=== PATIENT | male | born 1990 | race Caucasian/White ===

== ENCOUNTER 2017-03-15 21:48 | Emergency (ER) | payer MEDICAID ==
--- NOTE | 2017-03-15 22:24 | EDM.PDOC ---
ED HPI GENERAL MEDICAL PROBLEM - General Chief Complaint: Upper Extremity Injury/Pain Stated Complaint: injury to arm post seizure Time Seen by Provider: 03/15/17 21:50 Source of Information: Reports: Patient History Limitations: Reports: No Limitations - History of Present Illness INITIAL COMMENTS - FREE TEXT/NARRATIVE: According to patient he was wrestling in the ditch with his friend. He hurt his right wrist and then claims he had seizure, there was no witnessed seizure.. ambulance was called, when ambulance crew arrived , he was alert and had swelling over the right wrist. The wrist was splinted and pt was brought into the emergency room. Pt is alert, he dose recognizes me and his parents in the room, but keep saying he is just confused , but answers question appropriately. C/o pain in his wrist. No other injuries. No incontinence of stool or urine. No tongue biting . No nausea or vomiting. Pt has had chronic seizures and he is on lamictal and keppra for his seizure. Onset: Today Onset Date: 03/15/17 Onset Time: 21:00 Location: Reports: Other (right ) Severity: Moderate Improves with: Reports: Immobilization, Rest Worsens with: Reports: Movement Associated Symptoms: Reports: Confusion (pt keep ssaying he is confused, and is alert and oriented to time place and person), Seizure (per patient). Denies: Chest Pain, Cough, Diaphoresis, Fever/Chills, Headaches, Nausea/Vomiting, Shortness of Breath, Syncope, Weakness Right Lower Arm Pain Score (Numeric/FACES): 8 - Related Data Allergies Allergy/AdvReac Type Severity Reaction Status Date / Time azithromycin Allergy Hives Verified 03/15/17 22:18 Home Meds: Home Meds Calcium Citrate/Vitamin D3 [Calcium Citrate + D] 1 each PO BID 12/10/13 [History ] Cholecalciferol (Vitamin D3) [D3-2000] 2,000 unit PO DAILY 12/10/13 [History] Cyanocobalamin (Vitamin B-12) [B-12] 500 mcg PO DAILY 12/10/13 [History] Ferrous Sulfate 324 mg PO DAILY 12/10/13 [History] Magnesium Oxide [Magnesium] 400 mg PO DAILY 12/10/13 [History] Multivitamin [Multi-Vitamin Daily] 1 each PO DAILY 12/10/13 [History] Gabapentin [Neurontin] 400 mg PO QID 01/10/15 [History] traZODone 200 mg PO BEDTIME 01/10/15 [History] OLANZapine [Zyprexa] 5 mg PO DAILY 06/11/15 [History] ClonazePAM [KlonoPIN] 0.5 mg PO BID PRN 07/15/15 [History] lamoTRIgine [Lamictal] 50 mg PO DAILY 07/15/15 [History] Past Medical History Other Endocrine/Metabolic History: Hx of diabetes Social & Family History - Tobacco Use Smoking Status *Q: Never Smoker Years of Tobacco use: 4 Used Tobacco, but Quit: No Second Hand Smoke Exposure: Yes - Alcohol Use Days Per Week of Alcohol Use: 0 - Recreational Drug Use Recreational Drug Use: No Recreational Drug Type: Reports: Other (see below) Review of Systems - Review of Systems Review Of Systems: See Below Constitutional: Denies: Diaphoresis, Fever Eyes: Denies: Blurred Vision, Photophobia, Tunnel Vision Ears: Denies: Dizziness, Pain, Tinnitus Nose: Denies: Congestion, Clear Discharge Mouth/Throat: Denies: Bleeding, Pain, Throat Swelling, Hoarse Voice, Painful Swallowing Respiratory: Denies: Cough, Sputum Cardiovascular: Denies: Chest Pain, Syncope GI/Abdominal: Denies: Abdominal Pain, Nausea, Vomiting Genitourinary: Denies: Dysuria, Hematuria Musculoskeletal: Reports: Hand Pain. Denies: Neck Pain, Shoulder Pain, Muscle Stiffness Skin: Denies: Bruising, Pruritis, Rash Neurological: Reports: Confusion, Seizure. Denies: Dizziness, Headache, Numbness, Syncope, Tingling, Tremors, Difficulty Walking, Weakness ED EXAM, GENERAL - Physical Exam Exam: See Below Exam Limited By: No Limitations General Appearance: Alert, WD/WN, No Apparent Distress, Other (Pt is alert, orient to time ,palce and person, but keep trying to convince everyone that he is confused) Eye Exam: Bilateral Eye: EOMI, PERRL Ears: Normal External Exam, Normal Canal, Hearing Grossly Normal, Normal TMs Ear Exam: Bilateral Ear: Auricle Normal, Canal Normal, TM normal Nose: Normal Inspection, Normal Mucosa, No Blood Throat/Mouth: Normal Inspection, Normal Lips, Normal Teeth, Normal Gums, Normal Oropharynx, Normal Voice, No Airway Compromise Head: Atraumatic, Normocephalic Neck: Normal Inspection, Supple, Non-Tender, Full Range of Motion Respiratory/Chest: No Respiratory Distress, Lungs Clear, Normal Breath Sounds, No Accessory Muscle Use, Chest Non-Tender Cardiovascular: Normal Peripheral Pulses, Regular Rate, Rhythm, No Edema, No Gallop, No JVD, No Murmur, No Rub Peripheral Pulses: 2+: Radial (L), Radial (R) GI/Abdominal: Normal Bowel Sounds, Soft, Non-Tender, No Organomegaly, No Distention, No Abnormal Bruit, No Mass Extremities: Pedal Edema, Other (right wrist: there is swelling over the dorsum of the wrist. Tender over the wrist to aplaption. tendr over distal radius and ulna to palaption. Right wrist and forearm is in splint.) Neurological: Alert, Oriented, CN II-XII Intact, Normal Cognition, Normal Gait, Normal Reflexes, No Motor/Sensory Deficits. No: Disoriented, Slow to Respond, Abnormal Gait, Abnormal Reflexes Course - Vital Signs Text/Narrative:: Pt has been alert and oriented times 3 all through the emergency room visit. His CT head is negative for any acute injuries. He does have seizure history , but does not appear like he had one. I have advised patient to followup with his neurologist Apparently patient was wrestling with his friends in a ditch and hurt his right wrist and sustained comminuted distal radial fracture with intra-articular extension of the fracture. I have applied wrist splint. Advised elevation. Arm placed in arm sling. Motrin 800mg 3 times daily as needed. I have talked to Dr. Gusman, orthopaedist personal banking officer at [facility]. She prefer to have patient seen at [facility] clinic in the morning. Pt has been given the clinic phone number and advised to call tomorrow morning and have appointment set up. - Orders/Labs/Meds Orders: Active Orders 24 hr Category Date Time Status Head wo Cont [CT] Stat Exams 03/15/17 22:15 Ordered Wrist Comp Min 3V Rt [CR] Stat Exams 03/15/17 22:13 Ordered DRUG SCREEN, URINE [URCHEM] Stat Lab 03/15/17 22:30 Uncollected Labs: Laboratory Tests 03/15/17 03/15/17 Range/Units 22:23 22:23 WBC 7.7 (4.0-11.0) K/uL RBC 4.27 L (4.50-6.50) M/uL Hgb 13.7 (13.0-18.0) g/dL Hct 39.9 L (40.0-54.0) % MCV 93 (76-96) fL MCH 32.1 H (27.0-32.0) pg MCHC 34.3 (31.0-35.0) g/dL RDW 12.3 (11.0-16.0) % Plt Count 220 D (150-400) K/uL MPV 10.5 H (6.0-10.0) fL Neut % (Auto) 54.1 (45.0-70.0) % Lymph % (Auto) 34.3 (20.0-40.0) % [place] % (Auto) 9.6 (3.0-10.0) % Eos % (Auto) 1.6 (1.0-5.0) % Baso % (Auto) 0.4 (0.0-0.5) % Neut # (Auto) 4.16 (2.00-7.50) K/uL Lymph # (Auto) 2.64 (1.50-4.00) K/uL [place] # (Auto) 0.74 (0.20-0.80) K/uL Eos # (Auto) 0.12 (0.04-0.40) K/uL Baso # (Auto) 0.03 (0.02-0.10) K/uL Sodium 136 (136-145) mmol/L Potassium 3.5 (3.5-5.1) mmol/L Chloride 100 (98-107) mmol/L Carbon Dioxide 26.3 (21.0-32.0) mmol/L Anion Gap 13.2 (5.0-15.0) mmol/L BUN 11 D (8-26) mg/dL Creatinine 1.06 (0.70-1.30) mg/dL Est Cr Clr Drug Dosing TNP Estimated GFR (MDRD) > 60 (>60) MLS/MIN BUN/Creatinine Ratio 10.4 (6-25) Glucose 102 H (74-100) mg/dL Calcium 8.9 (8.5-10.1) mg/dL Phosphorus 3.1 (2.5-4.9) mg/dL Magnesium 2.0 (1.8-2.4) mg/dL Total Bilirubin 0.4 D (0.0-1.0) mg/dL AST 20 (15-37) U/L ALT 28 (12-78) U/L Alkaline Phosphatase 119 H (46-116) U/L Total Protein 7.5 (6.4-8.2) g/dL Albumin 4.1 (3.4-5.0) g/dL Globulin 3.4 (2.2-4.2) g/dL Albumin/Globulin Ratio 1.2 (0.8-2.0) Departure - Departure Time of Disposition: 23:30 Disposition: Home, Self-Care 01 Condition: Good Clinical Impression: Distal radius fracture, right, Seizure disorder - Discharge Information Forms: ED Department Discharge - Problem List & Annotations (1) Distal radius fracture, right SNOMED Code(s): 557632375 Code(s): S52.501A - UNSP FRACTURE OF THE LOWER END OF RIGHT RADIUS, INIT Status: Acute Current Visit: Yes (2) Seizure disorder SNOMED Code(s): 126208615 Code(s): G40.909 - EPILEPSY, UNSP, NOT INTRACTABLE, WITHOUT STATUS EPILEPTICUS Status: Acute Current Visit: Yes - Problem List Review Problem List Initiated/Reviewed/Updated: Yes - My Orders Last 24 Hours: My Active Orders 03/15/17 22:13 Wrist Comp Min 3V Rt [CR] Stat 03/15/17 22:15 Head wo Cont [CT] Stat 03/15/17 22:30 DRUG SCREEN, URINE [URCHEM] Stat - Assessment/Plan Last 24 Hours: My Active Orders 03/15/17 22:13 Wrist Comp Min 3V Rt [CR] Stat 03/15/17 22:15 Head wo Cont [CT] Stat 03/15/17 22:30 DRUG SCREEN, URINE [URCHEM] Stat Assessment:: Right distal radius intraarticular fracture Seizure disorder Plan: Pt has been alert and oriented times 3 all through the emergency room visit. His CT head is negative for any acute injuries. He does have seizure history , but does not appear like he had one. I have advised patient to followup with his neurologist Apparently patient was wrestling with his friends in a ditch and hurt his right wrist and sustained comminuted distal radial fracture with intra-articular extension of the fracture. I have applied wrist splint. Advised elevation. Arm placed in arm sling. Motrin 800mg 3 times daily as needed. I have talked to Dr. Gusman, orthopaedist personal banking officer at [facility]. She prefer to have patient seen at [facility] in the morning. Pt has been given the clinic phone number and advised to call tomorrow morning and have appointment set up.
[2017-03-16 00:43] VITALS: BP 150/99
--- NOTE | 2017-03-16 09:29 | CT ---
DATE OF SERVICE: 03/15/17 CLINICAL DATA: possible seizures UNENHANCED BRAIN CT: Multislice acquisition through the brain without IV contrast was performed. Comparison is made to a prior exam dated 09/10/15. No changes. No acute intracranial abnormalities. [id number] [facility], [place]
--- NOTE | 2017-03-16 09:33 | CR ---
DATE OF SERVICE: 03/15/17 CLINICAL DATA: Right wrist injury RIGHT WRIST: There is an impacted comminuted intra-articular fracture through the distal radius with ventral displacement of the distal fragments with respect to the proximal. There is also a minimally displaced oblique fracture through the base of the ulnar styloid. No other acute abnormalities. [id number] [facility]
== END 2017-03-15 23:55 | disposition home or self-care (01) ==
LOC: LB.ED 21:48
DX: S52.501A Unspecified fracture of the lower end of right radius, initial encounter for closed fracture (principal); G40.909 Epilepsy, unspecified, not intractable, without status epilepticus; E11.9 Type 2 diabetes mellitus without complications; Z88.8 Allergy status to other drugs, medicaments and biological substances; Z79.899 Other long term (current) drug therapy; Y04.8XXA Assault by other bodily force, initial encounter; Y93.72 Activity, wrestling
CPT/HCPCS: 29125; 36415; 70450; 73110; 80053; 80307; 83735; 84100; 85025; 99283; A0425; A0429

== ENCOUNTER 2017-03-17 20:10 | Emergency (ER) | payer MEDICAID ==
[2017-03-17] MEDS ORDERED: Ibuprofen 800 MG Tab ONE (20:15)
[2017-03-17] MEDS ORDERED: Acetaminophen/Codeine 300-30 MG Tab ONE (20:20)
--- NOTE | 2017-03-17 20:28 | EDM.PDOC ---
ED HPI GENERAL MEDICAL PROBLEM - General Chief Complaint: General Stated Complaint: arm pain Time Seen by Provider: 03/17/17 20:23 Source of Information: Reports: Patient History Limitations: Reports: No Limitations - History of Present Illness INITIAL COMMENTS - FREE TEXT/NARRATIVE: Patient has a fractured right forearm in 2 places that occurred as a result of a seizure. He has a splint on and has ran out of Tylenol #3 and would like some more until being seen for surgical repair on Monday March 20, 2017. Onset Date: 03/13/17 Duration: Day(s): Location: Reports: Upper Extremity, Right Quality: Reports: Ache, Throbbing Improves with: Reports: Medication Worsens with: Reports: Movement Context: Reports: Activity, Trauma Treatments SHEAR SETTER: Reports: Other Medication(s) - Related Data Allergies Allergy/AdvReac Type Severity Reaction Status Date / Time azithromycin Allergy Hives Verified 03/15/17 22:18 Home Meds: Home Meds Calcium Citrate/Vitamin D3 [Calcium Citrate + D] 1 each PO BID 12/10/13 [History ] Cholecalciferol (Vitamin D3) [D3-2000] 2,000 unit PO DAILY 12/10/13 [History] Cyanocobalamin (Vitamin B-12) [B-12] 500 mcg PO DAILY 12/10/13 [History] Ferrous Sulfate 324 mg PO DAILY 12/10/13 [History] Magnesium Oxide [Magnesium] 400 mg PO DAILY 12/10/13 [History] Multivitamin [Multi-Vitamin Daily] 1 each PO DAILY 12/10/13 [History] Gabapentin [Neurontin] 400 mg PO QID 01/10/15 [History] traZODone 200 mg PO BEDTIME 01/10/15 [History] OLANZapine [Zyprexa] 5 mg PO DAILY 06/11/15 [History] ClonazePAM [KlonoPIN] 0.5 mg PO BID PRN 07/15/15 [History] lamoTRIgine [Lamictal] 50 mg PO DAILY 07/15/15 [History] Past Medical History Genitourinary History: Reports: Renal Calculus Neurological History: Reports: Seizure Psychiatric History: Reports: ADHD, Anxiety, Panic Attack, Suicide Attempt Other Endocrine/Metabolic History: Hx of diabetes - Infectious Disease History Infectious Disease History: Reports: Chicken Pox - Past Surgical History HEENT Surgical History: Reports: Adenoidectomy, Oral Surgery, Tonsillectomy GI Surgical History: Reports: Appendectomy, Bariatric Procedure, Cholecystectomy , Hernia, Abdominal Social & Family History - Tobacco Use Smoking Status *Q: Never Smoker Years of Tobacco use: 4 Packs/Tins Daily: 1 Used Tobacco, but Quit: No Second Hand Smoke Exposure: Yes - Caffeine Use Caffeine Use: Reports: Coffee, Energy Drinks, Soda - Alcohol Use Days Per Week of Alcohol Use: 0 - Recreational Drug Use Recreational Drug Use: No Recreational Drug Type: Reports: Other (see below) ED ROS GENERAL - Review of Systems Review Of Systems: See Below Constitutional: Reports: No Symptoms HEENT: Reports: No Symptoms Respiratory: Reports: No Symptoms Cardiovascular: Reports: No Symptoms Endocrine: Reports: No Symptoms GI/Abdominal: Reports: No Symptoms : Reports: No Symptoms Musculoskeletal: Reports: Arm Pain Skin: Reports: No Symptoms Neurological: Reports: No Symptoms Psychiatric: Reports: No Symptoms Hematologic/Lymphatic: Reports: No Symptoms Immunologic: Reports: No Symptoms ED EXAM, GENERAL - Physical Exam Exam: See Below Exam Limited By: No Limitations General Appearance: Alert, WD/WN, No Apparent Distress Eye Exam: Bilateral Eye: Normal Fundi, Normal Inspection, PERRL Ears: Normal External Exam, Normal Canal, Hearing Grossly Normal, Normal TMs Ear Exam: Bilateral Ear: Auricle Normal, Canal Normal, TM normal Nose: Normal Inspection Throat/Mouth: Normal Inspection, Normal Lips, Normal Teeth, Normal Gums, Normal Oropharynx, Normal Voice, No Airway Compromise Head: Atraumatic, Normocephalic Neck: Carotid Bruit Respiratory/Chest: No Respiratory Distress, Lungs Clear, Normal Breath Sounds, No Accessory Muscle Use, Chest Non-Tender Cardiovascular: Normal Peripheral Pulses, Regular Rate, Rhythm, No Edema, No Gallop, No JVD, No Murmur, No Rub Extremities: Arm Pain, Other Neurological: Alert, Oriented, CN II-XII Intact, Normal Cognition, Normal Gait, Normal Reflexes, No Motor/Sensory Deficits Psychiatric: Normal Affect, Normal Mood Skin Exam: Warm, Dry, Intact, Normal Color, No Rash Lymphatic: No Adenopathy Course - Vital Signs Text/Narrative:: Unremarkable ED course. Departure - Departure Time of Disposition: 20:36 Disposition: Home, Self-Care 01 Clinical Impression: Closed right forearm fracture - Discharge Information Forms: ED Department Discharge
[2017-03-17 20:52] VITALS: BP 114/88
== END 2017-03-17 20:40 | disposition home or self-care (01) ==
LOC: LB.ED 20:10
DX: S52.91XA Unspecified fracture of right forearm, initial encounter for closed fracture (principal); F90.9 Attention-deficit hyperactivity disorder, unspecified type; F41.9 Anxiety disorder, unspecified; Z90.49 Acquired absence of other specified parts of digestive tract; Z98.890 Other specified postprocedural states; Z98.84 Bariatric surgery status; Z79.899 Other long term (current) drug therapy; Z88.1 Allergy status to other antibiotic agents; X58.XXXA Exposure to other specified factors, initial encounter
CPT/HCPCS: 99283; A9270; 99282

== ENCOUNTER 2017-03-24 03:11 | Emergency (ER) | payer MEDICAID ==
[2017-03-24 03:40] VITALS: BP 148/98
[2017-03-24] MEDS ORDERED: Ketorolac 60 MG/2 ML SDV IM ONE (03:47)
--- NOTE | 2017-03-24 10:54 | ER ---
HPI: A 27-year-old male here for a postop condition. The patient fell while having a seizure he tells me. He fractured his right distal forearm. The patient had surgery in [place] 2 days ago where hardware was placed. The patient is here tonight because of pain management issues. He has been taking hydrocodone 5/325 two tablets every 4-6 hours as directed. He has also been taking ibuprofen 800 mg t.i.d., the last dose was last evening about 7 hours ago. The patient tells me he cannot sleep because of the pain and feels he needs something more. The patient has not been running a fever and does not feel sick other than he is concerned about some bruising in the elbow area. OBJECTIVE: GENERAL APPEARANCE: The patient is awake and alert, in no obvious respiratory distress. VITAL SIGNS: Reviewed. He is afebrile, pulse is 71, blood pressure 148/92. Examining the patient's right arm reveals a short arm cast is in place. The fingers have good color and are warm to touch. Capillary refills good involving the finger tips. The patient does have some bruising involving the elbow area just proximal to the cast. The patient can flex and extend the elbow in a slightly guarded fashion without any difficulty. The cast is in place and dry. DIAGNOSIS: Postop pain. TREATMENT PLAN: Toradol 60 mg will be given IM. The patient is to hold his morning dose of ibuprofen. He is to continue with his [place] as he has been taking them, and I want the patient to call the surgeon's office in the morning anytime after 8 o'clock to discuss pain control further. The patient agrees with the treatment plan and has no further questions. CRS/MODL /[id number]
== END 2017-03-24 03:55 | disposition home or self-care (01) ==
LOC: LB.ED 03:11
DX: G89.18 Other acute postprocedural pain (principal)
CPT/HCPCS: 96372; 99283; J1885; 99281

== ENCOUNTER 2017-03-25 18:21 | Emergency (ER) | payer MEDICAID ==
[~2017-03-25 18:21] MED LIST: Acetaminophen/HYDROcodone 325-5 MG Tab ONE
[2017-03-25 18:28] VITALS: BP 130/84
[2017-03-25] MEDS ORDERED: Ketorolac 60 MG/2 ML SDV IM ONE (19:07)
[2017-03-25] MEDS ORDERED: Ketorolac 60 MG/2 ML SDV ONE (19:08)
--- NOTE | 2017-03-26 16:16 | EDM.PDOC ---
ED HPI GENERAL MEDICAL PROBLEM - General Chief Complaint: Upper Extremity Injury/Pain Stated Complaint: arm pain Time Seen by Provider: 03/25/17 19:00 Source of Information: Reports: Patient History Limitations: Reports: No Limitations - History of Present Illness INITIAL COMMENTS - FREE TEXT/NARRATIVE: This is a 27yo M with recent ORIF for his right forearm fracture. Patient states he was given 20 hydrocodone to take 2 tabs every 4-6 hours and he has been taking them every 4 hours and has taken them all. He states he is in a lot of pain and didn't know what to do. He couldn't call his Surgeon as his surgeon is not available and he is restricted to this ER. Duration: Day(s): Location: Reports: Upper Extremity, Right Quality: Reports: Same as Previous Episode Improves with: Reports: None Worsens with: Reports: None Treatments BUCKET TURNER: Reports: Other (see below) Other Treatments BUCKET TURNER: Motrin and ice, elevated RUE Right Wrist Pain Score (Numeric/FACES): 7 - Related Data Allergies Allergy/AdvReac Type Severity Reaction Status Date / Time azithromycin Allergy Hives Verified 03/24/17 03:38 Home Meds: Home Meds Calcium Citrate/Vitamin D3 [Calcium Citrate + D] 1 each PO BID 12/10/13 [History ] Cholecalciferol (Vitamin D3) [D3-2000] 2,000 unit PO DAILY 12/10/13 [History] Cyanocobalamin (Vitamin B-12) [B-12] 500 mcg PO DAILY 12/10/13 [History] Ferrous Sulfate 324 mg PO DAILY 12/10/13 [History] Magnesium Oxide [Magnesium] 400 mg PO DAILY 12/10/13 [History] Multivitamin [Multi-Vitamin Daily] 1 each PO DAILY 12/10/13 [History] Gabapentin [Neurontin] 400 mg PO QID 01/10/15 [History] traZODone 200 mg PO BEDTIME 01/10/15 [History] OLANZapine [Zyprexa] 5 mg PO DAILY 06/11/15 [History] ClonazePAM [KlonoPIN] 0.5 mg PO BID PRN 07/15/15 [History] lamoTRIgine [Lamictal] 50 mg PO DAILY 07/15/15 [History] Past Medical History Genitourinary History: Reports: Renal Calculus Musculoskeletal History: Reports: Fracture Other Musculoskeletal History: R wrist Fx 03/15/2017 Neurological History: Reports: Seizure Psychiatric History: Reports: ADHD, Anxiety, Bipolar, Panic Attack, Suicide Attempt Other Endocrine/Metabolic History: Hx of diabetes - Infectious Disease History Infectious Disease History: Reports: Chicken Pox - Past Surgical History HEENT Surgical History: Reports: Adenoidectomy, Oral Surgery, Tonsillectomy GI Surgical History: Reports: Appendectomy, Bariatric Procedure, Cholecystectomy , Hernia, Abdominal Musculoskeletal Surgical History: Reports: Other (See Below) Other Musculoskeletal Surgeries/Procedures:: Surgical fixation of R wrist Fx on 03/20/2017 Social & Family History - Family History Family Medical History: Noncontributory - Tobacco Use Smoking Status *Q: Never Smoker Years of Tobacco use: 2 Packs/Tins Daily: 0.5 Used Tobacco, but Quit: No Second Hand Smoke Exposure: No - Caffeine Use Caffeine Use: Reports: Soda - Alcohol Use Days Per Week of Alcohol Use: 0 - Recreational Drug Use Recreational Drug Use: No Drug Use in Last 12 Months: No Recreational Drug Type: Reports: Other (see below) Review of Systems - Review of Systems Review Of Systems: ROS reveals no pertinent complaints other than HPI. ED EXAM, GENERAL - Physical Exam Exam: See Below Exam Limited By: No Limitations General Appearance: Alert, WD/WN, No Apparent Distress Eye Exam: Bilateral Eye: EOMI Respiratory/Chest: No Respiratory Distress, Lungs Clear, Normal Breath Sounds Cardiovascular: Normal Peripheral Pulses, Regular Rate, Rhythm Peripheral Pulses: 2+: Radial (L), Radial (R) Extremities: Other (right forearm splint) Neurological: Alert, Oriented, CN II-XII Intact Course - Vital Signs Last Recorded V/S: Last Vital Signs Temp 36.3 C 03/25/17 18:27 Pulse 109 H 03/25/17 18:27 Resp 20 03/25/17 18:27 BP 130/84 03/25/17 18:27 Pulse Ox 98 03/25/17 18:27 - Orders/Labs/Meds Meds: Medications Discontinued Medications Generic Name Dose Route Start Last Admin Trade Name Freq PRN Reason Stop Dose Admin Hydrocodone Bitart/Acetaminophen 10 tab 03/25/17 18:20 [place] 325-5 Mg .ROUTE 03/25/17 18:21 .STK-MED ONE Ketorolac Tromethamine 60 mg 03/25/17 19:07 03/25/17 19:08 Toradol IM 03/25/17 19:08 60 mg ONETIME ONE Administration Ketorolac Tromethamine Confirm 03/25/17 19:08 Toradol Administered 03/25/17 19:09 Dose 60 mg .ROUTE .STK-MED ONE Departure - Departure Time of Disposition: 19:00 Disposition: Home, Self-Care 01 Condition: Good Clinical Impression: Fracture of radius and ulna Qualifiers: Encounter type: sequela Laterality: right Qualified Code(s): S52.501S - Unspecified fracture of the lower end of right radius, sequela; S52.201S - Unspecified fracture of shaft of right ulna, sequela; S52.601S - Unspecified fracture of lower end of right ulna, sequela - Discharge Information Instructions: Acetaminophen; Hydrocodone tablets or capsules, Ketorolac injection Referrals: PCP,None [Primary Care Provider] - Forms: ED Department Discharge Care Plan Goals: TAKE HYDROCODONE ONE TABLET EVERY 6 HOURS. CONTINUE TO USE IBUPROFEN YOU HAVE AND ELEVATE AND ALSO USE ICE TOLERATED 20 MINUTES OF EVERY HOUR NEEDED. - Problem List Review Problem List Initiated/Reviewed/Updated: Yes - Assessment/Plan Plan: Counseled on sparing use of hydrocodone. Patient counseled on taking the hydrocone and not to over use and follow up with surgeon for further refills and that he will not obtain any further refills for this injury unless the surgeon prescribes more. Discussed close monitoring and f/u in clinic rather than ER. Patient agrees with plan of care and f/u.
== END 2017-03-25 19:15 | disposition home or self-care (01) ==
LOC: LB.ED 18:21
DX: S52.601S Unspecified fracture of lower end of right ulna, sequela (principal); S52.501S Unspecified fracture of the lower end of right radius, sequela; S52.201S Unspecified fracture of shaft of right ulna, sequela; F41.0 Panic disorder [episodic paroxysmal anxiety]; F31.9 Bipolar disorder, unspecified; E11.9 Type 2 diabetes mellitus without complications; Z90.49 Acquired absence of other specified parts of digestive tract; Z98.890 Other specified postprocedural states; Z98.84 Bariatric surgery status; Z79.899 Other long term (current) drug therapy; Z88.1 Allergy status to other antibiotic agents; X58.XXXS Exposure to other specified factors, sequela
CPT/HCPCS: 96372; 99283; A9270; J1885; 99282

== ENCOUNTER 2017-04-11 21:11 | Emergency (ER) | payer MEDICAID ==
--- NOTE | 2017-04-11 21:29 | EDM.PDOC ---
ED HPI GENERAL MEDICAL PROBLEM - General Chief Complaint: Neuro Symptoms/Deficits Stated Complaint: SEIZURES Time Seen by Provider: 04/11/17 21:15 Source of Information: Reports: Patient History Limitations: Reports: No Limitations - History of Present Illness INITIAL COMMENTS - FREE TEXT/NARRATIVE: Pt is giving the history, apparently he was at his AA meeting today, when he started to have seizure. he claims that he started to shake all over his body and the shaking cleared off and he was confused. He has no froathing or tongue biting. No incontinence of stool or urine. Also he is alert. he answer questions appropriately. No nausea or vomiting. Pt had 2 similar episodes during his stay in the emergency , he starts to hold his arms against his chest and starts to hold it tight and starts to shake his lower extremities. The shaking episodes last for about 1 minutes and then he stops shaking his body and he is awake. he starts to answer the questions appropriately and keeps asking if we have witnessed the seizure he just had. He has one more episode few minutes later. Both episodes mimic each other and last for less than 1 minute. He claims he is confused, he recognizes everyone around him and is alert and oriented. No fever or chills.Claims he has been to Neurologist in [facility] in the past and presently trying to see a Neurologist at [facility]. Onset: Today Duration: Intermittent Improves with: Reports: None Worsens with: Reports: None Associated Symptoms: Denies: Confusion, Chest Pain, Cough, Diaphoresis, Fever/ Chills, Nausea/Vomiting, Rash, Seizure, Shortness of Breath, Syncope, Weakness - Related Data Allergies Allergy/AdvReac Type Severity Reaction Status Date / Time azithromycin Allergy Hives Verified 03/24/17 03:38 Home Meds: Home Meds Calcium Citrate/Vitamin D3 [Calcium Citrate + D] 1 each PO BID 12/10/13 [History ] Cholecalciferol (Vitamin D3) [D3-2000] 2,000 unit PO DAILY 12/10/13 [History] Cyanocobalamin (Vitamin B-12) [B-12] 500 mcg PO DAILY 12/10/13 [History] Ferrous Sulfate 324 mg PO DAILY 12/10/13 [History] Magnesium Oxide [Magnesium] 400 mg PO DAILY 12/10/13 [History] Multivitamin [Multi-Vitamin Daily] 1 each PO DAILY 12/10/13 [History] Gabapentin [Neurontin] 400 mg PO QID 01/10/15 [History] OLANZapine [Zyprexa] 5 mg PO DAILY 06/11/15 [History] ClonazePAM [KlonoPIN] 0.5 mg PO BID PRN 07/15/15 [History] lamoTRIgine [Lamictal] 50 mg PO DAILY 07/15/15 [History] Lurasidone [Latuda] 100 mg DAILY 04/11/17 [History] Past Medical History Genitourinary History: Reports: Renal Calculus Musculoskeletal History: Reports: Fracture Other Musculoskeletal History: R wrist Fx 03/15/2017 Neurological History: Reports: Seizure Psychiatric History: Reports: ADHD, Anxiety, Bipolar, Panic Attack, Suicide Attempt Other Endocrine/Metabolic History: Hx of diabetes - Infectious Disease History Infectious Disease History: Reports: Chicken Pox - Past Surgical History HEENT Surgical History: Reports: Adenoidectomy, Oral Surgery, Tonsillectomy GI Surgical History: Reports: Appendectomy, Bariatric Procedure, Cholecystectomy , Hernia, Abdominal Musculoskeletal Surgical History: Reports: Other (See Below) Other Musculoskeletal Surgeries/Procedures:: Surgical fixation of R wrist Fx on 03/20/2017 Social & Family History - Family History Family Medical History: Noncontributory - Tobacco Use Smoking Status *Q: Never Smoker Years of Tobacco use: 2 Packs/Tins Daily: 0.5 Used Tobacco, but Quit: No Second Hand Smoke Exposure: No - Caffeine Use Caffeine Use: Reports: Soda - Alcohol Use Days Per Week of Alcohol Use: 0 - Recreational Drug Use Recreational Drug Use: No Drug Use in Last 12 Months: No Recreational Drug Type: Reports: Other (see below) ED ROS GENERAL - Review of Systems Review Of Systems: See Below Constitutional: Denies: Fever, Chills HEENT: Denies: Sinus Problem, Throat Pain, Throat Swelling Respiratory: Denies: Shortness of Breath, Wheezing, Cough, Sputum Cardiovascular: Denies: Chest Pain, Edema GI/Abdominal: Denies: Abdominal Pain, Nausea, Vomiting Musculoskeletal: Reports: Other (Right forearm in short arm cast.). Denies: Joint Pain, Joint Swelling Neurological: Denies: Confusion, Dizziness, Headache, Numbness, Paresthesia, Tingling, Tremors, Gait Disturbance ED EXAM, GENERAL - Physical Exam Exam: See Below Exam Limited By: No Limitations General Appearance: Alert, WD/WN, No Apparent Distress Eye Exam: Bilateral Eye: EOMI, PERRL Ears: Normal External Exam, Normal Canal, Hearing Grossly Normal, Normal TMs Ear Exam: Bilateral Ear: Auricle Normal, Canal Normal, TM normal Nose: Normal Inspection, Normal Mucosa, No Blood Throat/Mouth: Normal Inspection, Normal Lips, Normal Teeth, Normal Gums, Normal Oropharynx, Normal Voice, No Airway Compromise Head: Atraumatic, Normocephalic Neck: Normal Inspection, Supple, Non-Tender, Full Range of Motion Respiratory/Chest: No Respiratory Distress, Lungs Clear, Normal Breath Sounds, No Accessory Muscle Use, Chest Non-Tender Cardiovascular: Normal Peripheral Pulses, Regular Rate, Rhythm, No Edema, No Gallop, No JVD, No Murmur, No Rub Peripheral Pulses: 2+: Radial (L), Radial (R) GI/Abdominal: Normal Bowel Sounds, Soft, Non-Tender, No Organomegaly, No Distention, No Abnormal Bruit, No Mass Extremities: Normal Inspection, Normal Range of Motion, Non-Tender, Normal Capillary Refill, No Pedal Edema Neurological: Alert, Oriented, CN II-XII Intact, Normal Cognition, Normal Gait, Normal Reflexes, No Motor/Sensory Deficits Skin Exam: Warm, Intact Course - Vital Signs Text/Narrative:: Pt has had 3 episodes of tremors in the emergency room and he is immediately alert and oriented. he keeps asking if we have witnessed his seizures. and there is no incontinence of urine or stool. There is no typical tonic clonic pattern either. Pt does not appear confused presently. I have done his CBC,CMP , Magnesium and Phosphorus, which are normal. It does appear like Pseudo- seizures from presentation. I ask patient to give urine sample for drug screen, gets upset. Claims he cannot walk. He is stable enough, I did advise him to try going to toilet, if he cannot will try giving him urinal. He did walk into the toilet and give sample himself. His CBC is normal. His CMP is normal. His Phosphorus is at lower end of normal. His urine drug screen shows opiates and tricyclics,and opt takes it.. Pt is c/o pain in his thigh from seizures. He is able to walk. He did receive toradol 60mg IM. Last Recorded V/S: Last Vital Signs Temp 100.8 F H 04/11/17 21:16 Pulse 135 H 04/11/17 21:16 Resp 20 04/11/17 21:16 BP 144/93 H 04/11/17 21:16 Pulse Ox 97 04/11/17 21:16 - Orders/Labs/Meds Orders: Active Orders 24 hr Category Date Time Status DRUG SCREEN, URINE [URCHEM] Stat Lab 04/11/17 21:52 Uncollected Labs: Laboratory Tests 04/11/17 04/11/17 04/11/17 Range/Units 21:30 21:30 21:30 WBC 7.3 (4.0-11.0) K/uL RBC 4.34 L (4.50-6.50) M/uL Hgb 13.7 (13.0-18.0) g/dL Hct 39.7 L (40.0-54.0) % MCV 92 (76-96) fL MCH 31.6 (27.0-32.0) pg MCHC 34.5 (31.0-35.0) g/dL RDW 11.8 (11.0-16.0) % Plt Count 238 (150-400) K/uL MPV 9.8 (6.0-10.0) fL Neut % (Auto) 46.6 (45.0-70.0) % Lymph % (Auto) 40.1 H (20.0-40.0) % [place] % (Auto) 9.9 (3.0-10.0) % Eos % (Auto) 2.9 (1.0-5.0) % Baso % (Auto) 0.5 (0.0-0.5) % Neut # (Auto) 3.39 (2.00-7.50) K/uL Lymph # (Auto) 2.92 (1.50-4.00) K/uL [place] # (Auto) 0.72 (0.20-0.80) K/uL Eos # (Auto) 0.21 (0.04-0.40) K/uL Baso # (Auto) 0.04 (0.02-0.10) K/uL Sodium 141 (136-145) mmol/L Potassium 4.3 D (3.5-5.1) mmol/L Chloride 104 (98-107) mmol/L Carbon Dioxide 24.2 (21.0-32.0) mmol/L Anion Gap 17.1 H (5.0-15.0) mmol/L BUN 11 (8-26) mg/dL Creatinine 1.04 (0.70-1.30) mg/dL Est Cr Clr Drug Dosing 109.19 mL/min Estimated GFR (MDRD) > 60 (>60) MLS/MIN BUN/Creatinine Ratio 10.6 (6-25) Glucose 94 (74-100) mg/dL Calcium 9.1 (8.5-10.1) mg/dL Phosphorus (2.5-4.9) mg/dL Magnesium 2.3 (1.8-2.4) mg/dL Total Bilirubin 0.1 D (0.0-1.0) mg/dL AST 16 (15-37) U/L ALT 29 (12-78) U/L Alkaline Phosphatase 138 H (46-116) U/L Total Protein 7.2 (6.4-8.2) g/dL Albumin 3.8 (3.4-5.0) g/dL Globulin 3.4 (2.2-4.2) g/dL Albumin/Globulin Ratio 1.1 (0.8-2.0) Ur Oxycodone Screen (NEGATIVE) 04/11/17 04/11/17 Range/Units 21:30 21:52 WBC (4.0-11.0) K/uL RBC (4.50-6.50) M/uL Hgb (13.0-18.0) g/dL Hct (40.0-54.0) % MCV (76-96) fL MCH (27.0-32.0) pg MCHC (31.0-35.0) g/dL RDW (11.0-16.0) % Plt Count (150-400) K/uL MPV (6.0-10.0) fL Neut % (Auto) (45.0-70.0) % Lymph % (Auto) (20.0-40.0) % [place] % (Auto) (3.0-10.0) % Eos % (Auto) (1.0-5.0) % Baso % (Auto) (0.0-0.5) % Neut # (Auto) (2.00-7.50) K/uL Lymph # (Auto) (1.50-4.00) K/uL [place] # (Auto) (0.20-0.80) K/uL Eos # (Auto) (0.04-0.40) K/uL Baso # (Auto) (0.02-0.10) K/uL Sodium (136-145) mmol/L Potassium (3.5-5.1) mmol/L Chloride (98-107) mmol/L Carbon Dioxide (21.0-32.0) mmol/L Anion Gap (5.0-15.0) mmol/L BUN (8-26) mg/dL Creatinine (0.70-1.30) mg/dL Est Cr Clr Drug Dosing mL/min Estimated GFR (MDRD) (>60) MLS/MIN BUN/Creatinine Ratio (6-25) Glucose (74-100) mg/dL Calcium (8.5-10.1) mg/dL Phosphorus 2.3 L (2.5-4.9) mg/dL Magnesium (1.8-2.4) mg/dL Total Bilirubin (0.0-1.0) mg/dL AST (15-37) U/L ALT (12-78) U/L Alkaline Phosphatase (46-116) U/L Total Protein (6.4-8.2) g/dL Albumin (3.4-5.0) g/dL Globulin (2.2-4.2) g/dL Albumin/Globulin Ratio (0.8-2.0) Ur Oxycodone Screen Negative (NEGATIVE) Meds: Medications Discontinued Medications Generic Name Dose Route Start Last Admin Trade Name Rubi PRN Reason Stop Dose Admin Ketorolac Tromethamine 60 mg 04/11/17 22:07 04/11/17 22:10 Toradol IM 04/11/17 22:08 60 mg ONETIME ONE Administration Ketorolac Tromethamine Confirm 04/11/17 22:10 04/11/17 22:13 Toradol Administered 04/11/17 22:11 Not Given Dose 60 mg .ROUTE .STK-MED ONE Departure - Departure Time of Disposition: 22:30 Disposition: Home, Self-Care 01 Condition: Fair Clinical Impression: Pseudoseizures - Discharge Information Forms: ED Department Discharge Additional Instructions: His CBC is normal. His CMP is normal. His Phosphorus and Magnesium levels are normal. His urine drug screen is positive for opiate and tricyclic,and patient is taking these meds presently. Pt is c/o pain in his thigh from seizures. He is able to walk. He did receive toradol 60mg IM. Continue home medications Pt advised to followup with his Primary car provider in Clinic. Also advised to keep his neurologist appointment at [facility]. - Problem List & Annotations (1) Pseudoseizures SNOMED Code(s): 377172136 Code(s): F44.5 - CONVERSION DISORDER WITH SEIZURES OR CONVULSIONS Status: Acute Current Visit: Yes - Problem List Review Problem List Initiated/Reviewed/Updated: Yes - My Orders Last 24 Hours: My Active Orders 04/11/17 21:52 DRUG SCREEN, URINE [URCHEM] Stat - Assessment/Plan Last 24 Hours: My Active Orders 04/11/17 21:52 DRUG SCREEN, URINE [URCHEM] Stat Assessment:: Pseudoseizures Plan: Pt has had 3 episodes of tremors in the emergency room and he is immediately alert and oriented. he keeps asking if we have witnessed his seizures. and there is no incontinence of urine or stool. There is no typical tonic clonic pattern either. Pt does not appear confused presently. I have done his CBC,CMP , Magnesium and Phosphorus, which are normal. It does appear like Pseudo- seizures from presentation. I ask patient to give urine sample for drug screen, gets upset. Claims he cannot walk. He is stable enough, I did advise him to try going to toilet, if he cannot will try giving him urinal. He did walk into the toilet and give sample himself. His CBC is normal. His CMP is normal. His Phosphorus and Magnesium levels are normal. His urine drug screen is positive for opiate and tricyclic,and patient is taking these meds presently.. Pt is c/o pain in his thigh from seizures. He is able to walk. He did receive toradol 60mg IM. Continue home medications Pt advised to followup with his Primary car provider in Clinic. Also advised to keep his neurologist appointment at [facility].
[2017-04-11] MEDS ORDERED: Ketorolac 60 MG/2 ML SDV IM ONE (22:07)
[2017-04-11] MEDS ORDERED: Ketorolac 60 MG/2 ML SDV ONE (22:10)
[2017-04-11 22:18] VITALS: BP 153/97
== END 2017-04-11 22:32 | disposition home or self-care (01) ==
LOC: LB.ED 21:11
DX: R56.9 Unspecified convulsions (principal); F31.9 Bipolar disorder, unspecified; F41.0 Panic disorder [episodic paroxysmal anxiety]; Z87.442 Personal history of urinary calculi; Z98.84 Bariatric surgery status; Z90.49 Acquired absence of other specified parts of digestive tract; Z98.890 Other specified postprocedural states; Z79.899 Other long term (current) drug therapy; Z88.1 Allergy status to other antibiotic agents
CPT/HCPCS: 36415; 80053; 80307; 83735; 84100; 85025; 96372; 99284; A0425; A0429; J1885; 99283

== ENCOUNTER 2017-07-21 14:06 | Emergency (ER) | payer MEDICAID ==
[~2017-07-21 14:06] MED LIST changes: -Acetaminophen/HYDROcodone 325-5 MG Tab ONE; +Ondansetron 4 MG Tab.DIS ONE
[2017-07-21 14:16] VITALS: BP 149/106
[2017-07-21] MEDS ORDERED: Ketorolac 60 MG/2 ML SDV IM ONE (14:43)
[2017-07-21] MEDS ORDERED: Ketorolac 60 MG/2 ML SDV ONE (14:48)
--- NOTE | 2017-07-21 16:04 | ER ---
HPI: A 27-year-old male here who comes in by ambulance. The patient had a seizure, he fell. He is complaining of some neck pain on the left side and a laceration below his chin. When the ambulance crew arrived, the patient was awake. He was not complaining of any pain at that time, other than some pain at the laceration site. At this point, he is complaining that his head hurts a little bit and some neck pain on the left side. The patient denies any other injuries. He does have history of seizures. He tells me he is on Lamictal and Keppra. He does see a neurologist in [place] and had his last seizure about 1 month ago. OBJECTIVE: GENERAL APPEARANCE: The patient is awake and alert. He is answering questions appropriately. VITAL SIGNS: Reviewed. Blood pressure 149/106, pulse 122. He is afebrile. Examining the patient's chin reveals a transverse laceration below the chin that is 4.5 cm in length. It is through the epidermis and slightly into the subcu tissue. It does gap with mild pressure applied. There is no active bleeding at this time. Examining the patient's head and neck reveals pain on the left side of his neck. I cannot reproduce any pain with palpation of the patient's skull or of the back of his head. There is no active bleeding. The skin is intact. LAB AND X-RAY: A CT of the head and neck were obtained, which were negative. DIAGNOSIS: 1. Laceration to chin. 2. Seizure with history of seizures. TREATMENT PLAN: The wound was cleansed briefly by nursing staff. I then injected 1% lidocaine with epinephrine locally for anesthesia, after which we irrigated the wound some more and then we established a sterile field and the laceration was repaired with sutures. It required 7 sutures of 4-0 Ethilon. The patient tolerated the procedure well. POST CARE INSTRUCTION: Toradol 60 mg was given in the emergency room. The patient will be started on Toradol 10 mg tablets 1 tablet t.i.d. taking his first tablet this evening at bedtime. I advised patient to use ice packs frequently to his neck pain area, and I want the patient to follow up with his primary care provider next week for a recheck. The sutures should be in for at least 10 days. He is to follow up sooner if he has any sign of infection developing. The patient's tetanus status is current. CRS/MODL /[id number]
[2017-07-21] MEDS ORDERED: Lidocaine 1% with EPINEPHrine 1:100,000 50 ML MDV ONE (16:30)
--- NOTE | 2017-07-21 18:34 | CT ---
DATE OF SERVICE: 07/21/17 CLINICAL DATA: fall - seizure UNENHANCED BRAIN CT: Multislice acquisition through the brain without IV contrast was performed. Comparison is made to a prior exam dated 03/15/17. No intracranial abnormalities. There is mucosal thickening in the ethmoid, left maxillary, and sphenoid sinuses consistent with chronic sinusitis. IMPRESSION: No acute intracranial abnormalities. [id number] [facility]
--- NOTE | 2017-07-21 18:38 | CT ---
DATE OF SERVICE: 07/21/17 CLINICAL DATA: fall - seizure CERVICAL SPINE CT: Multislice axial acquisition from the base of the skull to T2 was performed. Axial images and sagittal and coronary reformations are reviewed. There is slight reversal of the normal cervical lordosis on the sagittal reformations. This is most likely positional or due to muscle spasm. The vertebral bodies are of average height and in good alignment. No acute fracture or dislocation. No lytic or blastic bone lesions. The soft tissues are unremarkable. IMPRESSION: No acute fracture or dislocation. [id number] [facility]
== END 2017-07-21 15:15 | disposition home or self-care (01) ==
LOC: LB.ED 14:06
DX: S01.81XA Laceration without foreign body of other part of head, initial encounter (principal); R56.9 Unspecified convulsions; W19.XXXA Unspecified fall, initial encounter
CPT/HCPCS: 12013; 70450; 72125; 96372; 99284; J1885; 99283; A0425; A0429; A9270-GY

== ENCOUNTER 2017-07-21 17:07 | Emergency (ER) | payer MEDICAID ==
--- NOTE | 2017-07-27 08:43 | PCM.SN ---
- Free Text/Narrative Note: 07/21/17 Around 5 PM: Apparently I was called to evaluate Mr. Diaz. He was seen in the emergency room earlier on the day of his visit for seizures and had completely work up including Ct head which was normal.2 hrs later pt was back to emergency room to belt picker his toradol pills. He walked with his 4 year old niece and while he was talking to the nurse at the nursing station, had seizure activity. When I came with in 3-5 minutes of paging me. Pt was on the ground. I did ask him 2 question, what was his name and where he was and he answer both questions appropriately. he was alert and oriented to time place and person.He was not post-ictal. This patient has pseudoseizures and has had several visits for this to emergency room. I did reassure the nurses, as they were not aware of his situation and advised him to belt picker his meds and go home. He did walk to the waiting room and was trying to console the 4 year old niece he was okay. There was no work up necessary as he just had workup done 2 hrs ago. Also he has been evaluated by neurologist for his seizures in the past and has had normal EEG.
== END 2017-07-21 17:40 | disposition home or self-care (01) ==
LOC: LB.ED 17:07
DX: Z13.9 Encounter for screening, unspecified (principal)
CPT/HCPCS: A9270-GY

== ENCOUNTER 2017-08-26 16:41 | Emergency (ER) | payer MEDICAID ==
[2017-08-26] MEDS ORDERED: HYDROmorphone 2 MG/ML Syringe SUBCUT ONE (17:42)
[2017-08-26] MEDS ORDERED: HYDROmorphone 2 MG/ML Syringe ONE (17:46)
[2017-08-26 18:10] VITALS: BP 143/91
--- NOTE | 2017-08-27 10:20 | ER ---
HISTORY OF PRESENT ILLNESS: A 27-year-old male here with complaints of abdominal pain and nausea, that has been ongoing for about 4 days. He states the abdominal pain is getting to be sharp at times. Other times, he feels better, but it is there all the time. The patient has not been vomiting. He rates his pain currently at 7/10. He has been taking Tylenol and he took a Toradol tablets as well. He also has Zofran at home that he can use as needed. The patient denies running a fever. He denies any recent falls or injuries. OBJECTIVE: GENERAL APPEARANCE: The patient is awake and alert. He is moving around the exam table without any guarding. VITAL SIGNS: Reviewed. He is afebrile. Blood pressure 143/91. LUNGS: Clear. There is no CVA tenderness with percussion. ABDOMEN: Soft. There is tenderness without guarding involving the epigastric area. Bowel sounds are present. SKIN: Warm and dry. LAB AND X-RAY: CBC is unremarkable. CMP is also basically unremarkable. Alkaline phosphatase is 168. Abdominal CT shows a lot of bowel gas in the epigastric area and some stool retention in the descending colon as well as ascending colon. No sign of bowel obstruction. At this time, the radiologist report is still pending. DIAGNOSIS: Abdominal pain with constipation. TREATMENT PLAN: Magnesium citrate, he is to take 1 pint now and take a second pint tomorrow. He is to increase his liquid intake by 2 or 3 large glasses a day. If his symptoms are not resolved within a couple of days, he is to call his regular doctor for further evaluation and advice. CRS/MODL /[id number]
--- NOTE | 2017-08-27 12:29 | CT ---
DATE OF SERVICE: 08/26/17 CLINICAL DATA: Abd pain UNENHANCED ABDOMEN AND PELVIS CT Multislice acquisition through the abdomen and pelvis without IV or oral contrast was performed. Comparison is made to a prior exam dated 12/17/14. The lung bases are clear. There are surgical changes involving the stomach and small bowel. I do not see any definite evidence for obstruction or ileus. No dilated loops of bowel. No free air. The unenhanced liver appears normal. The patient is status post cholecystectomy. The spleen appears normal. The pancreas appears normal. The right and left adrenals appear normal. The right and left kidneys appear normal. No hydronephrosis or hydroureter. The bladder is partially fluid filled. It appears normal. No evidence of appendicitis. No adenopathy. No aortic aneurysm. IMPRESSION: No acute abnormalities. Other findings as discussed above. [id number] [facility]
== END 2017-08-26 19:10 | disposition home or self-care (01) ==
LOC: LB.ED 16:41
DX: K59.00 Constipation, unspecified (principal)
CPT/HCPCS: 36415; 74176; 80053; 82150; 83690; 85025; 96372; 99284; J1170; 99283

== ENCOUNTER 2017-10-06 12:00 | Day surgery (SDC) | payer MEDICAID ==
[~2017-10-06 12:00] MED LIST changes: +Metoclopramide 10 MG/2 ML SDV IV PRN; -Ondansetron 4 MG Tab.DIS ONE; +Sodium Chloride 0.9% 1,000 ML IV SCH; +Sodium Chloride 0.9% 10 ML Syringe FLUSH PRN
[2017-10-06] MEDS ORDERED: Propofol 200 MG/20 ML SDV ONE (13:30)
[2017-10-06 14:41] VITALS: BP 138/77
--- NOTE | 2017-10-06 17:24 | OR ---
DATE OF OPERATION: 10/06/2017 PREOPERATIVE DIAGNOSIS: Right upper quadrant abdominal pain. POSTOPERATIVE DIAGNOSIS: Normal colonoscopy. OPERATION: Colonoscopy. COMPLICATIONS: None. DRAINS: None. SPECIMENS: None. ESTIMATED BLOOD LOSS: Zero. ANESTHESIA: General propofol anesthesia. INDICATION: Mr. Diaz is a 27-year-old gentleman, who has had a previous history of gastric bypass as well as cholecystectomy and has been complaining of persistent right upper quadrant pain. He does suffer from constipation as well. The above-mentioned procedure was explained. The risks, benefits, and complications were explained. The patient understood and agreed, and he was brought to the operating room. DESCRIPTION OF PROCEDURE: The patient was brought to the operating room, placed in the left lateral decubitus position on the operating room table. Satisfactory general propofol anesthesia was administered. We began by performing a rectal examination, which was within normal limits. I then placed the endoscope by finger introduction into the rectum and subsequently advanced to the level of the cecum. The cecum was identified by the appendiceal orifice, ileocecal valve, and the cecal strap. The prep was fair and this lavage views were good. It is of note that small subtle lesions could be missed due to a fair prep involving most of the colon. Next, we carefully examined the mucosa. On withdrawal, there were no telangiectasias, no polyps, no neoplastic growths, or diverticula identified. The colon was normal. Next, retroflexion was performed in the rectum and this was within normal limits as well. The colon was decompressed and the endoscope was withdrawn. The patient tolerated the procedure well. There were no complications. Instrument count was correct. The patient was awoken in the OR and taken to the PACU for recovery. CHRIS/PALAK /[id number]
== END 2017-10-06 14:20 | disposition home or self-care (01) ==
LOC: LB.SDS 12:00
PROVIDERS: ATTEND Surgery
DX: R10.11 Right upper quadrant pain (principal); Z98.84 Bariatric surgery status; Z90.49 Acquired absence of other specified parts of digestive tract; Z88.1 Allergy status to other antibiotic agents
CPT/HCPCS: J2704; J7040

== ENCOUNTER 2017-11-01 15:08 | Emergency (ER) | payer MEDICAID ==
[2017-11-01] MEDS ORDERED: LORazepam 2 MG/ML MDV IM ONE (15:36)
[2017-11-01] MEDS ORDERED: Ondansetron 4 MG/2 ML SDV IVPUSH ONE (16:15)
--- NOTE | 2017-11-01 16:30 | EDM.PDOC ---
ED HPI GENERAL MEDICAL PROBLEM - General Chief Complaint: Neurological Problem Stated Complaint: SEIZURE Time Seen by Provider: 11/01/17 15:30 Source of Information: Reports: Patient, RN History Limitations: Reports: Other (occassional seizure like actvity) - History of Present Illness INITIAL COMMENTS - FREE TEXT/NARRATIVE: 27 yr male presents with headache and states seizure when walking to friends house. States he thinks he fell with this seizure and is brought to ER via ambulance. Pt is alert and talking when the provider entered. He was given Ativan 1.0mg IM for his seizure activity. States he takes Keppra 2x/day and did take other medications as ordered this am. States he has clonazapam at home too, but hasn't taken any. Pt lying on stretcher with cool wash cloth to forehead and talkative and reminiscing about his past health and visits to providers. Right Wrist Pain Score (Numeric/FACES): 8 - Related Data Allergies Allergy/AdvReac Type Severity Reaction Status Date / Time azithromycin Allergy Hives Verified 11/01/17 15:24 Home Meds: Home Meds Calcium Citrate/Vitamin D3 [Calcium Citrate + D] 1 each PO BID 12/10/13 [History ] Cholecalciferol (Vitamin D3) [D3-2000] 2,000 unit PO DAILY 12/10/13 [History] Cyanocobalamin (Vitamin B-12) [B-12] 500 mcg PO DAILY 12/10/13 [History] Ferrous Sulfate 324 mg PO DAILY 12/10/13 [History] Magnesium Oxide [Magnesium] 400 mg PO DAILY 12/10/13 [History] Multivitamin [Multi-Vitamin Daily] 1 each PO DAILY 12/10/13 [History] Gabapentin [Neurontin] 800 mg PO BID 01/10/15 [History] OLANZapine [Zyprexa] 20 mg PO DAILY 06/11/15 [History] lamoTRIgine [Lamictal] 200 mg PO BID 07/15/15 [History] Escitalopram Oxalate [Escitalopram Oxalate] 20 mg PO DAILY 08/26/17 [History] LORazepam [Ativan] 2 mg PO DAILY PRN 08/26/17 [History] Omeprazole [Omeprazole] 20 mg PO DAILY 08/26/17 [History] QUEtiapine [SEROquel] 400 mg DAILY 08/26/17 [History] levETIRAcetam [Levetiracetam] 1,000 mg PO DAILY 08/26/17 [History] Past Medical History Genitourinary History: Reports: Renal Calculus Musculoskeletal History: Reports: Fracture Other Musculoskeletal History: R wrist Fx 03/15/2017 Neurological History: Reports: Seizure Psychiatric History: Reports: ADHD, Anxiety, Bipolar, Panic Attack, Suicide Attempt Other Endocrine/Metabolic History: Hx of diabetes - Infectious Disease History Infectious Disease History: Reports: Chicken Pox - Past Surgical History HEENT Surgical History: Reports: Adenoidectomy, Oral Surgery, Tonsillectomy GI Surgical History: Reports: Appendectomy, Bariatric Procedure, Cholecystectomy , Hernia, Abdominal Musculoskeletal Surgical History: Reports: Other (See Below) Other Musculoskeletal Surgeries/Procedures:: Surgical fixation of R wrist Fx on 03/20/2017 Social & Family History - Family History Family Medical History: Noncontributory - Tobacco Use Smoking Status *Q: Never Smoker Years of Tobacco use: 2 Packs/Tins Daily: 0.5 Used Tobacco, but Quit: No Second Hand Smoke Exposure: No - Caffeine Use Caffeine Use: Reports: Soda Caffeine Use Comment: diet soda - Alcohol Use Days Per Week of Alcohol Use: 0 - Recreational Drug Use Recreational Drug Use: No Drug Use in Last 12 Months: No Recreational Drug Type: Reports: Other (see below) ED ROS GENERAL - Review of Systems Review Of Systems: See Below Constitutional: Reports: Weakness HEENT: Reports: No Symptoms Respiratory: Reports: No Symptoms Cardiovascular: Reports: No Symptoms GI/Abdominal: Reports: No Symptoms : Reports: No Symptoms Musculoskeletal: Reports: Other (right wrist pain) Skin: Reports: No Symptoms Neurological: Reports: Seizure Psychiatric: Reports: No Symptoms Hematologic/Lymphatic: Reports: No Symptoms - Physical Exam Exam: See Below Exam Limited By: Other (occasional seizure like activity.) General Appearance: Alert, Mild Distress Ears: Hearing Grossly Normal Nose: Normal Inspection Throat/Mouth: No Airway Compromise Head Exam: Atraumatic Neck: Normal Inspection, Supple, Non-Tender Respiratory/Chest: No Respiratory Distress, Lungs Clear, Normal Breath Sounds Cardiovascular: Normal Peripheral Pulses, Regular Rate, Rhythm, No Edema GI/Abdominal: Normal Bowel Sounds, Soft, Non-Tender Neuro Exam (Abbreviated): Alert, Oriented, Normal Cognition Back Exam: Normal Inspection, Full Range of Motion Extremities: Normal Inspection, Normal Range of Motion Psychiatric: Normal Affect, Normal Mood Skin Exam: Warm, Dry, Normal Color Course - Vital Signs Last Recorded V/S: Last Vital Signs Temp 98.9 F 11/01/17 17:10 Pulse 68 11/01/17 17:10 Resp 20 11/01/17 17:10 BP 112/68 11/01/17 17:10 Pulse Ox 97 11/01/17 17:10 - Orders/Labs/Meds Orders: Active Orders 24 hr Category Date Time Status KEPPRA [REF] Stat Lab 11/01/17 16:30 Received PROLACTIN [REF] Stat Lab 11/01/17 16:30 Received Sodium Chloride 0.9% [Saline Flush] Med 11/01/17 17:05 Active 10 ml FLUSH ASDIRECTED PRN Peripheral IV Insertion Adult [OM.PC] Routine Oth 11/01/17 17:05 Ordered Medication Orders Sodium Chloride (Saline Flush) 10 ml FLUSH ASDIRECTED PRN PRN Reason: Keep Vein Open Labs: Laboratory Tests 11/01/17 11/01/17 Range/Units 16:20 16:20 WBC 7.4 (4.0-11.0) K/uL RBC 4.42 L (4.50-6.50) M/uL Hgb 13.3 (13.0-18.0) g/dL Hct 39.3 L (40.0-54.0) % MCV 89 (76-96) fL MCH 30.1 (27.0-32.0) pg MCHC 33.8 (31.0-35.0) g/dL RDW 11.9 (11.0-16.0) % Plt Count 239 (150-400) K/uL MPV 10.3 H (6.0-10.0) fL Neut % (Auto) 67.6 (45.0-70.0) % Lymph % (Auto) 20.5 (20.0-40.0) % [place] % (Auto) 10.1 H (3.0-10.0) % Eos % (Auto) 1.5 (1.0-5.0) % Baso % (Auto) 0.3 (0.0-0.5) % Neut # (Auto) 5.01 (2.00-7.50) K/uL Lymph # (Auto) 1.52 (1.50-4.00) K/uL [place] # (Auto) 0.75 (0.20-0.80) K/uL Eos # (Auto) 0.11 (0.04-0.40) K/uL Baso # (Auto) 0.02 (0.02-0.10) K/uL Sodium 139 (136-145) mmol/L Potassium 5.0 D (3.5-5.1) mmol/L Chloride 105 (98-107) mmol/L Carbon Dioxide 20.1 L D (21.0-32.0) mmol/L Anion Gap 18.9 H (5.0-15.0) mmol/L BUN 19 D (8-26) mg/dL Creatinine 1.28 (0.70-1.30) mg/dL Est Cr Clr Drug Dosing TNP Estimated GFR (MDRD) > 60 (>60) MLS/MIN BUN/Creatinine Ratio 14.8 (6-25) Glucose 103 H (74-100) mg/dL Calcium 8.9 (8.5-10.1) mg/dL Total Bilirubin 0.2 D (0.0-1.0) mg/dL AST 17 (15-37) U/L ALT 21 (12-78) U/L Alkaline Phosphatase 95 (46-116) U/L Total Protein 6.8 (6.4-8.2) g/dL Albumin 3.8 (3.4-5.0) g/dL Globulin 3.0 (2.2-4.2) g/dL Albumin/Globulin Ratio 1.3 (0.8-2.0) Meds: Medications Generic Name Dose Route Start Last Admin Trade Name Freq PRN Reason Stop Dose Admin Sodium Chloride 10 ml 11/01/17 17:05 Saline Flush FLUSH ASDIRECTED PRN Keep Vein Open Discontinued Medications Generic Name Dose Route Start Last Admin Trade Name Freq PRN Reason Stop Dose Admin Lorazepam 1 mg 11/01/17 15:36 11/01/17 16:23 Ativan IM 11/01/17 15:37 1 mg ONETIME ONE Administration Ondansetron HCl 4 mg 11/01/17 16:15 11/01/17 16:15 Zofran IVPUSH 11/01/17 16:16 4 mg ONETIME ONE Administration - Re-Assessments/Exams Free Text/Narrative Re-Assessment/Exam: 11/01/17 18:49 LE pt improved after ativan. He stated some nausea and Zofran 4 mg IV given with good response. States headache persists, but wants to go home and take Tylenol for this, now that his nausea is better. Pt did ambulate to bathroom and states BM during visit. Pt was monitored and IV started and improved with Ativan and Zofran. Seizure activity stopped and pt lying on stretcher and talking with his mother. She presented to ER after his seizures ceased. States wrist pain and old injury to this wrist. Good ROM to this wrist. Wrap with obdulio wrap during ER visit. Monitor for increase in pain or swelling. RTC is pain persists to wrist. Recommend pt to contact neurologist and notify of seizure activity today and recommend close follow-up. Reviewed lab results and Keppra level and Prolactin level drawn and pending. Will notify pt of results when these are completed, unable to perform locally and will be sent out tomorrow. Pt states comfortable now with some headache. Discharge to care of family. RTC or ER if seizure activity returns. Take medication at home as prescribed. Recommend to rest and hydration at home with use of Tylenol for headache. Continue with obdulio wrap for right wrist pain and if pain continues follow-up with PCP. Departure - Departure Time of Disposition: 17:50 Disposition: Home, Self-Care 01 Condition: Good Clinical Impression: Seizure-like activity - Discharge Information Instructions: Elastic Bandage and RICE, Seizure, Adult, [id number] Referrals: Ronnie Hernandez MD [Primary Care Provider] - Forms: ED Department Discharge Additional Instructions: Follow up with your neurologist as soon as you can. Continue taking all of your regular home meds. The Keppra and Prolactin level will not be back until Monday the earliest. Drink plenty of fluids. Follow up at the clinic in a couple days in your wrist isn't better. Ice and elevate wrist. - My Orders Last 24 Hours: My Active Orders 11/01/17 16:30 KEPPRA [REF] Stat PROLACTIN [REF] Stat 11/01/17 17:05 Sodium Chloride 0.9% [Saline Flush] 10 ml FLUSH ASDIRECTED PRN Peripheral IV Insertion Adult [OM.PC] Routine - Assessment/Plan Last 24 Hours: My Active Orders 11/01/17 16:30 KEPPRA [REF] Stat PROLACTIN [REF] Stat 11/01/17 17:05 Sodium Chloride 0.9% [Saline Flush] 10 ml FLUSH ASDIRECTED PRN Peripheral IV Insertion Adult [OM.PC] Routine
[2017-11-01] MEDS ORDERED: Sodium Chloride 0.9% 10 ML Syringe FLUSH PRN (17:05)
[2017-11-01 17:11] VITALS: BP 112/68
== END 2017-11-01 18:10 | disposition home or self-care (01) ==
LOC: LB.ED 15:08
DX: R56.9 Unspecified convulsions (principal); M25.531 Pain in right wrist; R51 Headache; E11.9 Type 2 diabetes mellitus without complications; F31.9 Bipolar disorder, unspecified; Z88.1 Allergy status to other antibiotic agents; Z79.899 Other long term (current) drug therapy; Z72.0 Tobacco use
CPT/HCPCS: 36415; 80053; 80177; 84146; 85025; 96372; 96374; 99284; 99285; A0425; A0429; J2060; J2405

== ENCOUNTER 2017-12-03 15:30 | Emergency (ER) | payer MEDICAID ==
[2017-12-03 15:51] VITALS: BP 156/95
--- NOTE | 2017-12-03 18:45 | CR ---
DATE OF SERVICE: 12/03/2017 CLINICAL DATA: Injury - fell. RIGHT HAND: Comparison is made to a prior exam dated 03/15/2017. There is a healed fracture through the distal radius with internal fixation. I see no acute fracture of dislocation. No focal lytic or blastic bone lesions. [id number] [facility]
--- NOTE | 2017-12-03 23:40 | ER ---
HISTORY OF PRESENT ILLNESS: A 27-year-old male here with complaints of injuring his right wrist when he fell yesterday on the ice. He is concerned because he had a surgery on the wrist due to a fracture about a year ago, and he is hoping that nothing broke apart. The patient denies any other injuries. He states his hand feels kind of tight from swelling. There was no bleeding. OBJECTIVE: GENERAL APPEARANCE: The patient is awake and alert. No obvious distress. Examining the right hand and wrist reveals mild swelling over the dorsal aspect of the hand radiating back to the wrist. He does have a well-healed scar on the palmar side of the distal forearm from the previous surgery. The patient has about 50% flexion and extension capability of the wrist at this time. Capillary refill is good involving the fingers on the injured hand. LABORATORY AND X-RAY DATA: X-ray of the hand and wrist was obtained. I do not see any fracture or acute bony abnormality. DIAGNOSIS: Contusion injury to right wrist. TREATMENT PLAN: A wrist brace will be given to the patient. He is to wear this for a few days, longer if needed. [id number] medications as needed. He is to use ice fairly frequently for a day or two and followup should be in a week or so if his symptoms are not resolving. DEMETRIO/PALAK /[id number]
== END 2017-12-03 16:40 | disposition home or self-care (01) ==
LOC: LB.ED 15:30
DX: S60.211A Contusion of right wrist, initial encounter (principal); W19.XXXA Unspecified fall, initial encounter
CPT/HCPCS: 73130-RT; 99283

== ENCOUNTER 2017-12-13 18:46 | Emergency (ER) | payer MEDICAID ==
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
[2017-12-13 19:51] VITALS: BP 147/95
--- NOTE | 2017-12-14 03:58 | CT ---
UNENHANCED BRAIN CT,12/13/17 Multislice acquisition through the brain without IV contrast was performed. No priors No masses or mass effect. No intracranial hemorrhage. No evidence of acute or subacute infarct. No fractures. IMPRESSION: No acute intracranial abnormalities. [id number] [facility]
--- NOTE | 2017-12-14 04:03 | CT ---
CERVICAL SPINE CT, 12/13/17 Multislice axial acquisition was performed. The vertebral bodies are of average height and in good alignment. No acute fracture or dislocation. No lytic or blastic lesions. The soft tissues are unremarkable. The lung apices are clear. IMPRESSION: No acute abnormalities. [id number] [facility]
== END 2017-12-13 19:58 | disposition home or self-care (01) ==
LOC: LB.ED 18:46
DX: S09.90XA Unspecified injury of head, initial encounter (principal); Z88.1 Allergy status to other antibiotic agents; Z79.899 Other long term (current) drug therapy; W18.00XA Striking against unspecified object with subsequent fall, initial encounter; Y92.000 Kitchen of unspecified non-institutional (private) residence as the place of occurrence of the external cause
CPT/HCPCS: 36415; 70450; 72125; 80053; 80307; 85025; 99285-25; A0425; A0429

== ENCOUNTER 2017-12-29 17:27 | Emergency (ER) | payer MEDICAID ==
[2017-12-29] MEDS: LORazepam 2 MG/ML SDV IM ONE (18:01)
[2017-12-29 18:18] VITALS: BP 134/74
[2017-12-29] MEDS ORDERED: LORazepam 0.5 MG Tab ONE ×2 (18:30→18:44)
[2017-12-29] MEDS ORDERED: Triamcinolone Acetonide 40 MG/ML 1 ML MDV ONE ×2 (18:37→18:40)
[2017-12-29] MEDS ORDERED: Lidocaine 1% PF 2 ML SDV ONE (18:40)
[2017-12-29] MEDS ORDERED: LORazepam 2 MG/ML SDV ONE (18:40)
== END 2017-12-29 19:15 | disposition home or self-care (01) ==
LOC: LB.ED 17:27
DX: M70.62 Trochanteric bursitis, left hip (principal); R56.9 Unspecified convulsions; Z88.1 Allergy status to other antibiotic agents; Z79.899 Other long term (current) drug therapy
CPT/HCPCS: 20610; 36415; 80053; 81001; 85025; 99284; A0425; A0429; A9270; J2060; J3301

== ENCOUNTER 2018-02-02 11:00 | Emergency (ER) | payer MEDICAID ==
[2018-02-02] MEDS ORDERED: Fosphenytoin 1,500 MG.PE in Sodium Chloride 0.9% 50 ML IV ONE (11:01)
[2018-02-02] MEDS ORDERED: LORazepam 2 MG/ML SDV IVPUSH ONE (11:26)
[2018-02-02] MEDS ORDERED: Ondansetron 4 MG/2 ML SDV IVPUSH ONE (11:40)
[2018-02-02] MEDS: Sodium Chloride 0.9% 1,000 ML IV ONE ×2 (11:42→12:52)
[2018-02-02] MEDS: Fosphenytoin 1,500 MG.PE in Sodium Chloride 0.9% 50 ML IV ONE ×2 (11:47→12:20)
[2018-02-02] MEDS ORDERED: FOSPHENYTOIN IV ONE ×2 (12:15→12:20)
[2018-02-02] MEDS ORDERED: SODIUM CHLORIDE IV ONE ×2 (12:15→12:20)
[2018-02-02] MEDS ORDERED: [UNRECOGNIZED DRUG - OTHER] IV ONE ×2 (12:15→12:20)
--- NOTE | 2018-02-02 20:39 | ER ---
DATE OF SERVICE: 02/02/2018 HPI: A 28-year-old male who was brought in by ambulance because of the seizure. He tells me he was at work. He works at a [employer] and that is where he had the seizure today. He tells me that the reason he is having a seizure is because he has been out of his medications for four days. He takes Lamictal and gabapentin and he has ran out four days ago. He has been trying to get it, but the pharmacy has not had it available. He tells me he just purchased the gabapentin yesterday. The patient has longstanding history of seizures. He tells me that he feels nauseated today and lightheaded. He is unsure how long this initial seizure lasted and ambulance crew states he has not been seizing sent in or out. The patient states that he fell against some equipment with his left shoulder. It hurts a little bit, but nothing significant. He denies any other areas of pain. OBJECTIVE: GENERAL APPEARANCE: The patient is awake, he is talkative. He appears slightly tense. VITAL SIGNS: Reviewed as listed. They are normal. LUNGS: Clear. CARDIAC: Heart sounds distinct without murmurs. There is no obvious head or neck injury. INTIAL TREATMENT PLAN: Ativan 2 mg was given IV. Upon 5 minutes later, the patient went into a seizure that lasted for about one minute after which he regained consciousness. He was given Valium 5 mg IV at this point; 10 minutes later, we gave him another 5 mg; and 15 minutes later, we gave him 10 mg. At that point, he went into a smaller seizure that only lasted for about 10 seconds. The patient was also given Zofran 4 mg IV which did stop his nauseated feelings. DIAGNOSIS: Acute Seizure with history of the same. TREATMENT PLAN: The next step, fosphenytoin was given in bolus form followed by a maintenance dose. Just after the bolus of fosphenytoin, the patient obviously relaxed. He had no more tremors or seizure activity and he went to sleep quietly. He slept for about an hour after which he woke up and states that he feels much better. The patient feels just slightly tired, but he states he feels much better than he did before. At this point, he was assisted to a sitting position than standing. He took a few steps at the bedside and did this well without any increase of lightheadedness or dizziness. TREATMENT PLAN: The patient will be discharged at this point to home with a transporter driver. He was given one dose of Lamictal 200 mg here in the ER and a script has been filled for him today that he can take at home, so he can stay on it. He is also to take his gabapentin as directed. The patient is to rest the remaining part of the day with someone else available to monitor him and follow up should be as needed over the next day or two if he has any further seizure activity. An if he does well, which I think he will. A recheck should be with his primary care provider early next week. DEMETRIO/PALAK /[id number] MTDJulian
== END 2018-02-02 14:10 | disposition home or self-care (01) ==
LOC: LB.ED 11:00
DX: G40.909 Epilepsy, unspecified, not intractable, without status epilepticus (principal); Z79.899 Other long term (current) drug therapy; Y99.0 Civilian activity done for income or pay
CPT/HCPCS: 96374; 96375; 99284-25; A0425; A0429; A9270-GY; J2060; J2405; J3360; J7040; J7050; Q2009

== ENCOUNTER 2018-02-24 18:14 | Emergency (ER) | payer MEDICAID ==
[2018-02-24] MEDS: LORazepam 0.5 MG Tab PO ONE (19:05)
[2018-02-24] MEDS: Sodium Chloride 0.9% 10 ML Syringe FLUSH PRN (21:00)
[2018-02-24] MEDS: Sodium Chloride 0.9% 1,000 ML IV ONE (21:05)
[2018-02-24 21:14] VITALS: BP 129/88
--- NOTE | 2018-02-27 10:23 | ER ---
The patient is a 28-year-old male, who presents to the emergency room with a chief complaint of suicidal thoughts. The patient notes he feels like he is going to commit suicide. He does not have a specific plan, but did note that he would probably step out in front of an oncoming car. The patient notes he has been getting worse over the last 3 or 4 days. He tried calling his psychiatrist's office, Dr. Nix, but did not end up talking to a nurse. He notes this just been escalating over the last several days. He has been getting more anxious. He has lost recent employment due to his history of seizures. 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 The patient is currently on as noted multiple medications. ALLERGIES: HE IS ALLERGIC TO AZITHROMYCIN. MEDICATIONS: He is on are Keppra 1000 mg p.o. b.i.d., Lamictal 300 mg p.o. b.i.d., Wellbutrin 100 mg p.o. b.i.d., Seroquel 400 mg at bedtime, omeprazole 20 mg p.o. daily, multivitamin, magnesium oxide 400 mg p.o. daily, Neurontin 800 mg p.o. b.i.d., ferrous sulfate 324 p.o. daily, vitamin B12 at 500 mcg daily, vitamin D3 at 2000 units daily, and calcium citrate with vitamin D3. PAST MEDICAL HISTORY: Significant for distal radius fracture, seizure activity, or pseudoseizures. He has had problems with abdominal pain and constipation and has had a trochanteric bursitis. PHYSICAL EXAMINATION: GENERAL: He is alert, tearful, agitated, and extremely upset. Otherwise physical exam is pretty much unremarkable. HEENT: TMs are normal. Nares are clear. Throat is normal. NECK: Supple. No nodes. No bruits. LUNGS: Clear. HEART: Regular sinus rhythm without murmur. The patient's pulse rate was initially listed at 200, however, when I checked it, it was 100. That initial measurement came off the pulse oximeter and so is likely inaccurate. EXTREMITIES: No clubbing, cyanosis, or edema. NEUROLOGIC: Nonfocal. LABS: We have a TSH, CBC, basic metabolic panel, UA, and urine drug screen pending. ASSESSMENT: Suicidal ideation. PLAN: The patient feels he needs help. He is willing to go for an inpatient admission voluntarily because he feels he is going to injure himself if he does not get help. He has had a suicidal attempt in the past. He has a history of depression. I think the patient needs an inpatient admission. I had contacted [facility] and they do have a bed, but we are waiting on the labs and for them to review this note. DENITA/PALAK /[id number]
== END 2018-02-24 23:10 ==
LOC: EEVIPCON 18:14 → LB.ED 18:14
DX: R45.851 Suicidal ideations (principal)
CPT/HCPCS: 36415; 80048; 80307; 81001; 84443; 85025; 96360; 99285-25; A0425; A0429; A9270-GY; G0480; J7030; J7050

== ENCOUNTER 2018-11-09 22:29 | Emergency (ER) | payer MEDICAID ==
--- NOTE | 2018-11-09 22:44 | EDM.PDOC ---
ED HPI GENERAL MEDICAL PROBLEM - General Chief Complaint: General Stated Complaint: overdose Time Seen by Provider: 11/09/18 22:30 Source of Information: Reports: Patient History Limitations: Reports: No Limitations - History of Present Illness INITIAL COMMENTS - FREE TEXT/NARRATIVE: EMS was called by patient's step dad as patient was not responding. He was brought in to emergency room . Pt is arousable, but goes back to sleep. His vitals have been stable. Apparently patient was discharged from [facility] on 11/06/18. Not sure why he was admitted. Apparently he has all his medication bottle, but his Ativan bottle is empty he just had it refilled today , and the prescriber was Dr.Timothy Hedrick. Pt just open his eyes to verbal command and does answer questions only when he wants too. - Related Data Allergies Allergy/AdvReac Type Severity Reaction Status Date / Time azithromycin Allergy Hives Verified 02/24/18 19:35 Home Meds: Home Meds Calcium Citrate/Vitamin D3 [Calcium Citrate + D] 1 each PO BID 12/10/13 [History ] Cholecalciferol (Vitamin D3) [D3-2000] 2,000 unit PO DAILY 12/10/13 [History] Cyanocobalamin (Vitamin B-12) [B-12] 500 mcg PO DAILY 12/10/13 [History] Ferrous Sulfate 324 mg PO DAILY 12/10/13 [History] Magnesium Oxide [Magnesium] 400 mg PO DAILY 12/10/13 [History] Multivitamin [Multi-Vitamin Daily] 1 each PO DAILY 12/10/13 [History] Gabapentin [Neurontin] 800 mg PO BID 01/10/15 [History] lamoTRIgine [Lamictal] 300 mg PO BID 07/15/15 [History] Omeprazole 20 mg PO DAILY 08/26/17 [History] QUEtiapine [SEROquel] 400 mg PO BEDTIME 08/26/17 [History] levETIRAcetam [Levetiracetam] 1,000 mg PO BID 08/26/17 [History] buPROPion [Wellbutrin SR] 100 mg PO BID 12/29/17 [History] Amitriptyline [Elavil] 20 mg PO BEDTIME 02/24/18 [History] Amphetamine/Dextroamphetamine [Adderall XR] 40 mg PO DAILY 02/24/18 [History] Escitalopram Oxalate 20 mg PO DAILY 02/24/18 [History] clonazePAM [Clonazepam] 1 mg PO BID PRN 02/24/18 [History] Past Medical History Genitourinary History: Reports: Renal Calculus Musculoskeletal History: Reports: Fracture Other Musculoskeletal History: R wrist Fx 03/15/2017 Neurological History: Reports: Concussion, Head Trauma, Seizure Psychiatric History: Reports: ADHD, Anxiety, Bipolar, Depression, Panic Attack, Suicide Attempt Endocrine/Metabolic History: Reports: Diabetes, Type II Other Endocrine/Metabolic History: Hx of diabetes, glucose good now that has lost 190#. - Infectious Disease History Infectious Disease History: Reports: Chicken Pox - Past Surgical History HEENT Surgical History: Reports: Adenoidectomy, Oral Surgery, Tonsillectomy GI Surgical History: Reports: Appendectomy, Bariatric Procedure, Cholecystectomy , Hernia, Abdominal Musculoskeletal Surgical History: Reports: Other (See Below) Other Musculoskeletal Surgeries/Procedures:: Surgical fixation of R wrist Fx on 03/20/2017 Social & Family History - Family History Family Medical History: Noncontributory - Caffeine Use Caffeine Use: Reports: None Caffeine Use Comment: diet soda ED ROS GENERAL - Review of Systems Review Of Systems: Unable To Obtain (Due to patient condition, he is arousable to verbal command and pain but does not answer questions appropriately.) ED EXAM, GENERAL - Physical Exam Exam: See Below Exam Limited By: Other (sleeping) General Appearance: Alert, WD/WN, No Apparent Distress Eye Exam: Bilateral Eye: EOMI, PERRL Ears: Normal External Exam, Normal Canal, Hearing Grossly Normal, Normal TMs Ear Exam: Bilateral Ear: Auricle Normal, Canal Normal, TM normal Nose: Normal Inspection, Normal Mucosa, No Blood Throat/Mouth: Normal Inspection, Normal Lips, Normal Teeth, Normal Gums, Normal Oropharynx, Normal Voice, No Airway Compromise Head: Atraumatic, Normocephalic Neck: Normal Inspection, Supple, Non-Tender, Full Range of Motion Respiratory/Chest: No Respiratory Distress, Lungs Clear, Normal Breath Sounds, No Accessory Muscle Use, Chest Non-Tender Cardiovascular: Normal Peripheral Pulses, Regular Rate, Rhythm, No Edema, No Gallop, No JVD, No Murmur, No Rub Extremities: Normal Inspection, Normal Range of Motion, Non-Tender, Normal Capillary Refill, No Pedal Edema Neurological: Alert, CN II-XII Intact, Normal Gait, Normal Reflexes, No Motor/ Sensory Deficits, Other (arousable but sleepy) EKG INTERPRETATION EKG Date: 11/09/18 Rhythm: NSR Rate (Beats/Min): 107 [place]: Normal P-Wave: Present QRS: Normal ST-T: Normal QT: Normal Course - Vital Signs Text/Narrative:: Apparently pt is arousable but sleeping. He does take zyprexa, seroquel., lamictal and hydroxyzine, gabapentin and now has been on ativan , all of them have additive sedative effect. His vitals are stable. He did receive 0.5mg of flumezinil in the emergency room and he has been sleeping comfortably he has not woke up as expected with benzo over dose. It does not appear like he has overdosed on benzo. His urine drug screen dose show benzo as he might have taken it to night routinely. There is concern about the history given by his step father to the EMS that his ativan bottle is empty, as his step father dose have history of drug abuse. His vitals are stable.CBC and CMP are normal. EKG is in sinus tachycardia rate of 107. Pt probably is sleeping with all the night medications.Plan is to admit patient to hospital and monitor him over night and reevaluate patient in the morning. - Orders/Labs/Meds Orders: Active Orders 24 hr Category Date Time Status EKG Documentation Completion [RC] ASDIRECTED Care 11/09/18 22:35 Ordered CBC WITH AUTO DIFF [HEME] Stat Lab 11/09/18 22:33 Ordered COMPREHENSIVE METABOLIC PN,CMP [CHEM] Stat Lab 11/09/18 22:33 Ordered DRUG SCREEN, URINE [URCHEM] Stat Lab 11/09/18 22:37 Ordered EKG 12 Lead [EK] Routine Ther 11/09/18 22:34 Ordered Departure - Departure Time of Disposition: 23:15 Disposition: Refer to Observation Condition: Good Clinical Impression: Drug overdose - Discharge Information *PRESCRIPTION DRUG MONITORING PROGRAM REVIEWED*: Not Applicable *COPY OF PRESCRIPTION DRUG MONITORING REPORT IN PATIENT HEMAL: Not Applicable - Problem List & Annotations (1) Drug overdose SNOMED Code(s): 14858283 Code(s): T50.901A - POISONING BY UNSP DRUG/MEDS/BIOL SUBST, ACCIDENTAL, INIT Status: Acute Current Visit: Yes - Problem List Review Problem List Initiated/Reviewed/Updated: Yes - My Orders Last 24 Hours: My Active Orders 11/09/18 22:33 CBC WITH AUTO DIFF [HEME] Stat COMPREHENSIVE METABOLIC PN,CMP [CHEM] Stat 11/09/18 22:34 EKG 12 Lead [EK] Routine 11/09/18 22:35 EKG Documentation Completion [RC] ASDIRECTED 11/09/18 22:37 DRUG SCREEN, URINE [URCHEM] Stat - Assessment/Plan Last 24 Hours: My Active Orders 11/09/18 22:33 CBC WITH AUTO DIFF [HEME] Stat COMPREHENSIVE METABOLIC PN,CMP [CHEM] Stat 11/09/18 22:34 EKG 12 Lead [EK] Routine 11/09/18 22:35 EKG Documentation Completion [RC] ASDIRECTED 11/09/18 22:37 DRUG SCREEN, URINE [URCHEM] Stat Assessment:: Possible drug overdose Plan: Apparently pt is arousable but sleeping. He does take zyprexa, seroquel., lamictal and hydroxyzine, gabapentin and now has been on ativan , all of them have additive sedative effect. His vitals are stable. He did receive 0.5mg of flumezinil in the emergency room and he has been sleeping comfortably he has not woke up as expected with benzo over dose. It does not appear like he has overdosed on benzo. His urine drug screen dose show benzo as he might have taken it to night routinely. There is concern about the history given by his step father to the EMS that his ativan bottle is empty, as his step father dose have history of drug abuse. His vitals are stable.CBC and CMP are normal. Plan is to admit patient to hospital and monitor him over night and reevaluate patient in the morning.
[2018-11-09] MEDS ORDERED: Flumazenil 0.1 MG/ML 5 ML MDV IVPUSH STA (22:55)
[2018-11-09] MEDS ORDERED: Flumazenil 0.1 MG/ML 5 ML MDV ONE (23:03)
[2018-11-10] MEDS ORDERED: Acetaminophen 500 MG Tab PO PRN ×2 (11:29→21:34)
[2018-11-10] MEDS ORDERED: levETIRAcetam 500 MG Tab PO ONE (13:30)
[2018-11-10] MEDS ORDERED: LAMOTRIGINE 200 MG PO ONE (13:30)
[2018-11-10] MEDS ORDERED: LORazepam 2 MG/ML SDV IM ONE (15:00)
[2018-11-10] MEDS ORDERED: Haloperidol Lactate 5 MG/ML SDV IM ONE (15:00)
--- NOTE | 2018-11-10 15:00 | PCM.DCSUM1 ---
Discharge Summary - Hospital Course Free Text/Narrative:: Pt was admitted to [facility] for observation, considering the history given by step dad. Pt did not appear to be in drug over dose. Pt did sleep well through the night. He did wake up in the morning as usual today. Pt has been very agitated and has been trying to get out of his bed and room frequently and wandering around the walkways of the floor and has been trying to get into other patient rooms. He does get agitated for every little thing. He feels suspicious and paranoid. He does call out name of his family members as if they are in the room with him.He does disrobe his gown and wander around naked. This behavior have progressively got worse over the day. Hence family was called several times to discuss patient. Finally when his stepdad called. Stepdad claimed that he had called the ambulance yesterday, as he could not take care of patient any more at home and does not want anything to do with him. Also [facility] at [facility] [place] and [facility] the [facility], due to his behavior issue. He was discharged on 11/06/17 and patient took Bus back home instead of going back to [facility]. Considering patient's psychotic Behavior, I did called Dr. Cottrell, psychiatrist from [place] and had Tele-psych evaluation done today. Dr. Cottrell's recommendation is that patient should be in inpatient psych facility, he is not stable to be home the medications. I did contact [facility] for admission, but they don't have beds available. Have tried several inpatient psych facility with no available accepting beds. Pt remained agitated , after consulting Dr. Cottrell pt did receive Haldol 5mg IM with Ativan 2mg IM, presently patient is sleeping. [facility] Psych facility did accept patient. Pt will be transferred by S. Pt is hemodynamically stable for transfer and inpatient psych admission. Further care per [facility] providers. Pt was all planned for discharge and [facility] facility called at 7:30 PM claiming that patient does not meet admission criteria. If a patient who is acutely psychotic( with Hallucination, delusional taught, wandering naked in the hallways, maniac at times does not qualify, I do not understand what qualifies for inpatient care). Pt is presently sedated from haldol. Will place patient on haldol 5mg Im every 8 hrs for agitation, will continue home meds and continue to call psych facilities for placement. Brief History: Pt was brought in by EMS with concerns of drug overdose. Pt on exam in the emergency room, appeared to be sleeping. He was arousable. His CBC, BMP were normal. His urine drug screen showed postive benzo. Pt wasadmitted for observation over night. Kindly see H&P for details. Diagnosis: Stroke: No - Discharge Data Discharge Date: 11/10/18 Discharge Disposition: DC/Tfer to Psych Hosp/[address] Condition: Fair - Discharge Diagnosis/Problem(s) (1) Drug overdose SNOMED Code(s): 20453556 ICD Code: T50.901A - POISONING BY UNSP DRUG/MEDS/BIOL SUBST, ACCIDENTAL, INIT Status: Acute Current Visit: Yes (2) Schizophrenia spectrum disorder with psychotic disorder type not yet determined SNOMED Code(s): 32893903 ICD Code: F29 - UNSP PSYCHOSIS NOT DUE TO A SUBSTANCE OR KNOWN PHYSIOL COND Status: Acute Current Visit: Yes - Patient Instructions Diet: Usual Diet as Tolerated Fluid Restriction: 1500 mL Activity: As Tolerated - Discharge Plan *PRESCRIPTION DRUG MONITORING PROGRAM REVIEWED*: Not Applicable *COPY OF PRESCRIPTION DRUG MONITORING REPORT IN PATIENT HEMAL: Not Applicable Home Medications: Home Meds Calcium Citrate/Vitamin D3 [Calcium Citrate + D] 1 each PO BID 12/10/13 [History ] Cholecalciferol (Vitamin D3) [D3-2000] 2,000 unit PO DAILY 12/10/13 [History] Cyanocobalamin (Vitamin B-12) [B-12] 1,000 mcg PO DAILY 12/10/13 [History] Magnesium Oxide [Magnesium] 400 mg PO DAILY 12/10/13 [History] Gabapentin [Neurontin] 800 mg PO TID 01/10/15 [History] lamoTRIgine [Lamictal] 200 mg PO BID 07/15/15 [History] levETIRAcetam [Levetiracetam] 1,000 mg PO BID 08/26/17 [History] Acetaminophen 1,000 mg PO QID PRN 11/10/18 [History] Benztropine [Cogentin] 0.5 mg PO BID PRN 11/10/18 [History] Ferrous Sulfate [Ferosul] 325 mg PO DAILY 11/10/18 [History] [place] Carbonate [Eskalith CR] 450 mg PO Q12H 11/10/18 [History] Nicotine Polacrilex [Nicotine Gum] 2 mg BC Q1H PRN 11/10/18 [History] OLANZapine [Zyprexa] 15 mg PO BEDTIME 11/10/18 [History] QUEtiapine [SEROquel] 50 mg PO TID PRN 11/10/18 [History] hydrOXYzine HCl [Atarax] 50 mg PO Q6H PRN 11/10/18 [History] Forms: ED Department Discharge - Discharge Summary/Plan Comment DC Time >30 min.: Yes - General Info Date of Service: 11/10/18 Functional Status: Reports: Tolerating Diet, Ambulating, Urinating - Review of Systems General: Denies: Fever, Weakness HEENT: Denies: Sinus Congestion, Rhinitis, Visual Changes Pulmonary: Denies: Shortness of Breath, Cough, Sputum, Hemoptysis Cardiovascular: Denies: Chest Pain, Lightheadedness Gastrointestinal: Denies: Abdominal Pain, Nausea, Vomiting Genitourinary: Denies: Frequency, Burning Musculoskeletal: Denies: Joint Pain, Joint Swelling Skin: Denies: Bruising, Pruritis, Rash Neurological: Denies: Confusion, Dizziness, Headache, Numbness, Tingling Psychiatric: Reports: Mood Lability, Agitation, Hallucinations, Other ( wandering and disrobbing). Denies: Depression, Cravings, Suicidal Ideation, Homicidal Ideation - Patient Data Vitals - Most Recent: Last Vital Signs Temp 98.2 F 11/10/18 03:19 Pulse 108 H 11/10/18 08:35 Resp 20 11/10/18 08:35 BP 144/95 H 11/10/18 08:35 Pulse Ox 99 11/10/18 08:35 I&O - Last 24 hours: Intake & Output 11/09/18 11/10/18 11/10/18 22:59 06:59 14:59 Output Total 4350 Balance -4350 Lab Results - Last 24 hrs: Laboratory Results - last 24 hr 11/09/18 11/09/18 11/09/18 Range/Units 22:40 22:40 22:40 WBC 8.9 D (4.0-11.0) K/uL RBC 3.44 L (4.50-6.50) M/uL Hgb 10.8 L D (13.0-18.0) g/dL Hct 32.3 L D (40.0-54.0) % MCV 94 (76-96) fL MCH 31.4 (27.0-32.0) pg MCHC 33.4 (31.0-35.0) g/dL RDW 12.7 (11.0-16.0) % Plt Count 179 D (150-400) K/uL MPV 10.9 H (6.0-10.0) fL Neut % (Auto) 60.5 (45.0-70.0) % Lymph % (Auto) 28.2 (20.0-40.0) % [place] % (Auto) 9.6 (3.0-10.0) % Eos % (Auto) 1.4 (1.0-5.0) % Baso % (Auto) 0.3 (0.0-0.5) % Neut # (Auto) 5.35 (2.00-7.50) K/uL Lymph # (Auto) 2.50 (1.50-4.00) K/uL [place] # (Auto) 0.85 H (0.20-0.80) K/uL Eos # (Auto) 0.12 (0.04-0.40) K/uL Baso # (Auto) 0.03 (0.02-0.10) K/uL Sodium 143 (136-145) mmol/L Potassium 3.4 L D (3.5-5.1) mmol/L Chloride 108 H (98-107) mmol/L Carbon Dioxide 23.9 (21.0-32.0) mmol/L Anion Gap 14.5 (5.0-15.0) mmol/L BUN 19 D (8-26) mg/dL Creatinine 0.93 (0.70-1.30) mg/dL Est Cr Clr Drug Dosing TNP Estimated GFR (MDRD) > 60 (>60) MLS/MIN BUN/Creatinine Ratio 20.4 (6-25) Glucose 138 H D (74-100) mg/dL Calcium 8.1 L (8.5-10.1) mg/dL Total Bilirubin 0.2 (0.0-1.0) mg/dL AST 11 L (15-37) U/L ALT 19 (12-78) U/L Alkaline Phosphatase 78 (46-116) U/L Total Protein 5.9 L (6.4-8.2) g/dL Albumin 3.2 L (3.4-5.0) g/dL Globulin 2.7 (2.2-4.2) g/dL Albumin/Globulin Ratio 1.2 (0.8-2.0) Urine Opiates Screen Negative (NEGATIVE) Ur Oxycodone Screen Negative (NEGATIVE) Urine Methadone Screen Negative (NEGATIVE) Ur Barbiturates Screen Negative (NEGATIVE) Ur Tricyclics Screen Negative (NEGATIVE) Ur Phencyclidine Scrn Negative (NEGATIVE) Ur Amphetamine Screen Negative (NEGATIVE) U Methamphetamines Scrn Negative (NEGATIVE) Urine MDMA Screen Negative (NEGATIVE) U Benzodiazepines Scrn Positive H (NEGATIVE) U Cocaine Metab Screen Negative (NEGATIVE) U Marijuana (THC) Screen Negative (NEGATIVE) Med Orders - Current: Current Medications Acetaminophen (Tylenol Extra Strength) 500 mg PO Q4H PRN PRN Reason: headache Last Admin: 11/10/18 11:46 Dose: 500 mg Discontinued Medications Flumazenil (Romazicon) 0.5 mg IVPUSH ONETIME STA Stop: 11/09/18 22:56 Last Admin: 11/09/18 22:55 Dose: 0.5 mg Flumazenil (Romazicon) Confirm Administered Dose 0.5 mg .ROUTE .STK-MED ONE Stop: 11/09/18 23:04 Last Admin: 11/10/18 00:43 Dose: Not Given - Exam General: Reports: Alert, Oriented HEENT: Reports: Pupils Equal, Pupils Reactive, EOMI, Mucous Membr. Moist/Bruni Neck: Reports: Supple Lungs: Reports: Clear to Auscultation, Normal Respiratory Effort Cardiovascular: Reports: Regular Rate, Regular Rhythm Extremities: Normal Inspection, Normal Range of Motion, Non-Tender, No Pedal Edema, Normal Capillary Refill Skin: Reports: Warm, Intact Neurological: Reports: No New Focal Deficit Psy/Mental Status: Reports: Alert, Agitated, Hallucinations, Other (maniac, paranoid, wandering, disrobbing. Needs frequent redirection.). Denies: Suicidal Ideation, Homicidal Ideation
[2018-11-10] MEDS ORDERED: LORazepam 2 MG/ML SDV ONE (15:04)
[2018-11-10] MEDS ORDERED: Benztropine 0.5 MG Tab PO PRN (21:34)
[2018-11-10] MEDS ORDERED: NICOTINE POLACRILEX 2 MG BC PRN (21:34)
[2018-11-10] MEDS ORDERED: Haloperidol Lactate 5 MG/ML SDV IM PRN (21:34)
[2018-11-10] MEDS ORDERED: hydrOXYzine HCl 25 MG Tab PO PRN (21:34)
[2018-11-10] MEDS ORDERED: LEVETIRACETAM 1000 MG PO SCH ×2 (23:30→23:35)
[2018-11-10] MEDS ORDERED: OLANZAPINE 15 MG PO SCH (23:45)
[2018-11-11] MEDS ORDERED: Gabapentin 400 MG Cap ONE ×2 (01:08→09:04)
[2018-11-11] MEDS: Gabapentin 400 MG Cap PO SCH ×2 (01:09→09:00)
[2018-11-11] MEDS: LEVETIRACETAM 1000 MG PO SCH ×2 (01:09→08:20)
[2018-11-11] MEDS: LITHIUM CARBONATE 450 MG PO SCH ×2 (01:10→08:20)
[2018-11-11] MEDS: LAMOTRIGINE 200 MG PO SCH ×2 (01:11→08:20)
[2018-11-11] MEDS ORDERED: Cyanocobalamin (Vitamin B12) 1,000 MCG Tab PO SCH (08:00)
[2018-11-11] MEDS ORDERED: Magnesium Oxide 400 MG Tab PO SCH (08:00)
[2018-11-11] MEDS ORDERED: CALCIUM CITRATE PO SCH (08:00)
[2018-11-11] MEDS ORDERED: Ferrous Sulfate 325 MG Tab PO SCH (08:00)
[2018-11-11] MEDS ORDERED: VITAMIN D3 PO SCH (08:00)
[2018-11-11] MEDS ORDERED: Calcium Carbonate/Vitamin D3 600 MG-200 Units Tab PO SCH (08:00)
[2018-11-11] MEDS ORDERED: [UNRECOGNIZED DRUG - OTHER] PO SCH (08:00)
[2018-11-11] MEDS ORDERED: Cholecalciferol (Vitamin D3) 2,000 Unit Cap PO SCH (08:00)
--- NOTE | 2018-11-11 09:58 | PCM.DCSUM1 ---
Discharge Summary - Hospital Course Free Text/Narrative:: Pt was initially admitted on 11/09/18 with diagnosis of questionable drug overdose. Patient's workup and exam was stable. He was in deep sleep from his new regime of antipsychotics. He was admitted for observation. HAd uneventful night. On 11.10.18, in the morning, patient was arousable and alert. By noon patient was having significant behavioral changes. He was wandering around from room to room and disturbing other patient's in the hospital, Walking around Naked in the hospital, very agitated but not aggressive. Also had some delusional taught with hallucinations. Pt was evaluated by Dr. Cottrell on telepsych consult, and recommended inpatient psych care. Apparently did try every possible hospital in the state on [place] and [place] and failed to get accepting facility. Hence patient was given Haldol 5mg IM with Ativan 2 mg . Following which pt settle down and went to sleep. He did take his routine medications. Today 11/11/18, pt is awake and alert. He is happy and very co-operative, no agitation. Has had his breakfast. he is not having any psychotic behaviors. Also patient claims that he does not take his medications correctly and misses it. Requesting if there is any way of having his medication managed by someone to help him take them correctly. Also there is some concern with drug stealing from some one around him. Both his Ativan and gabapentin bottle were empty. His Ativan was just refilled on 11/09 with 60 tablets. When I ask patient he is not sure. He does not keep his medication in locked cabinet. I do agree that he need medication management, hence I have referred him to Home health. Als advised to stay on present medication regime. Pt is clinically and mentally stable for discharge. Advised to continue home meds. Follwup in clinic in 7-10 days. He should have psychiatrist followup scheduled through clinic. Brief History: Pt was brought in by EMS with concerns of drug overdose. Pt on exam in the emergency room, appeared to be sleeping. He was arousable. His CBC, BMP were normal. His urine drug screen showed postive benzo. Pt wasadmitted for observation over night. Kindly see H&P for details. Diagnosis: Stroke: No - Discharge Data Discharge Date: 11/11/18 Discharge Disposition: DC/Tfer to Psych Hosp/Unit 65 Condition: Fair - Discharge Diagnosis/Problem(s) (1) Drug overdose SNOMED Code(s): 22827990 ICD Code: T50.901A - POISONING BY UNSP DRUG/MEDS/BIOL SUBST, ACCIDENTAL, INIT Status: Acute Current Visit: Yes (2) Schizophrenia spectrum disorder with psychotic disorder type not yet determined SNOMED Code(s): 08999553 ICD Code: F29 - UNSP PSYCHOSIS NOT DUE TO A SUBSTANCE OR KNOWN PHYSIOL COND Status: Acute Current Visit: Yes - Patient Instructions Diet: Usual Diet as Tolerated Fluid Restriction: 1500 mL Activity: As Tolerated Showering/Bathing: May Shower - Discharge Plan *PRESCRIPTION DRUG MONITORING PROGRAM REVIEWED*: Not Applicable *COPY OF PRESCRIPTION DRUG MONITORING REPORT IN PATIENT HEMAL: Not Applicable Home Medications: Home Meds Calcium Citrate/Vitamin D3 [Calcium Citrate + D] 1 each PO BID 12/10/13 [History ] Cholecalciferol (Vitamin D3) [D3-2000] 2,000 unit PO DAILY 12/10/13 [History] Cyanocobalamin (Vitamin B-12) [B-12] 1,000 mcg PO DAILY 12/10/13 [History] Magnesium Oxide [Magnesium] 400 mg PO DAILY 12/10/13 [History] Gabapentin [Neurontin] 800 mg PO TID 01/10/15 [History] lamoTRIgine [Lamictal] 200 mg PO BID 07/15/15 [History] levETIRAcetam [Levetiracetam] 1,000 mg PO BID 08/26/17 [History] Acetaminophen 1,000 mg PO QID PRN 11/10/18 [History] Benztropine [Cogentin] 0.5 mg PO BID PRN 11/10/18 [History] Ferrous Sulfate [Ferosul] 325 mg PO DAILY 11/10/18 [History] [place] Carbonate [Eskalith CR] 450 mg PO Q12H 11/10/18 [History] Nicotine Polacrilex [Nicotine Gum] 2 mg BC Q1H PRN 11/10/18 [History] OLANZapine [Zyprexa] 15 mg PO BEDTIME 11/10/18 [History] QUEtiapine [SEROquel] 50 mg PO TID PRN 11/10/18 [History] hydrOXYzine HCl [hydrOXYzine] 50 mg PO Q6H PRN 11/10/18 [History] Forms: ED Department Discharge - Discharge Summary/Plan Comment DC Time >30 min.: Yes - General Info Date of Service: 11/11/18 Functional Status: Reports: Pain Controlled, Tolerating Diet, Ambulating, Urinating - Review of Systems General: Denies: Fever, Weakness HEENT: Denies: Sinus Congestion, Rhinitis Pulmonary: Denies: Shortness of Breath, Cough, Hemoptysis Cardiovascular: Denies: Chest Pain, Lightheadedness Gastrointestinal: Denies: Abdominal Pain, Nausea, Vomiting Skin: Denies: Bruising, Pruritis, Rash Neurological: Denies: Confusion, Dizziness, Headache Psychiatric: Denies: Confusion, Depression, Mood Lability, Anxiety, Hallucinations, Suicidal Ideation - Patient Data Vitals - Most Recent: Last Vital Signs Temp 97.9 F 11/10/18 08:35 Pulse 71 11/11/18 00:00 Resp 20 11/10/18 08:35 BP 123/73 11/11/18 00:00 Pulse Ox 99 11/11/18 00:00 Med Orders - Current: Current Medications Acetaminophen (Tylenol Extra Strength) 500 mg PO Q4H PRN PRN Reason: headache Last Admin: 11/10/18 11:46 Dose: 500 mg Benztropine Mesylate (Cogentin) 0.5 mg PO BID PRN PRN Reason: Extrapyramidal Symptoms Calcium Carbonate (Calcium Carbonate/Vitamin D 600 Mg-200 Unit) 1 tab PO BIDMEALS [facility] Last Admin: 11/11/18 08:20 Dose: Not Given Cholecalciferol (Vitamin D3) 2,000 unit PO DAILY [facility] Last Admin: 11/11/18 09:01 Dose: Not Given Cyanocobalamin (Vitamin B12) 1,000 mcg PO DAILY [facility] Last Admin: 11/11/18 09:00 Dose: Not Given Ferrous Sulfate (Ferrous Sulfate) 325 mg PO DAILY [facility] Last Admin: 11/11/18 08:20 Dose: Not Given Gabapentin (Neurontin) 800 mg PO TID [facility] Last Admin: 11/11/18 09:00 Dose: Not Given Haloperidol Lactate (Haldol) 5 mg IM Q8H PRN PRN Reason: Agitation Hydroxyzine HCl (Atarax) 50 mg PO Q6H PRN PRN Reason: Anxiety Magnesium Oxide (Magnesium Oxide) 400 mg PO DAILY [facility] Last Admin: 11/11/18 08:59 Dose: Not Given Lamotrigine [ Lamictal] 200 Mg Tab Own Med 200 mg PO BID [facility] Last Admin: 11/11/18 08:20 Dose: 200 mg [place] Carbonate [ Eskalith Cr] 450 Mg TabOwn Med 450 mg PO BID [facility] Last Admin: 11/11/18 08:20 Dose: 450 mg Olanzapine 15mg Tab* (*Own Med) 1 each PO BEDTIME [facility] Last Admin: 11/11/18 01:09 Dose: 1 each Levetiracetam 1000 (Mg TabOwn Med) 1 each PO BID [facility] Last Admin: 11/11/18 08:20 Dose: 1 each Quetiapine Fumarate (Seroquel) 50 mg PO TID PRN PRN Reason: Agitation Discontinued Medications Acetaminophen (Tylenol Extra Strength) 1,000 mg PO QID PRN PRN Reason: pain Flumazenil (Romazicon) 0.5 mg IVPUSH ONETIME STA Stop: 11/09/18 22:56 Last Admin: 11/09/18 22:55 Dose: 0.5 mg Flumazenil (Romazicon) Confirm Administered Dose 0.5 mg .ROUTE .STK-MED ONE Stop: 11/09/18 23:04 Last Admin: 11/10/18 00:43 Dose: Not Given Gabapentin (Neurontin) Confirm Administered Dose 800 mg .ROUTE .STK-MED ONE Stop: 11/11/18 01:09 Last Admin: 11/11/18 01:20 Dose: Not Given Gabapentin (Neurontin) Confirm Administered Dose 3,200 mg .ROUTE .STK-MED ONE Stop: 11/11/18 09:05 Haloperidol Lactate (Haldol) 5 mg IM ONETIME ONE Stop: 11/10/18 15:01 Last Admin: 11/10/18 15:20 Dose: 5 mg Levetiracetam (Keppra) 1,000 mg PO ONETIME ONE Stop: 11/10/18 13:31 Last Admin: 11/10/18 13:30 Dose: 1,000 mg [place] Carbonate (Eskalith) 450 mg PO ONETIME ONE Stop: 11/10/18 13:31 Last Admin: 11/10/18 13:30 Dose: 450 mg Lorazepam (Ativan) 2 mg IM ONETIME ONE Stop: 11/10/18 15:01 Last Admin: 11/10/18 15:20 Dose: 2 mg Lorazepam (Ativan) Confirm Administered Dose 2 mg .ROUTE .STK-MED ONE Stop: 11/10/18 15:05 Last Admin: 11/10/18 15:26 Dose: Not Given Lamotrigine 200 Mg (TabOwn Med) 200 each PO ONETIME ONE Stop: 11/10/18 13:31 Last Admin: 11/10/18 13:30 Dose: 200 each Non-Formulary Medication (Calcium Citrate/Vitamin D3 [Calcium Citrate + D]) 1 each PO BID [facility] Levetiracetam 1000 (Mg TabOwn Med) 1,000 each PO BID [facility] Non-Formulary Medication (Nicotine Polacrilex [Nicotine Gum]) 2 mg BC Q1H PRN PRN Reason: Agitation Levetiracetam 1000 (Mg TabOwn Med) 1 each PO BID [place] - Exam General: Reports: Alert, Oriented, Cooperative HEENT: Reports: Pupils Equal, Pupils Reactive, EOMI, Mucous Membr. Moist/[place]: Reports: Supple Lungs: Reports: Clear to Auscultation, Normal Respiratory Effort Cardiovascular: Reports: Regular Rate, Regular Rhythm Extremities: Normal Inspection, Normal Range of Motion, Non-Tender, No Pedal Edema, Normal Capillary Refill Skin: Reports: Warm, Intact Neurological: Reports: No New Focal Deficit Psy/Mental Status: Reports: Alert, Normal Affect, Normal Mood
[2018-11-11 13:05] VITALS: BP 116/64
--- NOTE | 2018-11-14 07:44 | CONS ---
DATE OF CONSULTATION: 11/10/2018 PSYCHIATRIC INPATIENT CONSULTATION This is a 60-minute inpatient telemedicine event. Site where the services are provided to are [facility] in [place], [place]. Site where the services are provided from, our offices in [facility]. Length of time for this 60-minute inpatient telemedicine event is 60 minutes. IDENTIFICATION: The patient is a 28-year-old male who was admitted through the [facility] in [place], [place], on observation status. He is seen for psychiatric consultation per the request of staff attending, Dr. Harrison, and his inpatient treatment team. CHIEF COMPLAINT: "I was with a friend from [employer]." HISTORY OF PRESENT ILLNESS: The patient is a 28-year-old male who was admitted to the inpatient medical unit at [facility], after presenting to the emergency room with bizarre behaviors. Evidently, the patient had been hard to manage at his mother's house, so he was brought in for medical assessment, and he was admitted for further observation. On the inpatient unit, he has been having to be placed on 1:1, and he is very hard to redirect. The patient is disrobing inappropriately on the medical unit and generally causing a ruckus and a commotion that is hard for the staff to handle. His tox screen was positive for benzos on admission. On interview, the patient is alert and oriented x1 to his name, but he is not able to tell the date or where he is. He is not making any sense when responding to questions, and his attention span is quite short. He seems internally preoccupied at times, and at other times, he seems to want to fall asleep. His mood is labile and generally uncooperative. He appears psychotic, delusional. MEDICATIONS AT THE TIME OF PRESENTATION: 1. Benztropine 0.5 mg b.i.d. p.r.n. 2. Neurontin 800 mg t.i.d. 3. Hydroxyzine 50 mg q.i.d. p.r.n. 4. Lamictal 200 mg b.i.d. 5. Keppra 1000 mg b.i.d. 6. Zyprexa 50 mg at bedtime. 7. Seroquel 50 mg t.i.d. p.r.n. 8. [place] 450 mg b.i.d. PAST MEDICAL HISTORY: 1. History of epilepsy. 2. Status post gastric bypass. REVIEW OF SYSTEMS: Besides neuro and GI, all other major organ systems are negative at this point in time for acute difficulties or complications. FAMILY PSYCHIATRIC AND CD HISTORY: None reported. PAST PSYCHIATRIC AND CD HISTORY: The patient is unable to answer any questions in a meaningful fashion, but staff is reporting that the patient does have a history of [place] and, in fact, had been hospitalized in [facility] on the one of the psychiatric units in [facility] not too long ago and then discharged back to the community. SOCIAL HISTORY: The patient had been living with his mother in [place], [place], most recently, but otherwise, the patient is unable to provide any additional social history. MENTAL STATUS EXAMINATION: The patient is a 28-year-old white male, who is disrobed and only in underwear, walking around the room, internally preoccupied and sitting down for only short periods of time during the interview. The patient is alert and oriented x1 to person, but not to place and date. He is not able to answer any questions in a meaningful fashion. Thought content appears significant for psychotic processes and paranoia. Affect is quite labile and psychotic. Thought processes are disorganized. Judgment and insight appear quite impaired at this point in time. Motivation for help is poor. Vitals at the time of presentation: 144/95, 108, 16, 97.8 degrees. IMPRESSION: [place] I: 1. Psychosis, not otherwise specified, F29. 2. Rule out schizoaffective disorder. 3. Rule out schizophrenic condition with acute decompensation. [place] II: None. [place] III: 1. History of epilepsy. 2. Status post gastric bypass. [place] IV: Severe. [place] V: 50. PLAN: 1. Recommend the patient be transferred to inpatient psych, when medically cleared at the [facility] in [place], [place], as the patient's presentation appears to be psychiatric in nature as opposed to medical. 2. Would place the patient on 72-hour hold and transfer hold for the purposes of moving the patient to inpatient psych, as the patient is a danger to himself and others in this current condition. 3. Will continue to follow up with the patient on an as-needed basis while he remains on the inpatient medical unit at [facility] in [place], [place]. 4. Will follow up with the patient sooner if there are any complications in the interim. 5. Crisis plain is in place. MARCO ANTONIO/PALAK /[id number] MTDD
[2028-11-21] MEDS ORDERED: Gabapentin 400 MG Cap ONE (09:30)
== END 2018-11-11 10:56 | disposition home or self-care (01) ==
LOC: LB.ED 22:29 → UNDOADMOB 23:15 → LB.MS 23:15 → EEVIPCON 23:19
PROVIDERS: ADMIT Family Medicine; ATTEND Family Medicine
DX: T50.901A Poisoning by unspecified drugs, medicaments and biological substances, accidental (unintentional), initial encounter (principal); E11.9 Type 2 diabetes mellitus without complications; F41.9 Anxiety disorder, unspecified; F31.9 Bipolar disorder, unspecified; Z79.899 Other long term (current) drug therapy; Z88.1 Allergy status to other antibiotic agents
CPT/HCPCS: 36415; 80053; 80307; 85025; 93005; 96372; 99285-25; A0425; A0429; A9270-GY; J1630; J2060; J3490

== ENCOUNTER 2019-02-06 15:18 | Emergency (ER) | payer MEDICAID ==
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
[2019-02-06] MEDS: Gabapentin 800 MG Tab PO ONE (17:20)
[2019-02-06] MEDS: Gabapentin 400 MG Cap ONE (17:22)
[2019-02-06 19:57] VITALS: BP 138/86
[2019-02-06] MEDS: Acetaminophen 325 MG Tab PO ONE (21:00)
[2019-02-06] MEDS: Acetaminophen 325 MG Tab ONE (21:48)
== END 2019-02-06 21:10 ==
LOC: EEVIPCON 15:18 → LB.ED 15:18
DX: R45.851 Suicidal ideations (principal); F31.9 Bipolar disorder, unspecified; F41.9 Anxiety disorder, unspecified; E11.9 Type 2 diabetes mellitus without complications; Z79.899 Other long term (current) drug therapy; Z88.1 Allergy status to other antibiotic agents
CPT/HCPCS: 36415; 80053; 80307; 81001; 84443; 85025; 99285; A0425; A0429; A9270-GY; G0480

== ENCOUNTER 2019-02-24 19:04 | Emergency (ER) | payer MEDICAID ==
[2019-02-24 22:10] VITALS: BP 140/92
== END 2019-02-24 19:35 | disposition left against medical advice (07) ==
LOC: LB.ED 19:04
DX: Z53.21 Procedure and treatment not carried out due to patient leaving prior to being seen by health care provider (principal)
CPT/HCPCS: 36415; 80053; 80307; 84443; 85025; G0480

== ENCOUNTER 2019-02-27 07:58 | Observation (INO) | payer MEDICAID ==
[2019-02-27] MEDS ORDERED: Sodium Chloride 0.9% 500 ML IV ONE (15:15)
[2019-02-27] MEDS: Sodium Chloride 0.9% 10 ML Syringe FLUSH PRN (20:06)
[2019-02-28] MEDS ORDERED: Acetaminophen 325 MG Tab ONE ×2 (08:18→13:37)
[2019-02-28] MEDS ORDERED: Ondansetron 4 MG Tab.DIS ONE (08:26)
--- NOTE | 2019-02-28 08:37 | PCM.PN ---
- General Info Date of Service: 02/28/19 Admission Dx/Problem (Free Text): Suicidal ideation, medication overdose Subjective Update: Patient has remained alert and oriented to person, place, and time throughout his hospital stay and he has remained physical stable. Patient states he started hearing auditory hallucinations during the evening and night. He states the voices in his head are loud and they are telling him to get out of bed and harm himself. He states that it has been difficult for him to stay in bed due to the voices. He states the voices make him feel anxious. Patient states he is still experiencing suicidal ideation, and that he has thoughts and intentions of killing himself. Patient also reports a headache and nausea this morning. He states he was unable to eat breakfast due to the nausea. Functional Status: Reports: New Symptoms (nausea and headache). Denies: Pain Controlled, Tolerating Diet Pain Score: 5 - Review of Systems General: Denies: Fever, Weakness, Chills HEENT: Reports: Headaches. Denies: Dysphasia, Visual Changes Pulmonary: Denies: Shortness of Breath, Cough, Wheezing Cardiovascular: Denies: Chest Pain, Palpitations, Dyspnea on Exertion, Lightheadedness Gastrointestinal: Reports: Decreased Appetite, Nausea. Denies: Abdominal Pain, Diarrhea, Difficulty Swallowing Neurological: Reports: Headache. Denies: Confusion, Syncope, Tingling, Difficulty Walking, Weakness, Change in Speech, Gait Disturbance Psychiatric: Reports: Depression, Anxiety, Hallucinations, Suicidal Ideation. Denies: Homicidal Ideation - Patient Data Vitals - Most Recent: Last Vital Signs Temp 97.8 F 02/28/19 07:31 Pulse 60 02/28/19 07:31 Resp 17 02/28/19 07:31 BP 137/75 02/28/19 07:31 Pulse Ox 99 02/28/19 03:51 Weight - Most Recent: 274 lb 6.4 oz I&O - Last 24 Hours: Intake & Output 02/27/19 02/28/19 02/28/19 22:59 06:59 14:59 Intake Total 1999 840 Balance 1999 840 Lab Results Last 24 Hours: Laboratory Results - last 24 hr 02/27/19 02/27/19 02/27/19 Range/Units 08:19 14:18 14:18 WBC 6.1 (4.0-11.0) K/uL RBC 4.34 L (4.50-6.50) M/uL Hgb 14.1 (13.0-18.0) g/dL Hct 41.7 (40.0-54.0) % MCV 96 (76-96) fL MCH 32.5 H (27.0-32.0) pg MCHC 33.8 (31.0-35.0) g/dL RDW 12.4 (11.0-16.0) % Plt Count 232 (150-400) K/uL MPV 10.4 H (6.0-10.0) fL Neut % (Auto) 52.2 (45.0-70.0) % Lymph % (Auto) 36.9 (20.0-40.0) % [place] % (Auto) 7.9 (3.0-10.0) % Eos % (Auto) 2.5 (1.0-5.0) % Baso % (Auto) 0.5 (0.0-0.5) % Neut # (Auto) 3.18 (2.00-7.50) K/uL Lymph # (Auto) 2.25 (1.50-4.00) K/uL [place] # (Auto) 0.48 (0.20-0.80) K/uL Eos # (Auto) 0.15 (0.04-0.40) K/uL Baso # (Auto) 0.03 (0.02-0.10) K/uL Sodium 143 (136-145) mmol/L Potassium 3.9 (3.5-5.1) mmol/L Chloride 107 (98-107) mmol/L Carbon Dioxide 23.7 (21.0-32.0) mmol/L Anion Gap 16.2 H (5.0-15.0) mmol/L BUN 13 D (8-26) mg/dL Creatinine 0.77 D (0.70-1.30) mg/dL Est Cr Clr Drug Dosing TNP Estimated GFR (MDRD) > 60 (>60) MLS/MIN BUN/Creatinine Ratio 16.9 (6-25) Glucose 101 H (74-100) mg/dL Calcium 8.9 (8.5-10.1) mg/dL Total Bilirubin 0.1 D (0.0-1.0) mg/dL AST 13 L (15-37) U/L ALT 25 (12-78) U/L Alkaline Phosphatase 73 (46-116) U/L Total Protein 7.5 (6.4-8.2) g/dL Albumin 4.1 (3.4-5.0) g/dL Globulin 3.4 (2.2-4.2) g/dL Albumin/Globulin Ratio 1.2 (0.8-2.0) TSH, Ultra Sensitive 4.940 H D (0.358-3.740) uIU/mL Urine Opiates Screen (NEGATIVE) Ur Oxycodone Screen (NEGATIVE) Urine Methadone Screen (NEGATIVE) Acetaminophen ug/mL Ur Barbiturates Screen (NEGATIVE) Ur Tricyclics Screen (NEGATIVE) Ur Phencyclidine Scrn (NEGATIVE) Ur Amphetamine Screen (NEGATIVE) U Methamphetamines Scrn (NEGATIVE) Urine MDMA Screen (NEGATIVE) U Benzodiazepines Scrn (NEGATIVE) U Cocaine Metab Screen (NEGATIVE) U Marijuana (THC) Screen (NEGATIVE) Ethyl Alcohol 116.0 H (0.0-0.0) mg/dL 02/27/19 02/27/19 02/28/19 Range/Units 14:18 14:58 07:10 WBC (4.0-11.0) K/uL RBC (4.50-6.50) M/uL Hgb (13.0-18.0) g/dL Hct (40.0-54.0) % MCV (76-96) fL MCH (27.0-32.0) pg MCHC (31.0-35.0) g/dL RDW (11.0-16.0) % Plt Count (150-400) K/uL MPV (6.0-10.0) fL Neut % (Auto) (45.0-70.0) % Lymph % (Auto) (20.0-40.0) % [place] % (Auto) (3.0-10.0) % Eos % (Auto) (1.0-5.0) % Baso % (Auto) (0.0-0.5) % Neut # (Auto) (2.00-7.50) K/uL Lymph # (Auto) (1.50-4.00) K/uL [place] # (Auto) (0.20-0.80) K/uL Eos # (Auto) (0.04-0.40) K/uL Baso # (Auto) (0.02-0.10) K/uL Sodium (136-145) mmol/L Potassium (3.5-5.1) mmol/L Chloride (98-107) mmol/L Carbon Dioxide (21.0-32.0) mmol/L Anion Gap (5.0-15.0) mmol/L BUN (8-26) mg/dL Creatinine (0.70-1.30) mg/dL Est Cr Clr Drug Dosing Estimated GFR (MDRD) (>60) MLS/MIN BUN/Creatinine Ratio (6-25) Glucose (74-100) mg/dL Calcium (8.5-10.1) mg/dL Total Bilirubin (0.0-1.0) mg/dL AST (15-37) U/L ALT (12-78) U/L Alkaline Phosphatase (46-116) U/L Total Protein (6.4-8.2) g/dL Albumin (3.4-5.0) g/dL Globulin (2.2-4.2) g/dL Albumin/Globulin Ratio (0.8-2.0) TSH, Ultra Sensitive (0.358-3.740) uIU/mL Urine Opiates Screen Negative (NEGATIVE) Ur Oxycodone Screen Negative (NEGATIVE) Urine Methadone Screen Negative (NEGATIVE) Acetaminophen < 2.0 ug/mL Ur Barbiturates Screen Negative (NEGATIVE) Ur Tricyclics Screen Negative (NEGATIVE) Ur Phencyclidine Scrn Negative (NEGATIVE) Ur Amphetamine Screen Negative (NEGATIVE) U Methamphetamines Scrn Negative (NEGATIVE) Urine MDMA Screen Negative (NEGATIVE) U Benzodiazepines Scrn Negative (NEGATIVE) U Cocaine Metab Screen Negative (NEGATIVE) U Marijuana (THC) Screen Negative (NEGATIVE) Ethyl Alcohol 1.0 H (0.0-0.0) mg/dL Med Orders - Current: Current Medications Sodium Chloride (Saline Flush) 10 ml FLUSH ASDIRECTED PRN PRN Reason: Keep Vein Open Last Admin: 02/27/19 20:06 Dose: 10 ml Discontinued Medications Acetaminophen (Tylenol) Confirm Administered Dose 650 mg .ROUTE .STK-MED ONE Stop: 02/28/19 08:19 Last Admin: 02/28/19 08:28 Dose: 650 mg Sodium Chloride (Normal Saline) 500 mls @ 999 mls/hr IV .BOLUS ONE Stop: 02/27/19 15:45 Last Admin: 02/27/19 15:50 Dose: 999 mls/hr Ondansetron HCl (Zofran Odt) Confirm Administered Dose 4 mg .ROUTE .STK-MED ONE Stop: 02/28/19 08:27 - Exam General: Alert, Oriented, Cooperative, No Acute Distress HEENT: Pupils Equal, Pupils Reactive Lungs: Clear to Auscultation, Normal Respiratory Effort Cardiovascular: Regular Rate, Regular Rhythm GI/Abdominal Exam: Normal Bowel Sounds, Soft Neurological: Normal Gait, Normal Speech, Normal Tone Psy/Mental Status: Alert, Anxious, Depressed, Suicidal Ideation, Hallucinations. No: Homicidal Ideation - Problem List Review Problem List Initiated/Reviewed/Updated: Yes - My Orders Last 24 Hours: My Active Orders 02/27/19 08:19 VITAMIN B12 Routine 02/27/19 14:18 LEVETIRACETAM (KEPPRA), S Routine LITHIUM (ESKALITH(R)), SERUM Routine 02/27/19 15:15 Patient Status [ADT] Routine Oxygen Therapy [RC] PRN Up With Assistance [RC] ASDIRECTED VTE/DVT Education [RC] Per Unit Routine Vital Signs [RC] Q4H Sodium Chloride 0.9% [Saline Flush] 10 ml FLUSH ASDIRECTED PRN Peripheral IV Insertion Adult [OM.PC] Routine Resuscitation Status Routine 02/27/19 15:18 Cardiac Monitoring [RC] CONTINUOUS Notify Provider Vital Signs [RC] ASDIRECTED 02/27/19 15:19 Ambulate [RC] PER UNIT ROUTINE 02/27/19 Dinner Regular Diet [DIET] - Assessment Assessment:: suicidal ideation: Will continue one on one nurse monitoring. Requesting transfer to psychiatric facility. Medication overdose: Will continue one on one nurse monitoring. Patient is medically stable at this time. Will request transfer to psychiatric facility. Auditory hallucinations: Continue one on one nurse monitoring. Will request transfer to psychiatric facility. - Plan Plan:: suicidal ideation: Will continue one on one nurse monitoring. Requesting transfer to psychiatric facility. Medication overdose: Will continue one on one nurse monitoring. Patient is medically stable at this time. Will request transfer to psychiatric facility. Auditory hallucinations: Continue one on one nurse monitoring. Will request transfer to psychiatric facility. Patient is medically stable at this time. [place], Keppra, and Iron levels are pending. Will request transfer today to psychiatric facility due to suicidal ideation and auditory hallucinations. Ordered 652 mg of Tylenol for headache and Zofran 4 mg for nausea.
[2019-02-28] MEDS ORDERED: HYDROXYZINE HCL 50 MG PO PRN (10:08)
[2019-02-28] MEDS ORDERED: GABAPENTIN 400 MG PO SCH (10:09)
[2019-02-28] MEDS ORDERED: Levothyroxine 25 MCG Tab**OWN MED PO SCH (10:10)
[2019-02-28] MEDS ORDERED: MULTIVIT MIN PO SCH (10:15)
[2019-02-28] MEDS ORDERED: BENZTROPINE 0.5 MG PO SCH (10:15)
[2019-02-28] MEDS ORDERED: VITAMIN D3 PO SCH (10:15)
[2019-02-28] MEDS ORDERED: MAGNESIUM OXIDE 400 MG PO SCH (10:15)
[2019-02-28] MEDS ORDERED: CHOLECALCIFEROL 2000 UNIT PO SCH (10:15)
[2019-02-28] MEDS ORDERED: CETIRIZINE 10 MG PO SCH (10:15)
[2019-02-28] MEDS ORDERED: OLANZAPINE 5 MG PO SCH (10:15)
[2019-02-28] MEDS ORDERED: Calcium Polycarbophil 625 MG Tab PO SCH (10:15)
[2019-02-28] MEDS ORDERED: [UNRECOGNIZED DRUG - OTHER] PO SCH (10:15)
[2019-02-28] MEDS ORDERED: LITHIUM CARBONATE 450 MG PO SCH (10:15)
[2019-02-28] MEDS ORDERED: LAMOTRIGINE 200 MG PO SCH (10:15)
[2019-02-28] MEDS ORDERED: LYCOPENE PO SCH (10:15)
[2019-02-28] MEDS ORDERED: Non-Formulary Medication 1 Each (Levetiracetam [Levetiracetam] 750 MG) PO SCH (10:15)
[2019-02-28] MEDS ORDERED: LUT PO SCH (10:15)
[2019-02-28] MEDS ORDERED: CALCIUM CITRATE PO SCH (10:15)
[2019-02-28 11:36] VITALS: BP 145/72
[2019-02-28] MEDS: Sodium Chloride 0.9% 10 ML Syringe FLUSH PRN (11:44)
[2019-02-28] MEDS ORDERED: Acetaminophen 325 MG Tab PO PRN (13:33)
--- NOTE | 2019-02-28 14:11 | PCM.DCSUM1 ---
Discharge Summary - Hospital Course Free Text/Narrative:: Patient being discharged to [facility] due to continued suicidal ideation and auditory hallucinations. Patient will be transferred by S ambulance. Patient is medically stable at this time. Dr. Nix will be accepting patient for inpatient psychiatric treatment. Bed placement has been confirmed. Patient in agreement with transfer. - Discharge Data Discharge Date: 02/28/19 Discharge Disposition: DC/Tfer to Psych Hosp/Unit [facility] Condition: Good - Discharge Plan Home Medications: Home Meds Calcium Citrate/Vitamin D3 [Calcium Citrate + D] 1 each PO BID 12/10/13 [History ] Cholecalciferol (Vitamin D3) [D3-2000] 2,000 unit PO DAILY 12/10/13 [History] Magnesium Oxide [Magnesium] 400 mg PO DAILY 12/10/13 [History] Gabapentin [Neurontin] 800 mg PO TID 01/10/15 [History] lamoTRIgine [Lamictal] 200 mg PO BID 07/15/15 [History] Acetaminophen 1 - 2 mg PO QID PRN 11/10/18 [History] Ferrous Sulfate [Ferosul] 325 mg PO DAILY 11/10/18 [History] [place] Carbonate [Eskalith CR] 450 mg PO BID 11/10/18 [History] OLANZapine [Zyprexa] 15 mg PO QPM 11/10/18 [History] QUEtiapine [SEROquel] 50 mg PO BID@1700,2000 11/10/18 [History] hydrOXYzine HCl [hydrOXYzine] 50 mg PO Q6H PRN 11/10/18 [History] Benztropine Mesylate 0.5 mg PO BID 02/06/19 [History] Calcium Polycarbophil [Fiber-Tabs] 650 mg PO DAILY 02/06/19 [History] Cetirizine [ZyrTEC] 10 mg PO DAILY 02/06/19 [History] Cyanocobalamin (Vitamin B12) [Vitamin B12] 1,000 mcg IM ASDIRECTED 02/06/19 [ History] Levothyroxine 25 mcg PO ACBREAKFAST 02/06/19 [History] Multivit-Min/FA/Lycopene/Lut [Certavite Sr with Lutein Tab] 1 each PO DAILY 05/20 [History] OLANZapine [Olanzapine] 5 mg OP DAILY 02/06/19 [History] levETIRAcetam [Levetiracetam] 750 mg PO BID 02/06/19 [History] - Discharge Summary/Plan Comment DC Time >30 min.: No - Patient Data Vitals - Most Recent: Last Vital Signs Temp 98.2 F 02/28/19 11:33 Pulse 55 L 02/28/19 11:33 Resp 17 02/28/19 11:33 BP 145/72 H 02/28/19 11:33 Pulse Ox 100 02/28/19 11:33 Weight - Most Recent: 274 lb 6.4 oz I&O - Last 24 hours: Intake & Output 02/27/19 02/28/19 02/28/19 22:59 06:59 14:59 Intake Total 1999 840 Balance 1999 840 Lab Results - Last 24 hrs: Laboratory Results - last 24 hr 02/27/19 02/27/19 02/27/19 Range/Units 14:18 14:18 14:18 WBC 6.1 (4.0-11.0) K/uL RBC 4.34 L (4.50-6.50) M/uL Hgb 14.1 (13.0-18.0) g/dL Hct 41.7 (40.0-54.0) % MCV 96 (76-96) fL MCH 32.5 H (27.0-32.0) pg MCHC 33.8 (31.0-35.0) g/dL RDW 12.4 (11.0-16.0) % Plt Count 232 (150-400) K/uL MPV 10.4 H (6.0-10.0) fL Neut % (Auto) 52.2 (45.0-70.0) % Lymph % (Auto) 36.9 (20.0-40.0) % [place] % (Auto) 7.9 (3.0-10.0) % Eos % (Auto) 2.5 (1.0-5.0) % Baso % (Auto) 0.5 (0.0-0.5) % Neut # (Auto) 3.18 (2.00-7.50) K/uL Lymph # (Auto) 2.25 (1.50-4.00) K/uL [place] # (Auto) 0.48 (0.20-0.80) K/uL Eos # (Auto) 0.15 (0.04-0.40) K/uL Baso # (Auto) 0.03 (0.02-0.10) K/uL Sodium 143 (136-145) mmol/L Potassium 3.9 (3.5-5.1) mmol/L Chloride 107 (98-107) mmol/L Carbon Dioxide 23.7 (21.0-32.0) mmol/L Anion Gap 16.2 H (5.0-15.0) mmol/L BUN 13 D (8-26) mg/dL Creatinine 0.77 D (0.70-1.30) mg/dL Est Cr Clr Drug Dosing TNP Estimated GFR (MDRD) > 60 (>60) MLS/MIN BUN/Creatinine Ratio 16.9 (6-25) Glucose 101 H (74-100) mg/dL Calcium 8.9 (8.5-10.1) mg/dL Total Bilirubin 0.1 D (0.0-1.0) mg/dL AST 13 L (15-37) U/L ALT 25 (12-78) U/L Alkaline Phosphatase 73 (46-116) U/L Total Protein 7.5 (6.4-8.2) g/dL Albumin 4.1 (3.4-5.0) g/dL Globulin 3.4 (2.2-4.2) g/dL Albumin/Globulin Ratio 1.2 (0.8-2.0) Urine Opiates Screen Negative (NEGATIVE) Ur Oxycodone Screen Negative (NEGATIVE) Urine Methadone Screen Negative (NEGATIVE) Acetaminophen ug/mL Ur Barbiturates Screen Negative (NEGATIVE) Ur Tricyclics Screen Negative (NEGATIVE) Ur Phencyclidine Scrn Negative (NEGATIVE) Ur Amphetamine Screen Negative (NEGATIVE) U Methamphetamines Scrn Negative (NEGATIVE) Urine MDMA Screen Negative (NEGATIVE) U Benzodiazepines Scrn Negative (NEGATIVE) U Cocaine Metab Screen Negative (NEGATIVE) U Marijuana (THC) Screen Negative (NEGATIVE) Ethyl Alcohol 116.0 H (0.0-0.0) mg/dL 02/27/19 02/28/19 Range/Units 14:58 07:10 WBC (4.0-11.0) K/uL RBC (4.50-6.50) M/uL Hgb (13.0-18.0) g/dL Hct (40.0-54.0) % MCV (76-96) fL MCH (27.0-32.0) pg MCHC (31.0-35.0) g/dL RDW (11.0-16.0) % Plt Count (150-400) K/uL MPV (6.0-10.0) fL Neut % (Auto) (45.0-70.0) % Lymph % (Auto) (20.0-40.0) % [place] % (Auto) (3.0-10.0) % Eos % (Auto) (1.0-5.0) % Baso % (Auto) (0.0-0.5) % Neut # (Auto) (2.00-7.50) K/uL Lymph # (Auto) (1.50-4.00) K/uL [place] # (Auto) (0.20-0.80) K/uL Eos # (Auto) (0.04-0.40) K/uL Baso # (Auto) (0.02-0.10) K/uL Sodium (136-145) mmol/L Potassium (3.5-5.1) mmol/L Chloride (98-107) mmol/L Carbon Dioxide (21.0-32.0) mmol/L Anion Gap (5.0-15.0) mmol/L BUN (8-26) mg/dL Creatinine (0.70-1.30) mg/dL Est Cr Clr Drug Dosing Estimated GFR (MDRD) (>60) MLS/MIN BUN/Creatinine Ratio (6-25) Glucose (74-100) mg/dL Calcium (8.5-10.1) mg/dL Total Bilirubin (0.0-1.0) mg/dL AST (15-37) U/L ALT (12-78) U/L Alkaline Phosphatase (46-116) U/L Total Protein (6.4-8.2) g/dL Albumin (3.4-5.0) g/dL Globulin (2.2-4.2) g/dL Albumin/Globulin Ratio (0.8-2.0) Urine Opiates Screen (NEGATIVE) Ur Oxycodone Screen (NEGATIVE) Urine Methadone Screen (NEGATIVE) Acetaminophen < 2.0 ug/mL Ur Barbiturates Screen (NEGATIVE) Ur Tricyclics Screen (NEGATIVE) Ur Phencyclidine Scrn (NEGATIVE) Ur Amphetamine Screen (NEGATIVE) U Methamphetamines Scrn (NEGATIVE) Urine MDMA Screen (NEGATIVE) U Benzodiazepines Scrn (NEGATIVE) U Cocaine Metab Screen (NEGATIVE) U Marijuana (THC) Screen (NEGATIVE) Ethyl Alcohol 1.0 H (0.0-0.0) mg/dL Med Orders - Current: Current Medications Acetaminophen (Tylenol) 650 mg PO Q4H PRN PRN Reason: Headache Last Admin: 02/28/19 14:02 Dose: 650 mg Benztropine Mesylate (Cogentin) 0.5 mg PO BID [facility] Last Admin: 02/28/19 11:27 Dose: 0.5 mg Calcium Polycarbophil (Fibercon) 650 mg PO DAILY [facility] Cetirizine HCl (Zyrtec) 10 mg PO DAILY [facility] Last Admin: 02/28/19 11:31 Dose: 10 mg Cholecalciferol (Vitamin D3) 2,000 unit PO DAILY [facility] Last Admin: 02/28/19 11:30 Dose: 2,000 unit Gabapentin (Neurontin) 800 mg PO TID [facility] Last Admin: 02/28/19 11:24 Dose: 800 mg Levothyroxine Sodium (Levothyroxine) 25 mcg PO ACBREAKFAST [facility] Last Admin: 02/28/19 11:25 Dose: 25 mcg Magnesium Oxide (Magnesium Oxide) 400 mg PO DAILY [facility] Last Admin: 02/28/19 11:29 Dose: 400 mg Calcium Citrate/Vitamin D3 [Calcium Citrate + D] 1 Each* *Own Med 1 each PO BID [facility] Last Admin: 02/28/19 11:26 Dose: 1 each Hydroxyzine Hcl 50 (Mg TabOwn Med) 1 each PO Q6H PRN PRN Reason: Anxiety Last Admin: 02/28/19 13:46 Dose: 1 each Lamotrigine [ Lamictal] 200 Mg) Own Med 200 mg PO BID [facility] Last Admin: 02/28/19 11:28 Dose: 200 mg Non-Formulary Medication (Levetiracetam [Levetiracetam]) 750 mg PO BID [facility] Non-Formulary Medication ([place] Carbonate [Eskalith Cr]) 450 mg PO BID [facility] Multivit-Min/Fa/Lycopene/Lut [ Certavite Sr- Antioxidant TaOwn Med 1 each PO DAILY [facility] Last Admin: 02/28/19 11:30 Dose: 1 each Non-Formulary Medication (Olanzapine [Zyprexa]) 15 mg PO QPM [facility] Olanzapine (Zyprexa) 5 mg PO DAILY [facility] Last Admin: 02/28/19 11:31 Dose: 5 mg Quetiapine Fumarate (Seroquel) 50 mg PO BID@1700,2000 [facility] Sodium Chloride (Saline Flush) 10 ml FLUSH ASDIRECTED PRN PRN Reason: Keep Vein Open Last Admin: 02/28/19 11:44 Dose: 10 ml Discontinued Medications Acetaminophen (Tylenol) Confirm Administered Dose 650 mg .ROUTE .STK-MED ONE Stop: 02/28/19 08:19 Last Admin: 02/28/19 08:28 Dose: 650 mg Acetaminophen (Tylenol) Confirm Administered Dose 650 mg .ROUTE .STK-MED ONE Stop: 02/28/19 13:38 Last Admin: 02/28/19 14:02 Dose: Not Given Sodium Chloride (Normal Saline) 500 mls @ 999 mls/hr IV .BOLUS ONE Stop: 02/27/19 15:45 Last Admin: 02/27/19 15:50 Dose: 999 mls/hr Ondansetron HCl (Zofran Odt) Confirm Administered Dose 4 mg .ROUTE .STK-MED ONE Stop: 02/28/19 08:27 Last Admin: 02/28/19 08:30 Dose: 4 mg
[2019-02-28] MEDS ORDERED: QUETIAPINE 50 MG PO SCH (17:00)
[2019-02-28] MEDS ORDERED: OLANZAPINE 15 MG PO SCH (20:00)
[2019-03-02 04:09] LABS: IRON BIND.CAP.(TIBC) 338 ug/dL (250-450); IRON SATURATION 77 % (15-55); IRON, SERUM 259 ug/dL (38-169); UIBC 79 ug/dL (111-343)
== END 2019-02-28 14:30 ==
LOC: LB.CLINIC 07:58 → LB.MS 15:02 → UNDOADMOB 15:02 → LB.MS 15:15 → EEVIPCON 15:15
PROVIDERS: ADMIT Nurse Practitioner Family; ATTEND Nurse Practitioner Family
DX: R45.851 Suicidal ideations (principal); R44.0 Auditory hallucinations; T50.902A Poisoning by unspecified drugs, medicaments and biological substances, intentional self-harm, initial encounter; Z88.1 Allergy status to other antibiotic agents; Z79.899 Other long term (current) drug therapy
CPT/HCPCS: 36415; 80053; 80177; 80178; 80307; 81001; 82607; 83540; 83550; 84443; 85025; 93005; A0425; A0429; A9270-GY; G0378; G0480; J7040

== ENCOUNTER 2019-11-28 10:44 | Emergency (ER) | payer MEDICAID ==
[2019-11-28 10:57] VITALS: BP 170/102; PULSE 85
--- NOTE | 2019-11-29 15:03 | EDM.PDOC ---
ED HPI GENERAL MEDICAL PROBLEM - General Chief Complaint: General Stated Complaint: ER Time Seen by Provider: 11/28/19 11:00 Source of Information: Reports: Patient History Limitations: Reports: No Limitations - History of Present Illness INITIAL COMMENTS - FREE TEXT/NARRATIVE: This is a 29yo M with concerns of tightening muscles of b/l hands and tingling of the right arm. He states these symptoms only started today. He denies any recent medication changes or changes in diet or illness. He denies any injuries or other concerns. Patient did note he stopped supplementation of his Magnesium and Calcium. Onset: Sudden Duration: Hour(s):, Waxing/Waning Location: Reports: Upper Extremity, Left, Upper Extremity, Right Severity: Mild Improves with: Reports: None Worsens with: Reports: None Associated Symptoms: Reports: No Other Symptoms - Related Data Allergies Allergy/AdvReac Type Severity Reaction Status Date / Time clarithromycin Allergy Hives Verified 11/28/19 10:53 Home Meds: Home Meds Calcium Citrate/Vitamin D3 [Calcium Citrate + D] 1 each PO BID 12/10/13 [History ] Cholecalciferol (Vitamin D3) [D3-2000] 2,000 unit PO DAILY 12/10/13 [History] Magnesium Oxide [Magnesium] 400 mg PO DAILY 12/10/13 [History] Gabapentin [Neurontin] 800 mg PO TID 01/10/15 [History] lamoTRIgine [Lamictal] 200 mg PO BID 07/15/15 [History] Acetaminophen 1 - 2 mg PO QID PRN 11/10/18 [History] Ferrous Sulfate [Ferosul] 325 mg PO DAILY 11/10/18 [History] [place] Carbonate [Eskalith CR] 450 mg PO BID 11/10/18 [History] OLANZapine [Zyprexa] 15 mg PO QPM 11/10/18 [History] QUEtiapine [SEROquel] 50 mg PO BID@1700,2000 11/10/18 [History] hydrOXYzine HCL [hydrOXYzine] 50 mg PO Q6H PRN 11/10/18 [History] Benztropine Mesylate 0.5 mg PO BID 02/06/19 [History] Calcium Polycarbophil [Fiber-Tabs] 650 mg PO DAILY 02/06/19 [History] Cetirizine [ZyrTEC] 10 mg PO DAILY 02/06/19 [History] Cyanocobalamin (Vitamin B12) [Vitamin B12] 1,000 mcg IM ASDIRECTED 02/06/19 [ History] Levothyroxine 25 mcg PO ACBREAKFAST 02/06/19 [History] Multivit-Min/FA/Lycopen/Lutein [Certavite Sr with Lutein Tab] 1 each PO DAILY [History] OLANZapine [Olanzapine] 5 mg OP DAILY 02/06/19 [History] levETIRAcetam [Levetiracetam] 750 mg PO BID 02/06/19 [History] Past Medical History HEENT History: Reports: None Gastrointestinal History: Reports: None Genitourinary History: Reports: Renal Calculus Musculoskeletal History: Reports: Fracture Other Musculoskeletal History: R wrist Fx 03/15/2017 Neurological History: Reports: Concussion, Head Trauma, Seizure Psychiatric History: Reports: ADHD, Anxiety, Bipolar, Depression, Panic Attack, Suicide Attempt Other Psychiatric History: Was released from [facility] this week, inpatient psych. Pt refilled ativan 30 tabs today, bottle empty. suicide attempt 02/27/2019 Endocrine/Metabolic History: Reports: Diabetes, Type II Other Endocrine/Metabolic History: Hx of diabetes, glucose good now that has lost 190#. - Infectious Disease History Infectious Disease History: Reports: Chicken Pox - Past Surgical History HEENT Surgical History: Reports: Adenoidectomy, Oral Surgery, Tonsillectomy GI Surgical History: Reports: Appendectomy, Bariatric Procedure, Cholecystectomy , Hernia, Abdominal Musculoskeletal Surgical History: Reports: Other (See Below) Other Musculoskeletal Surgeries/Procedures:: Surgical fixation of R wrist Fx on 03/20/2017 Social & Family History - Family History Family Medical History: Noncontributory - Tobacco Use Smoking Status *Q: Unknown Ever Smoked Second Hand Smoke Exposure: No - Caffeine Use Caffeine Use: Reports: None Caffeine Use Comment: diet soda - Recreational Drug Use Recreational Drug Use: Yes ED ROS GENERAL - Review of Systems Review Of Systems: Comprehensive ROS is negative, except as noted in HPI. ED EXAM, GENERAL - Physical Exam Exam: See Below Exam Limited By: No Limitations General Appearance: Alert, WD/WN, No Apparent Distress Eye Exam: Bilateral Eye: EOMI, PERRL Ears: Normal External Exam Nose: Normal Inspection Throat/Mouth: Normal Inspection Head: Atraumatic, Normocephalic Neck: Normal Inspection, Supple, Non-Tender Respiratory/Chest: No Respiratory Distress, Lungs Clear, Normal Breath Sounds Cardiovascular: Normal Peripheral Pulses, Regular Rate, Rhythm Peripheral Pulses: 2+: Dorsalis Pedis (L), Dorsalis Pedis (R) GI/Abdominal: Normal Bowel Sounds Back Exam: Normal Inspection Extremities: Normal Inspection Neurological: Alert, Oriented, CN II-XII Intact Course - Vital Signs Last Recorded V/S: Last Vital Signs Temp 36.6 C 11/28/19 10:58 Pulse 85 11/28/19 10:58 Resp 16 11/28/19 10:58 BP 170/102 H 11/28/19 10:58 Pulse Ox 97 11/28/19 10:58 - Orders/Labs/Meds Labs: Laboratory Tests 11/28/19 11/28/19 11/28/19 Range/Units 11:11 11:11 15:18 WBC 5.2 D (4.0-11.0) K/uL RBC 4.35 L (4.50-6.50) M/uL Hgb 14.0 (13.0-18.0) g/dL Hct 42.0 (40.0-54.0) % MCV 97 H (76-96) fL MCH 32.2 H (27.0-32.0) pg MCHC 33.3 (31.0-35.0) g/dL RDW 12.1 (11.0-16.0) % Plt Count 218 D (150-400) K/uL MPV 10.3 H (6.0-10.0) fL Neut % (Auto) 59.5 (45.0-70.0) % Lymph % (Auto) 26.4 (20.0-40.0) % [place] % (Auto) 11.4 H (3.0-10.0) % Eos % (Auto) 2.3 (1.0-5.0) % Baso % (Auto) 0.4 (0.0-0.5) % Neut # (Auto) 3.09 (2.00-7.50) K/uL Lymph # (Auto) 1.37 L (1.50-4.00) K/uL [place] # (Auto) 0.59 (0.20-0.80) K/uL Eos # (Auto) 0.12 (0.04-0.40) K/uL Baso # (Auto) 0.02 (0.02-0.10) K/uL Sodium 139 (136-145) mmol/L Potassium 3.7 (3.5-5.1) mmol/L Chloride 102 (98-107) mmol/L Carbon Dioxide 29.9 (21.0-32.0) mmol/L Anion Gap 10.8 (5.0-15.0) mmol/L BUN 10 D (8-26) mg/dL Creatinine 0.98 (0.70-1.30) mg/dL Est Cr Clr Drug Dosing 113.80 mL/min Estimated GFR (MDRD) > 60 (>60) MLS/MIN BUN/Creatinine Ratio 10.2 (6-25) Glucose 106 H D (74-100) mg/dL Calcium 9.1 (8.5-10.1) mg/dL Magnesium 2.2 (1.8-2.4) mg/dL Total Bilirubin 0.2 D (0.0-1.0) mg/dL AST 23 (15-37) U/L ALT 43 (12-78) U/L Alkaline Phosphatase 97 (46-116) U/L Troponin I < 0.017 (0.000-0.060) ng/mL Total Protein 6.9 (6.4-8.2) g/dL Albumin 3.9 (3.4-5.0) g/dL Globulin 3.0 (2.2-4.2) g/dL Albumin/Globulin Ratio 1.3 (0.8-2.0) TSH, Ultra Sensitive 3.103 D (0.358-3.740) uIU/mL Departure - Departure Time of Disposition: 12:00 Disposition: Home, Self-Care 01 Condition: Good Clinical Impression: Tingling of right upper extremity - Discharge Information Referrals: PCP,None [Primary Care Provider] - Forms: ED Department Discharge Additional Instructions: Continue with supplements for Magnesium and Calcium as instructed by Dr. Hernandez. Drink plenty of fluids (water) and get plenty of rest. May also continue with Gatorade for fluid intake. Follow up in clinic as needed. Call with any questions. Sepsis Event Note - Evaluation Sepsis Screening Result: No Definite Risk - Problem List & Annotations (1) Tingling of right upper extremity SNOMED Code(s): 208276422, 317471622 Code(s): R20.2 - PARESTHESIA OF SKIN Status: Suspected - Problem List Review Problem List Initiated/Reviewed/Updated: Yes - Assessment/Plan Assessment:: Counseled on supportive care, conservative management, use of Magnesium and Calcium supplements and f/u in clinic/ER if symptoms persist or worsen.
== END 2019-11-28 12:05 | disposition home or self-care (01) ==
LOC: LB.ED 10:44
DX: R20.2 Paresthesia of skin (principal); F31.9 Bipolar disorder, unspecified; E11.9 Type 2 diabetes mellitus without complications; Z79.899 Other long term (current) drug therapy; Z88.1 Allergy status to other antibiotic agents
CPT/HCPCS: 36415; 80053; 83735; 84443; 84484; 85025; 93005; 99284-25; A0425; A0429

== ENCOUNTER 2020-03-26 19:10 | Emergency (ER) | payer MEDICAID ==
--- NOTE | 2020-03-26 19:49 | EDM.PDOC ---
ED HPI GENERAL MEDICAL PROBLEM - General Chief Complaint: Upper Extremity Injury/Pain Stated Complaint: R WRIST PAIN Time Seen by Provider: 03/26/20 19:40 Source of Information: Reports: Patient History Limitations: Reports: No Limitations - History of Present Illness INITIAL COMMENTS - FREE TEXT/NARRATIVE: This is a 30yo M with a recent fall and pseudoseizure. He notes he fell on his right wrist and back. He notes pain of the right wrist and lower left back. He denies any other complaints. No fever or chills, no chest pain or shortness of breath. No other symptoms or concerns. Duration: Resolved Prior to Arrival Location: Reports: Back, Upper Extremity, Right Quality: Reports: Ache Severity: Mild Improves with: Reports: None Worsens with: Reports: Movement - Related Data Allergies Allergy/AdvReac Type Severity Reaction Status Date / Time clarithromycin Allergy Hives Verified 11/28/19 10:53 Home Meds: Home Meds Calcium Citrate/Vitamin D3 [Calcium Citrate + D] 1 each PO BID 12/10/13 [History] Cholecalciferol (Vitamin D3) [D3-1999] 2,000 unit PO DAILY 12/10/13 [History] Magnesium Oxide [Magnesium] 400 mg PO DAILY 12/10/13 [History] Gabapentin [Neurontin] 800 mg PO TID 01/10/15 [History] lamoTRIgine [Lamictal] 200 mg PO BID 07/15/15 [History] Acetaminophen 1 - 2 mg PO QID PRN 11/10/18 [History] Ferrous Sulfate [Ferosul] 325 mg PO DAILY 11/10/18 [History] [place] Carbonate [Eskalith CR] 450 mg PO BID 11/10/18 [History] OLANZapine [Zyprexa] 15 mg PO QPM 11/10/18 [History] QUEtiapine [SEROquel] 50 mg PO BID@1700,2000 11/10/18 [History] hydrOXYzine HCL [hydrOXYzine] 50 mg PO Q6H PRN 11/10/18 [History] Benztropine Mesylate 0.5 mg PO BID 02/06/19 [History] Cetirizine [ZyrTEC] 10 mg PO DAILY 02/06/19 [History] Cyanocobalamin (Vitamin B12) [Vitamin B12] 1,000 mcg IM ASDIRECTED 02/06/19 [History] Levothyroxine 25 mcg PO ACBREAKFAST 02/06/19 [History] Multivit-Min/FA/Lycopen/Lutein [Certavite Sr with Lutein Tab] 1 each PO DAILY [History] OLANZapine [Olanzapine] 5 mg OP DAILY 02/06/19 [History] calcium polycarbophiL [Fiber-Tabs] 650 mg PO DAILY 02/06/19 [History] levETIRAcetam [Levetiracetam] 750 mg PO BID 02/06/19 [History] Past Medical History HEENT History: Reports: None Gastrointestinal History: Reports: None Genitourinary History: Reports: Renal Calculus Musculoskeletal History: Reports: Fracture Other Musculoskeletal History: R wrist Fx 03/15/2017 Neurological History: Reports: Concussion, Head Trauma, Seizure Psychiatric History: Reports: ADHD, Anxiety, Bipolar, Depression, Panic Attack, Suicide Attempt Other Psychiatric History: Was released from [facility] this week, inpatient psych. Pt refilled ativan 30 tabs today, bottle empty. suicide attempt 02/27/2019 Endocrine/Metabolic History: Reports: Diabetes, Type II Other Endocrine/Metabolic History: Hx of diabetes, glucose good now that has lost 190#. - Infectious Disease History Infectious Disease History: Reports: Chicken Pox - Past Surgical History HEENT Surgical History: Reports: Adenoidectomy, Oral Surgery, Tonsillectomy GI Surgical History: Reports: Appendectomy, Bariatric Procedure, Cholecystectomy, Hernia, Abdominal Musculoskeletal Surgical History: Reports: Other (See Below) Other Musculoskeletal Surgeries/Procedures:: Surgical fixation of R wrist Fx on 03/20/2017 Social & Family History - Family History Family Medical History: Noncontributory - Caffeine Use Caffeine Use: Reports: None Caffeine Use Comment: diet soda Review of Systems - Review of Systems Review Of Systems: Comprehensive ROS is negative, except as noted in HPI. ED EXAM, GENERAL - Physical Exam Exam: See Below Exam Limited By: No Limitations General Appearance: Alert, WD/WN, No Apparent Distress Eye Exam: Bilateral Eye: EOMI, PERRL Ears: Normal External Exam Nose: Normal Inspection Throat/Mouth: Normal Inspection Head: Atraumatic, Normocephalic Neck: Normal Inspection Respiratory/Chest: No Respiratory Distress, Lungs Clear, Normal Breath Sounds Cardiovascular: Normal Peripheral Pulses, Regular Rate, Rhythm GI/Abdominal: Normal Bowel Sounds Back Exam: Normal Inspection Extremities: Normal Inspection, Normal Range of Motion, Other (right wrist pain) Neurological: Alert, Oriented, CN II-XII Intact Course - Orders/Labs/Meds Orders: Active Orders 24 hr Category Date Time Status Wrist Comp Min 3V Rt [CR] Stat Exams 03/26/20 19:46 Ordered Meds: Medications Discontinued Medications Generic Name Dose Route Start Last Admin Trade Name Rubi PRN Reason Stop Dose Admin Ketorolac Tromethamine 60 mg 03/26/20 19:50 Toradol IM 03/26/20 19:51 ONETIME ONE - Re-Assessments/Exams Free Text/Narrative Re-Assessment/Exam: Immediately after patient's xray patient had another pseudoseizure event. He was able to converse and move with command while shaking. He was able to tell me that it was going to happen again and thereafter did not have any post-ictal state. Departure - Departure Time of Disposition: 20:27 Disposition: Home, Self-Care 01 Clinical Impression: Pseudoseizures, Back pain, Wrist pain, right - Discharge Information Forms: ED Department Discharge Care Plan Goals: Patient to be driven home by mother and rest. Counseled on no driving or working with machinery or sharp items. Discussed f/u in clinic. - Problem List & Annotations (1) Pseudoseizures SNOMED Code(s): 091948183 Code(s): F44.5 - CONVERSION DISORDER WITH SEIZURES OR CONVULSIONS Status: Acute (2) Back pain SNOMED Code(s): 420610670 Code(s): M54.9 - DORSALGIA, UNSPECIFIED Status: Acute Qualifiers: Back pain location: low back pain (3) Wrist pain, right SNOMED Code(s): 61306673 Code(s): M25.531 - PAIN IN RIGHT WRIST Status: Acute - Problem List Review Problem List Initiated/Reviewed/Updated: Yes - My Orders Last 24 Hours: My Active Orders 03/26/20 19:46 Wrist Comp Min 3V Rt [CR] Stat - Assessment/Plan Last 24 Hours: My Active Orders 03/26/20 19:46 Wrist Comp Min 3V Rt [CR] Stat Plan: Counseled on back pain and wrist care. Discussed supportive care and management and conservative therapy. Patient counseled on f/u in clinic for further management. Discussed seizure-like activity and for conservative therapy and f/u at this time.
[2020-03-26] MEDS ORDERED: Ketorolac 60 MG/2 ML SDV IM ONE (19:50)
[2020-03-27 07:38] VITALS: BP 135/73; PULSE 80
--- NOTE | 2020-03-27 17:34 | CR ---
DATE OF SERVICE: 03/26/20 CLINICAL DATA: Fall on wrist RIGHT WRIST: Comparison is made to a prior exam dated 03/15/17. There is a healed fracture through the distal radius with internal fixation. No acute abnormalities. No lytic or blastic bone lesions. [id number] [facility]
== END 2020-03-26 20:35 | disposition home or self-care (01) ==
LOC: LB.ED 19:10
DX: M25.531 Pain in right wrist (principal); M54.5 Low back pain; F31.9 Bipolar disorder, unspecified; F41.9 Anxiety disorder, unspecified; E11.9 Type 2 diabetes mellitus without complications; R56.9 Unspecified convulsions; Z88.1 Allergy status to other antibiotic agents; Z79.899 Other long term (current) drug therapy; W19.XXXA Unspecified fall, initial encounter
CPT/HCPCS: 73110; 96372; 99284; J1885

== ENCOUNTER 2020-04-12 14:23 | Emergency (ER) | payer MEDICAID, OTHER ==
[2020-04-12 17:27] VITALS: BP 160/93; PULSE 88
--- NOTE | 2020-04-12 19:30 | ER ---
REASON FOR EMERGENCY ROOM VISIT: Earache and cough. HISTORY: This 30-year-old man was seen by Dr. Hernandez via a telemedicine visit with complaints of a right earache 3 days ago, he was given a prescription for amoxicillin 875 mg b.i.d. that he started taking on start taking 2 days ago for what was felt to be most likely otitis media. At that time, he had a 5-day history of coughing that was mildly productive of greenish sputum and a right-sided earache. He also noted that for the past week or so he has had some anal discomfort and blood on the outside of his stool after having a bowel movement. He has no history of hemorrhoids and denies any history of constipation. Over the past couple of days, his earache has persisted and the pain reached the point where he wanted to come in and be seen today. He has not had any fever. His cough is unchanged. He denies any shortness of breath. He has not had any alterations in his sense of smell or taste, and he has not had any GI symptoms such as nausea, vomiting, or diarrhea. PAST MEDICAL HISTORY: His past medical history is quite extensive and includes, 1. Nephrolithiasis. 2. History of head trauma. 3. History of seizure disorder. 4. Bipolar disorder with history of depression. 5. History of prior suicide attempt. 6. Type 2 diabetes. 7. Appendectomy. 8. Bariatric surgery. 9. Cholecystectomy. 10.History of hernia repair. 11.T and A as a child. MEDICATIONS: His medications are quite extensive and are reviewed. Please see electronic medical record. They include the following, levetiracetam, lamotrigine, hydroxyzine, vitamins, olanzapine, Seroquel, lithium carbonate, levothyroxine, gabapentin, ferrous sulfate, cetirizine, benztropine mesylate, and acetaminophen p.r.n. ALLERGIES: CLARITHROMYCIN. REVIEW OF SYSTEMS: Pertinent positives and negatives as listed in the HPI. SOCIAL HISTORY: He has a significant psychiatric illness and lives at home with his mother. He does admit to occasional recreational drug use and is a smoker. PHYSICAL EXAMINATION: GENERAL: He is a pleasant man, in no acute distress. He does appear to be slightly anxious. VITAL SIGNS: He is afebrile. Blood pressure 160/93, heart rate is 88, respirations 20, O2 sats 98% on room air. HEENT: Head is normocephalic. He does appear to have a slight mild facial sunburn. There is no conjunctivitis. On examination of his ears, his left TM appears normal. His right TM is definitely erythematous and injected, consistent with otitis media. Oropharynx is normal. NECK: Supple. No adenopathy. CHEST: Clear to auscultation with no wheezes, rhonchi, or rales. CARDIAC: Regular rate without murmur or rub. ABDOMEN: Soft and nontender. It is obese. RECTAL: A rectal exam was performed because of his history of blood in his stool. He has quite a bit of tenderness in the anal canal. Nothing is palpable. His anal sphincter tone is quite markedly increased. He does have some soft, bledsoe stool without any evidence of gross blood on the examining finger. EXTREMITIES: Normal pulses. No edema. IMPRESSION: Otitis media with other upper respiratory symptoms. PLAN: We obtained a swab for COVID-19. Unfortunately, the point of care testing is not available now, so that will have to be sent out in the meantime. He was urged to stay to self quarantine himself until the results are back. I encouraged him to continue with his amoxicillin and should his symptoms not be improved within the next 2 days, he should give Dr. Hernandez's office a call and once again, he should remain at home until the results of his COVID-19 tests are back. He understands and agrees with this. All questions were answered. EDENILSON /[id number]
== END 2020-04-12 15:10 | disposition home or self-care (01) ==
LOC: LB.ED 14:23
DX: H66.91 Otitis media, unspecified, right ear (principal); R05 Cough; E11.9 Type 2 diabetes mellitus without complications; F31.9 Bipolar disorder, unspecified; G40.909 Epilepsy, unspecified, not intractable, without status epilepticus; F17.200 Nicotine dependence, unspecified, uncomplicated; Z88.1 Allergy status to other antibiotic agents; Z20.828 Contact with and (suspected) exposure to other viral communicable diseases
CPT/HCPCS: 99282; 99283; U0002

== ENCOUNTER 2020-05-08 16:17 | Emergency (ER) | payer MEDICAID, OTHER ==
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
[2020-05-08 16:57] VITALS: BP 150/100; PULSE 100
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
== END 2020-05-08 17:20 | disposition home or self-care (01) ==
LOC: LB.ED 16:17
DX: S82.001A Unspecified fracture of right patella, initial encounter for closed fracture (principal); S80.01XA Contusion of right knee, initial encounter; F41.9 Anxiety disorder, unspecified; F31.9 Bipolar disorder, unspecified; E11.9 Type 2 diabetes mellitus without complications; Z88.1 Allergy status to other antibiotic agents; X58.XXXA Exposure to other specified factors, initial encounter
CPT/HCPCS: 73562-RT; 99283; 99283-25

== ENCOUNTER 2020-05-10 07:38 | Emergency (ER) | payer MEDICAID, OTHER | END 2020-05-10 08:00 | disposition left against medical advice (07) | LOC: LB.ED 07:38 | DX: Z53.21 Procedure and treatment not carried out due to patient leaving prior to being seen by health care provider (principal) ==

== ENCOUNTER 2020-08-24 20:40 | Emergency (ER) | payer MEDICAID ==
[2020-08-24 21:12] VITALS: BP 165/98; PULSE 107
[2020-08-24] MEDS ORDERED: Ketorolac 60 MG/2 ML SDV IVPUSH ONE (21:19)
[2020-08-24] MEDS ORDERED: Prochlorperazine 10 MG in Sodium Chloride 0.9% 50 ML IV ONE (21:21)
[2020-08-24] MEDS ORDERED: Aluminum Hydroxide/Magnesium Hydroxide/Simethicone Susp 30 ML Cup PO ONE (21:23)
--- NOTE | 2020-08-24 21:30 | EDM.PDOC ---
ED HPI GENERAL MEDICAL PROBLEM - General Chief Complaint: General Stated Complaint: ABDOMINAL PAIN Time Seen by Provider: 08/24/20 21:00 Source of Information: Reports: Patient History Limitations: Reports: No Limitations - History of Present Illness INITIAL COMMENTS - FREE TEXT/NARRATIVE: pt presents to the ER with symptoms of upper abdominal pain he describes as "constant and intermittently sharp" this pain has been going on for about 5-6 weeks and he had a CT about 3wks ago showing no acute abnormalities. coinciding symptoms include nausea and vomiting periodically as well as intermittent diarrhea. pt denies fever, chills, weakness, dizzyness, lower abdominal pain, chest pain, SOB. Right Abdominal Pain Score (Numeric/FACES): 7 - Related Data Allergies Allergy/AdvReac Type Severity Reaction Status Date / Time clarithromycin Allergy Hives Verified 08/24/20 21:16 Home Meds: Home Meds Calcium Citrate/Vitamin D3 [Calcium Citrate + D] 1 each PO BID 12/10/13 [History] Cholecalciferol (Vitamin D3) [D3-1999] 2,000 unit PO DAILY 12/10/13 [History] Magnesium Oxide [Magnesium] 400 mg PO DAILY 12/10/13 [History] Gabapentin [Neurontin] 800 mg PO TID 01/10/15 [History] lamoTRIgine [Lamictal] 200 mg PO BID 07/15/15 [History] Acetaminophen 1 - 2 mg PO QID PRN 11/10/18 [History] Ferrous Sulfate [Ferosul] 325 mg PO DAILY 11/10/18 [History] [place] Carbonate [Eskalith CR] 450 mg PO BID 11/10/18 [History] OLANZapine [Zyprexa] 15 mg PO QPM 11/10/18 [History] QUEtiapine [SEROquel] 50 mg PO BID@1700,2000 11/10/18 [History] hydrOXYzine HCL [hydrOXYzine] 50 mg PO Q6H PRN 11/10/18 [History] Benztropine Mesylate 0.5 mg PO BID 02/06/19 [History] Cetirizine [ZyrTEC] 10 mg PO DAILY 02/06/19 [History] Cyanocobalamin (Vitamin B12) [Vitamin B12] 1,000 mcg IM ASDIRECTED 02/06/19 [History] Levothyroxine 25 mcg PO ACBREAKFAST 02/06/19 [History] Multivit-Min/FA/Lycopen/Lutein [Certavite Sr with Lutein Tab] 1 each PO DAILY 02/06/19 [History] OLANZapine [Olanzapine] 5 mg OP DAILY 02/06/19 [History] calcium polycarbophiL [Fiber-Tabs] 650 mg PO DAILY 02/06/19 [History] levETIRAcetam [Levetiracetam] 750 mg PO BID 02/06/19 [History] Prochlorperazine [Compazine] 10 mg PO Q6H PRN #20 tab 08/24/20 [Rx] Past Medical History HEENT History: Reports: None Gastrointestinal History: Reports: None Genitourinary History: Reports: Renal Calculus Musculoskeletal History: Reports: Fracture Other Musculoskeletal History: R wrist Fx 03/15/2017 Neurological History: Reports: Concussion, Head Trauma, Seizure Psychiatric History: Reports: ADHD, Anxiety, Bipolar, Depression, Panic Attack, Suicide Attempt Other Psychiatric History: Was released from [facility] this week, inpatient psych. Pt refilled ativan 30 tabs today, bottle empty. suicide attempt 02/27/2019 Endocrine/Metabolic History: Reports: Diabetes, Type II Other Endocrine/Metabolic History: Hx of diabetes, glucose good now that has lost 190#. - Infectious Disease History Infectious Disease History: Reports: Chicken Pox - Past Surgical History HEENT Surgical History: Reports: Adenoidectomy, Oral Surgery, Tonsillectomy GI Surgical History: Reports: Appendectomy, Bariatric Procedure, Cholecystectomy, Hernia, Abdominal Male Surgical History: Reports: None Endocrine Surgical History: Reports: None Musculoskeletal Surgical History: Reports: Other (See Below) Other Musculoskeletal Surgeries/Procedures:: Surgical fixation of R wrist Fx on 03/20/2017 Social & Family History - Family History Family Medical History: No Pertinent Family History - Tobacco Use Tobacco Use Status *Q: Former Tobacco User Used Tobacco, but Quit: Yes Month/Year Tobacco Last Used: May 2020 - Caffeine Use Caffeine Use: Reports: None Caffeine Use Comment: diet soda - Recreational Drug Use Recreational Drug Use: No ED ROS GENERAL - Review of Systems Review Of Systems: Comprehensive ROS is negative, except as noted in HPI. ED EXAM, GENERAL - Physical Exam Exam: See Below Exam Limited By: No Limitations General Appearance: Alert, WD/WN, No Apparent Distress Eye Exam: Bilateral Eye: EOMI, PERRL Throat/Mouth: Normal Voice, No Airway Compromise Neck: Normal Inspection, Non-Tender Respiratory/Chest: No Respiratory Distress, Lungs Clear, Normal Breath Sounds, No Accessory Muscle Use Cardiovascular: Normal Peripheral Pulses, Regular Rate, Rhythm, No Edema, No Murmur Peripheral Pulses: 2+: Radial (L), Radial (R) GI/Abdominal: Normal Bowel Sounds, Soft, Non-Tender, No Mass, Other (obese) Extremities: Normal Inspection, Normal Range of Motion, Non-Tender Neurological: Alert, Oriented, CN II-XII Intact, Normal Cognition, Normal Gait Psychiatric: Normal Affect, Normal Mood Skin Exam: Warm, Dry, Intact, No Rash Lymphatic: No Adenopathy Course - Vital Signs Last Recorded V/S: Last Vital Signs Temp 98.2 F 08/24/20 20:45 Pulse 107 H 08/24/20 21:11 Resp 18 08/24/20 21:11 BP 165/98 H 08/24/20 21:11 Pulse Ox 97 08/24/20 21:11 - Orders/Labs/Meds Orders: Active Orders 24 hr Category Date Time Status CBC WITH AUTO DIFF [HEME] Stat Lab 08/24/20 21:18 Ordered COMPREHENSIVE METABOLIC PN,CMP [CHEM] Stat Lab 08/24/20 21:18 Ordered LIPASE [CHEM] Stat Lab 08/24/20 21:19 Ordered Prochlorperazine [Compazine] 10 mg Med 08/24/20 21:21 Ordered Sodium Chloride 0.9% [Normal Saline] 50 ml IV ONETIME Medication Orders Prochlorperazine Edisylate 10 (mg/ Sodium Chloride) 52 mls @ 150 mls/hr IV ONETIME ONE Stop: 08/24/20 21:41 Meds: Medications Generic Name Dose Route Start Last Admin Trade Name Freq PRN Reason Stop Dose Admin Prochlorperazine Edisylate 10 52 mls @ 150 mls/hr 08/24/20 21:21 mg/ Sodium Chloride IV 08/24/20 21:41 ONETIME ONE Discontinued Medications Generic Name Dose Route Start Last Admin Trade Name Freq PRN Reason Stop Dose Admin Al Hydroxide/Mg Hydroxide 30 ml 08/24/20 21:23 Mag-Al Plus PO 08/24/20 21:24 ONETIME ONE Ketorolac Tromethamine 15 mg 08/24/20 21:19 Toradol IVPUSH 08/24/20 21:20 ONETIME ONE Departure - Departure Time of Disposition: 22:58 Disposition: Home, Self-Care 01 Condition: Good Clinical Impression: Abdominal pain - Discharge Information *PRESCRIPTION DRUG MONITORING PROGRAM REVIEWED*: Yes *COPY OF PRESCRIPTION DRUG MONITORING REPORT IN PATIENT HEMAL: No Referrals: PCP,None [Primary Care Provider] - Additional Instructions: follow up with your surgeon KEREN discuss with Dr. Hernandez on how long tramadol stays part of the plan. lab values look good and I'm currently not concerned for infection or acute processes. new antinausea medication sent to pharmacy. Sepsis Event Note (ED) - Evaluation Sepsis Screening Result: No Definite Risk - Focused Exam Vital Signs: Vital Signs Temp Pulse Resp BP Pulse Ox 08/24/20 21:11 107 H 18 165/98 H 97 08/24/20 20:45 98.2 F 114 H 20 177/102 H 98 - Problem List & Annotations (1) Abdominal pain SNOMED Code(s): 43292622 Code(s): R10.9 - UNSPECIFIED ABDOMINAL PAIN Status: Acute Current Visit: Yes Qualifiers: Abdominal location: epigastric Qualified Code(s): R10.13 - Epigastric pain - Problem List Review Problem List Initiated/Reviewed/Updated: Yes - My Orders Last 24 Hours: My Active Orders 08/24/20 21:18 CBC WITH AUTO DIFF [HEME] Stat COMPREHENSIVE METABOLIC PN,CMP [CHEM] Stat 08/24/20 21:19 LIPASE [CHEM] Stat 08/24/20 21:21 Prochlorperazine [Compazine] 10 mg Sodium Chloride 0.9% [Normal Saline] 50 ml IV ONETIME - Assessment/Plan Last 24 Hours: My Active Orders 08/24/20 21:18 CBC WITH AUTO DIFF [HEME] Stat COMPREHENSIVE METABOLIC PN,CMP [CHEM] Stat 08/24/20 21:19 LIPASE [CHEM] Stat 08/24/20 21:21 Prochlorperazine [Compazine] 10 mg Sodium Chloride 0.9% [Normal Saline] 50 ml IV ONETIME Plan: assessment: abdominal pain plan: follow up with your surgeon KEREN discuss with Dr. Hernandez on how long tramadol stays part of the plan. lab values look good and I'm currently not concerned for infection or acute processes. new antinausea medication sent to pharmacy. pt evaluated in ER in setting of COVID19 pandemic. differentials considered include unspecified dysfunction or side effect secondary to bariatric surgery, pancreatitis, reflux. most concerning is the dysfunction from bariatric surgery as pt appears non toxic, CMP and CBC within norm limits but has been having this discomfort for over a month without relief on its own. pt pain did resolve with medication in ER and nausea completely resolved as well. will provide pt medication regimen to take at home above what he is already taking, no refill on tramadol.
[2020-08-24] MEDS ORDERED: Prochlorperazine 10 MG/2 ML SDV IVPUSH ONE (21:41)
[2020-08-24] MEDS ORDERED: Lactated Ringers 1,000 ML IV ONE (21:43)
[2020-08-24] MEDS ORDERED: Prochlorperazine 10 MG/2 ML SDV ONE (21:54)
[2020-08-24] MEDS ORDERED: Ketorolac 30 MG/ML SDV ONE (21:55)
[2020-08-24] MEDS ORDERED: HYDROmorphone 2 MG/ML SDV IVPUSH ONE (22:15)
[2020-08-24] MEDS ORDERED: HYDROmorphone 2 MG/ML SDV ONE (22:26)
== END 2020-08-24 23:00 | disposition home or self-care (01) ==
LOC: LB.ED 20:40
DX: R10.11 Right upper quadrant pain (principal); R56.9 Unspecified convulsions; F31.9 Bipolar disorder, unspecified; F41.9 Anxiety disorder, unspecified; E11.9 Type 2 diabetes mellitus without complications; Z88.1 Allergy status to other antibiotic agents; Z79.899 Other long term (current) drug therapy; Z87.891 Personal history of nicotine dependence
CPT/HCPCS: 36415; 80053; 83690; 85025; 96374; 96375; 99284; A9270; J0780; J1170; J1885; J7120

== ENCOUNTER 2020-11-14 11:33 | Emergency (ER) | payer MEDICAID ==
[2020-11-14 12:02] VITALS: BP 132/74; PULSE 106
--- NOTE | 2020-11-14 14:32 | EDM.PDOC ---
ED HPI GENERAL MEDICAL PROBLEM - General Chief Complaint: General Stated Complaint: suicidal Time Seen by Provider: 11/14/20 13:00 - History of Present Illness INITIAL COMMENTS - FREE TEXT/NARRATIVE: 30 year old male known case of depression had some arguments with his mom's boy friend who is making him more depressed .He was walking to work today when he took a couple of fireball whiskey shots .He is depressed & anxious ,starts crying agitated due to his step dad .The patient very much agitated ,anxious crying .he also some h/o PTSD - suicidal ideation present but does not disclose plan & time .he said that he comfortable with hospital staff but he will be bad if he goes home. Unable to see his provider till next . Medication ; lithium ,Zyprexa ,clonazepam ,some vitamers He also takes Keppra & Lamictal at night he had positive h/o seizure disorder ,depression/suicidality & mood disorder denies fever ,N/V ,headache ,chest pain ,shortness of breath ,cough , abd pain Duration: Hour(s): (2) Severity: Severe Improves with: Reports: None Worsens with: Reports: None - Related Data Allergies Allergy/AdvReac Type Severity Reaction Status Date / Time clarithromycin Allergy Hives Verified 08/24/20 21:16 Home Meds: Home Meds RX: Calcium Citrate/Vitamin D3 [Calcium Citrate + D] 1 each PO BID 12/10/13 [History] RX: Cholecalciferol (Vitamin D3) [D3-2000] 2,000 unit PO DAILY 12/10/13 [History] RX: Magnesium Oxide [Magnesium] 400 mg PO DAILY 12/10/13 [History] RX: Gabapentin [Neurontin] 800 mg PO TID 01/10/15 [History] RX: lamoTRIgine [Lamictal] 200 mg PO BID 07/15/15 [History] RX: Acetaminophen 1 - 2 mg PO QID PRN 11/10/18 [History] RX: Ferrous Sulfate [Ferosul] 325 mg PO DAILY 11/10/18 [History] RX: Scissors Carbonate [Eskalith CR] 450 mg PO BID 11/10/18 [History] Benztropine Mesylate 0.5 mg PO BID 02/06/19 [History] Cyanocobalamin (Vitamin B12) [Vitamin B12] 1,000 mcg IM ASDIRECTED 02/06/19 [History] Levothyroxine 25 mcg PO ACBREAKFAST 02/06/19 [History] Multivit-Min/FA/Lycopen/Lutein [Certavite Sr with Lutein Tab] 1 each PO DAILY 02/06/19 [History] OLANZapine [Olanzapine] 5 mg OP DAILY 02/06/19 [History] Dextroamphetamine/Amphetamine [Adderall] 30 mg PO DAILY 11/14/20 [History] OLANZapine [Olanzapine] 20 mg PO BEDTIME 11/14/20 [History] Zolpidem Tartrate [Ambien] 1 tab PO BEDTIME 11/14/20 [History] clonazePAM [Clonazepam] 1 mg PO TID PRN 11/14/20 [History] levETIRAcetam [Keppra] 1 tab PO BID 11/14/20 [History] Past Medical History HEENT History: Reports: None Gastrointestinal History: Reports: None Genitourinary History: Reports: Renal Calculus Musculoskeletal History: Reports: Fracture Other Musculoskeletal History: R wrist Fx 03/15/2017 Neurological History: Reports: Concussion, Head Trauma, Seizure Psychiatric History: Reports: ADHD, Anxiety, Bipolar, Depression, Panic Attack, Suicide Attempt Other Psychiatric History: Was released [facility] this week, inpatient psych. Pt refilled ativan 30 tabs today, bottle empty. suicide attempt 02/27/2019 Endocrine/Metabolic History: Reports: Diabetes, Type II Other Endocrine/Metabolic History: Hx of diabetes, glucose good now that has lost 190#. - Infectious Disease History Infectious Disease History: Reports: Chicken Pox - Past Surgical History HEENT Surgical History: Reports: Adenoidectomy, Oral Surgery, Tonsillectomy GI Surgical History: Reports: Appendectomy, Bariatric Procedure, Cholecystectomy, Hernia, Abdominal Male Surgical History: Reports: None Endocrine Surgical History: Reports: None Musculoskeletal Surgical History: Reports: Other (See Below) Other Musculoskeletal Surgeries/Procedures:: Surgical fixation of R wrist Fx on 03/20/2017 Social & Family History - Family History Family Medical History: No Pertinent Family History - Tobacco Use Tobacco Use Status *Q: Never Tobacco User Second Hand Smoke Exposure: No - Caffeine Use Caffeine Use: Reports: Soda Caffeine Use Comment: diet soda - Recreational Drug Use Recreational Drug Use: No ED ROS GENERAL - Review of Systems Review Of Systems: See Below Constitutional: Reports: Weight Gain Respiratory: Reports: No Symptoms, Shortness of Breath, Wheezing, Cough, Sputum, Hemoptysis Cardiovascular: Reports: No Symptoms, Chest Pain, Dyspnea on Exertion, Edema, Orthopnea GI/Abdominal: Reports: No Symptoms, Abdominal Pain, Anorexia, Diarrhea Musculoskeletal: Reports: No Symptoms, Neck Pain, Arm Pain Skin: Reports: No Symptoms Neurological: Reports: Change in Speech Psychiatric: Reports: Agitation, Anxiety, Confusion, Depression, Suicidal Ideation (agitated ,anxius ,depressed & suicidal ideations ). Denies: Homicidal Ideation ED EXAM, GENERAL - Physical Exam Exam: See Below Exam Limited By: No Limitations Head: Atraumatic, Normocephalic Neck: Supple Respiratory/Chest: No Respiratory Distress, Lungs Clear, Normal Breath Sounds, No Accessory Muscle Use, Wheezing Cardiovascular: Normal Peripheral Pulses, Regular Rate, Rhythm, No Edema, No Gallop, Systolic Murmur Neurological: Oriented, CN II-XII Intact Psychiatric: Anxious, Depressed Mood, Tearful, Other (agitated ,depressed ,crying ,wants to kill himself ) Course - Vital Signs Text/Narrative:: 30 year old male brought to ER by ambulance due to agitation ,depression & suicidal thoughts. He had argument with step dad -this morning Vitals are normal [facility] system was activated & they evaluated him - advise some lab work They also wants wants lithium & Lamictal level - unable to perform these labs Alcohol level 254 E-reading provider advise 1 mg of clonazepam - the patient was cold down after this . They also advised to hold him for 24 hours .he also needs some type of behavioral therapy I spoke with dr walter at [facility] & he was ready to accept him for observation -He will also get some help from behavior therapy Disposition transfer to [facility] ER by ambulance condition at discharge stable Last Recorded V/S: Last Vital Signs Temp 98.4 F 11/14/20 11:33 Pulse 106 H 11/14/20 11:33 Resp 20 11/14/20 11:33 BP 132/74 11/14/20 11:33 Pulse Ox 100 11/14/20 11:33 - Orders/Labs/Meds Labs: Laboratory Tests 11/14/20 11/14/20 11/14/20 Range/Units 12:35 12:35 12:35 WBC (4.0-11.0) K/uL RBC (4.50-6.50) M/uL Hgb (13.0-18.0) g/dL Hct (40.0-54.0) % MCV (76-96) fL MCH (27.0-32.0) pg MCHC (31.0-35.0) g/dL RDW (11.0-16.0) % Plt Count (150-400) K/uL MPV (6.0-10.0) fL Neut % (Auto) (45.0-70.0) % Lymph % (Auto) (20.0-40.0) % [place] % (Auto) (3.0-10.0) % Eos % (Auto) (1.0-5.0) % Baso % (Auto) (0.0-0.5) % Neut # (Auto) (2.00-7.50) K/uL Lymph # (Auto) (1.50-4.00) K/uL [place] # (Auto) (0.20-0.80) K/uL Eos # (Auto) (0.04-0.40) K/uL Baso # (Auto) (0.02-0.10) K/uL Sodium 140 (136-145) mmol/L Potassium 4.4 (3.5-5.1) mmol/L Chloride 106 (98-107) mmol/L Carbon Dioxide 29.9 (21.0-32.0) mmol/L Anion Gap 8.5 (5.0-15.0) mmol/L BUN 13 D (8-26) mg/dL Creatinine 1.06 (0.70-1.30) mg/dL Est Cr Clr Drug Dosing 104.26 mL/min Estimated GFR (MDRD) > 60 (>60) MLS/MIN BUN/Creatinine Ratio 12.3 (6-25) Glucose 98 (74-100) mg/dL Calcium 8.7 (8.5-10.1) mg/dL Total Bilirubin 0.1 D (0.0-1.0) mg/dL AST 20 (15-37) U/L ALT 38 (12-78) U/L Alkaline Phosphatase 140 H (46-116) U/L Total Protein 7.5 (6.4-8.2) g/dL Albumin 4.1 (3.4-5.0) g/dL Globulin 3.4 (2.2-4.2) g/dL Albumin/Globulin Ratio 1.2 (0.8-2.0) Urine Opiates Screen (NEGATIVE) Ur Oxycodone Screen (NEGATIVE) Urine Methadone Screen (NEGATIVE) Acetaminophen 0.0 ug/mL Ur Barbiturates Screen (NEGATIVE) Ur Tricyclics Screen (NEGATIVE) Ur Phencyclidine Scrn (NEGATIVE) Ur Amphetamine Screen (NEGATIVE) U Methamphetamines Scrn (NEGATIVE) Urine MDMA Screen (NEGATIVE) U Benzodiazepines Scrn (NEGATIVE) U Cocaine Metab Screen (NEGATIVE) U Marijuana (THC) Screen (NEGATIVE) Ethyl Alcohol 254.0 H (<3.0) mg/dL SARS-CoV-2 RNA (CALLIE) (NEGATIVE) 11/14/20 11/14/20 11/14/20 Range/Units 12:35 12:40 15:18 WBC 5.5 (4.0-11.0) K/uL RBC 4.73 (4.50-6.50) M/uL Hgb 15.0 (13.0-18.0) g/dL Hct 44.8 (40.0-54.0) % MCV 95 (76-96) fL MCH 31.7 (27.0-32.0) pg MCHC 33.5 (31.0-35.0) g/dL RDW 12.5 (11.0-16.0) % Plt Count 223 (150-400) K/uL MPV 10.3 H (6.0-10.0) fL Neut % (Auto) 55.9 (45.0-70.0) % Lymph % (Auto) 32.7 (20.0-40.0) % Camb[place] % (Auto) 10.6 H (3.0-10.0) % Eos % (Auto) 0.4 L (1.0-5.0) % Baso % (Auto) 0.4 (0.0-0.5) % Neut # (Auto) 3.10 (2.00-7.50) K/uL Lymph # (Auto) 1.81 (1.50-4.00) K/uL Cambria # (Auto) 0.59 (0.20-0.80) K/uL Eos # (Auto) 0.02 L (0.04-0.40) K/uL Baso # (Auto) 0.02 (0.02-0.10) K/uL Sodium (136-145) mmol/L Potassium (3.5-5.1) mmol/L Chloride (98-107) mmol/L Carbon Dioxide (21.0-32.0) mmol/L Anion Gap (5.0-15.0) mmol/L BUN (8-26) mg/dL Creatinine (0.70-1.30) mg/dL Est Cr Clr Drug Dosing mL/min Estimated GFR (MDRD) (>60) MLS/MIN BUN/Creatinine Ratio (6-25) Glucose (74-100) mg/dL Calcium (8.5-10.1) mg/dL Total Bilirubin (0.0-1.0) mg/dL AST (15-37) U/L ALT (12-78) U/L Alkaline Phosphatase (46-116) U/L Total Protein (6.4-8.2) g/dL Albumin (3.4-5.0) g/dL Globulin (2.2-4.2) g/dL Albumin/Globulin Ratio (0.8-2.0) Urine Opiates Screen Negative (NEGATIVE) Ur Oxycodone Screen Negative (NEGATIVE) Urine Methadone Screen Negative (NEGATIVE) Acetaminophen ug/mL Ur Barbiturates Screen Negative (NEGATIVE) Ur Tricyclics Screen Negative (NEGATIVE) Ur Phencyclidine Scrn Negative (NEGATIVE) Ur Amphetamine Screen Negative (NEGATIVE) U Methamphetamines Scrn Negative (NEGATIVE) Urine MDMA Screen Negative (NEGATIVE) U Benzodiazepines Scrn Negative (NEGATIVE) U Cocaine Metab Screen Negative (NEGATIVE) U Marijuana (THC) Screen Negative (NEGATIVE) Ethyl Alcohol (<3.0) mg/dL SARS-CoV-2 RNA (CALLIE) Negative (NEGATIVE) Meds: Medications Discontinued Medications Generic Name Dose Route Start Last Admin Trade Name Freq PRN Reason Stop Dose Admin Clonazepam 1 mg 11/14/20 14:35 11/14/20 14:38 Klonopin PO 11/14/20 14:36 1 mg ONETIME ONE Administration Clonazepam Confirm 11/14/20 14:44 11/14/20 14:39 Klonopin Administered 11/14/20 14:45 Not Given Dose 1 mg .ROUTE .STK-MED ONE Departure - Departure Time of Disposition: 15:30 Disposition: DC/Tfer to Acute Hospital 02 Clinical Impression: Suicidal ideations, Depression Alcohol intoxication Qualifiers: Complication of substance-induced condition: uncomplicated Qualified Code(s): F10.920 - Alcohol use, unspecified with intoxication, uncomplicated - Discharge Information *PRESCRIPTION DRUG MONITORING PROGRAM REVIEWED*: No *COPY OF PRESCRIPTION DRUG MONITORING REPORT IN PATIENT HEMAL: No Instructions: Alcohol Intoxication, [id number], Major Depressive Disorder, Adult, Alcohol Intoxication, Supporting Someone With Depression Referrals: PCP,None [Primary Care Provider] - Forms: ED Department Discharge Sepsis Event Note (ED) - Evaluation Sepsis Screening Result: No Definite Risk - Focused Exam Vital Signs: Vital Signs Temp Pulse Resp BP Pulse Ox 11/14/20 11:33 98.4 F 106 H 20 132/74 100 - Problem List & Annotations (1) Alcohol intoxication SNOMED Code(s): 94050863 Code(s): F10.929 - ALCOHOL USE, UNSPECIFIED WITH INTOXICATION, UNSPECIFIED Status: Acute (2) Suicidal ideation SNOMED Code(s): 7512081 Code(s): R45.851 - SUICIDAL IDEATIONS Status: Acute (3) Depression SNOMED Code(s): 77479203 Code(s): F32.9 - MAJOR DEPRESSIVE DISORDER, SINGLE EPISODE, UNSPECIFIED Status: Acute - My Orders Last 24 Hours: discharge him to at [facility] for depression ,suicidal ideation & alcohol ideations After clearance medically ,he will seek help from behavior therapy unit .
[2020-11-14] MEDS: ClonazePAM 0.5 MG Tab PO ONE (14:38)
[2020-11-14] MEDS: ClonazePAM 0.5 MG Tab ONE (14:39)
== END 2020-11-14 16:09 ==
LOC: EEVIPCON 11:33 → LB.ED 11:33
DX: F32.9 Major depressive disorder, single episode, unspecified (principal); F10.120 Alcohol abuse with intoxication, uncomplicated; E11.9 Type 2 diabetes mellitus without complications; G40.909 Epilepsy, unspecified, not intractable, without status epilepticus; Y90.8 Blood alcohol level of 240 mg/100 ml or more; Z88.1 Allergy status to other antibiotic agents; Z79.899 Other long term (current) drug therapy; Z20.822 Contact with and (suspected) exposure to COVID-19
CPT/HCPCS: 36415; 80053; 80143; 80307; 85025; 87635; 93005; 99285; A0425; A0429; A9270; U0002

== ENCOUNTER 2020-11-20 13:42 | Emergency (ER) | payer MEDICAID ==
[2020-11-20] MEDS: diphenhydrAMINE 50 MG/ML SDV IVPUSH ONE (13:45)
[2020-11-20] MEDS: Haloperidol Lactate 5 MG/ML SDV IVPUSH ONE (13:45)
[2020-11-20] MEDS: LORazepam 2 MG/ML SDV IVPUSH ONE ×2 (15:25→15:28)
[2020-11-20] MEDS: LORazepam 2 MG/ML SDV ONE (15:28)
[2020-11-20 15:37] VITALS: BP 108/68; PULSE 91
--- NOTE | 2020-11-20 15:43 | EDM.PDOC ---
ED HPI GENERAL MEDICAL PROBLEM - General Chief Complaint: General Stated Complaint: LACERATIONS Time Seen by Provider: 11/20/20 13:42 Source of Information: Reports: Patient History Limitations: Reports: Combative/Threatening, Intoxication, Uncooperative - History of Present Illness INITIAL COMMENTS - FREE TEXT/NARRATIVE: 30 nyear old male with extensive psych history presents to ED with laceration to dorsal side of left hand. Patient is a poor historian, unsure of how he sustained the laceration. Denies SI. He is very agitated and combative spraying blood everywhere. Patient arrived with a friend who states the patient cut his hand with a knife cutting an onion, however the patient denies that. Onset: Today Location: Reports: Upper Extremity, Left Quality: Reports: Sharp Severity: Moderate Improves with: Reports: None Worsens with: Reports: Movement Associated Symptoms: Reports: No Other Symptoms Right Hand Pain Score (Numeric/FACES): 7 - Related Data Allergies Allergy/AdvReac Type Severity Reaction Status Date / Time clarithromycin Allergy Hives Verified 11/20/20 15:09 Home Meds: Home Meds Calcium Citrate/Vitamin D3 [Calcium Citrate + D] 1 each PO BID 12/10/13 [History] Cholecalciferol (Vitamin D3) [D3-2000] 2,000 unit PO DAILY 12/10/13 [History] Magnesium Oxide [Magnesium] 400 mg PO DAILY 12/10/13 [History] Gabapentin [Neurontin] 800 mg PO TID 01/10/15 [History] lamoTRIgine [Lamictal] 200 mg PO BID 07/15/15 [History] Acetaminophen 1 - 2 mg PO QID PRN 11/10/18 [History] Ferrous Sulfate [Ferosul] 325 mg PO DAILY 11/10/18 [History] Archer Carbonate [Eskalith CR] 450 mg PO BID 11/10/18 [History] Benztropine Mesylate 0.5 mg PO BID 02/06/19 [History] Cyanocobalamin (Vitamin B12) [Vitamin B12] 1,000 mcg IM ASDIRECTED 02/06/19 [History] Levothyroxine 25 mcg PO ACBREAKFAST 02/06/19 [History] Multivit-Min/FA/Lycopen/Lutein [Certavite Sr with Lutein Tab] 1 each PO DAILY 02/06/19 [History] OLANZapine [Olanzapine] 5 mg OP DAILY 02/06/19 [History] Dextroamphetamine/Amphetamine [Adderall] 30 mg PO DAILY 11/14/20 [History] OLANZapine [Olanzapine] 20 mg PO BEDTIME 11/14/20 [History] Zolpidem Tartrate [Ambien] 1 tab PO BEDTIME 11/14/20 [History] clonazePAM [Clonazepam] 1 mg PO TID PRN 11/14/20 [History] levETIRAcetam [Keppra] 1 tab PO BID 11/14/20 [History] Past Medical History HEENT History: Reports: None Gastrointestinal History: Reports: None Genitourinary History: Reports: Renal Calculus Musculoskeletal History: Reports: Fracture Other Musculoskeletal History: R wrist Fx 03/15/2017 Neurological History: Reports: Concussion, Head Trauma, Seizure Psychiatric History: Reports: ADHD, Anxiety, Bipolar, Depression, Panic Attack, Suicide Attempt Other Psychiatric History: Was released from [facility] this week, inpatient psych. Pt refilled ativan 30 tabs today, bottle empty. suicide attempt 02/27/2019 Endocrine/Metabolic History: Reports: Diabetes, Type II Other Endocrine/Metabolic History: Hx of diabetes, glucose good now that has lost 190#. - Infectious Disease History Infectious Disease History: Reports: Chicken Pox - Past Surgical History HEENT Surgical History: Reports: Adenoidectomy, Oral Surgery, Tonsillectomy GI Surgical History: Reports: Appendectomy, Bariatric Procedure, Cholecystectomy, Hernia, Abdominal Male Surgical History: Reports: None Endocrine Surgical History: Reports: None Musculoskeletal Surgical History: Reports: Other (See Below) Other Musculoskeletal Surgeries/Procedures:: Surgical fixation of R wrist Fx on 03/20/2017 Social & Family History - Family History Family Medical History: No Pertinent Family History - Caffeine Use Caffeine Use: Reports: Soda Caffeine Use Comment: diet soda ED ROS GENERAL - Review of Systems Review Of Systems: Unable To Obtain Reason Not Obtained: patient combative and uncooperative, put in restraints for saftey Musculoskeletal: Reports: Hand Pain Skin: Reports: Wound Psychiatric: Reports: Agitation, Mood Lability, Other (patient is combative, attempting to kick and ) ED EXAM, GENERAL - Physical Exam Exam: Not Obtained Reason Not Obtained: patient agressive, fighting, kicking, police called Exam Limited By: Uncooperative General Appearance: Alert Head: Atraumatic Neck: Full Range of Motion Respiratory/Chest: No Respiratory Distress Peripheral Pulses: 3+: Radial (L), Radial (R) Back Exam: Full Range of Motion Extremities: Normal Range of Motion Neurological: Alert Skin Exam: Warm, Wound/Incision Course - Vital Signs Last Recorded V/S: Last Vital Signs Temp 97 F 11/20/20 15:35 Pulse 91 11/20/20 15:35 Resp 18 11/20/20 15:35 BP 108/68 11/20/20 15:35 Pulse Ox 91 L 11/20/20 15:35 - Orders/Labs/Meds Orders: Active Orders 24 hr Category Date Time Status Vaccines to be Administered [RC] PER UNIT ROUTINE Care 11/20/20 15:44 Active Labs: Laboratory Tests 11/20/20 11/20/20 11/20/20 Range/Units 14:30 14:30 14:30 WBC 7.3 D (4.0-11.0) K/uL RBC 4.32 L (4.50-6.50) M/uL Hgb 13.7 (13.0-18.0) g/dL Hct 40.7 (40.0-54.0) % MCV 94 (76-96) fL MCH 31.7 (27.0-32.0) pg MCHC 33.7 (31.0-35.0) g/dL RDW 12.3 (11.0-16.0) % Plt Count 237 (150-400) K/uL MPV 10.5 H (6.0-10.0) fL Sodium 143 (136-145) mmol/L Potassium 3.1 L D (3.5-5.1) mmol/L Chloride 107 (98-107) mmol/L Carbon Dioxide 24.1 (21.0-32.0) mmol/L Anion Gap 15.0 (5.0-15.0) mmol/L BUN 11 (8-26) mg/dL Creatinine 0.85 (0.70-1.30) mg/dL Est Cr Clr Drug Dosing 130.02 mL/min Estimated GFR (MDRD) > 60 (>60) MLS/MIN BUN/Creatinine Ratio 12.9 (6-25) Glucose 93 (74-100) mg/dL Calcium 8.3 L (8.5-10.1) mg/dL Total Bilirubin 0.1 (0.0-1.0) mg/dL AST 20 (15-37) U/L ALT 35 (12-78) U/L Alkaline Phosphatase 124 H (46-116) U/L Total Protein 6.7 (6.4-8.2) g/dL Albumin 3.7 (3.4-5.0) g/dL Globulin 3.0 (2.2-4.2) g/dL Albumin/Globulin Ratio 1.2 (0.8-2.0) Urine Opiates Screen Negative (NEGATIVE) Ur Oxycodone Screen Negative (NEGATIVE) Urine Methadone Screen Negative (NEGATIVE) Ur Barbiturates Screen Negative (NEGATIVE) Ur Tricyclics Screen Negative (NEGATIVE) Ur Phencyclidine Scrn Negative (NEGATIVE) Ur Amphetamine Screen Negative (NEGATIVE) U Methamphetamines Scrn Negative (NEGATIVE) Urine MDMA Screen Negative (NEGATIVE) U Benzodiazepines Scrn Negative (NEGATIVE) U Cocaine Metab Screen Negative (NEGATIVE) U Marijuana (THC) Screen Negative (NEGATIVE) Ethyl Alcohol 351.0 H* (<3.0) mg/dL SARS-CoV-2 RNA (CALLIE) (NEGATIVE) 11/20/20 Range/Units 14:30 WBC (4.0-11.0) K/uL RBC (4.50-6.50) M/uL Hgb (13.0-18.0) g/dL Hct (40.0-54.0) % MCV (76-96) fL MCH (27.0-32.0) pg MCHC (31.0-35.0) g/dL RDW (11.0-16.0) % Plt Count (150-400) K/uL MPV (6.0-10.0) fL Sodium (136-145) mmol/L Potassium (3.5-5.1) mmol/L Chloride (98-107) mmol/L Carbon Dioxide (21.0-32.0) mmol/L Anion Gap (5.0-15.0) mmol/L BUN (8-26) mg/dL Creatinine (0.70-1.30) mg/dL Est Cr Clr Drug Dosing mL/min Estimated GFR (MDRD) (>60) MLS/MIN BUN/Creatinine Ratio (6-25) Glucose (74-100) mg/dL Calcium (8.5-10.1) mg/dL Total Bilirubin (0.0-1.0) mg/dL AST (15-37) U/L ALT (12-78) U/L Alkaline Phosphatase (46-116) U/L Total Protein (6.4-8.2) g/dL Albumin (3.4-5.0) g/dL Globulin (2.2-4.2) g/dL Albumin/Globulin Ratio (0.8-2.0) Urine Opiates Screen (NEGATIVE) Ur Oxycodone Screen (NEGATIVE) Urine Methadone Screen (NEGATIVE) Ur Barbiturates Screen (NEGATIVE) Ur Tricyclics Screen (NEGATIVE) Ur Phencyclidine Scrn (NEGATIVE) Ur Amphetamine Screen (NEGATIVE) U Methamphetamines Scrn (NEGATIVE) Urine MDMA Screen (NEGATIVE) U Benzodiazepines Scrn (NEGATIVE) U Cocaine Metab Screen (NEGATIVE) U Marijuana (THC) Screen (NEGATIVE) Ethyl Alcohol (<3.0) mg/dL SARS-CoV-2 RNA (CALLIE) Negative (NEGATIVE) Meds: Medications Discontinued Medications Generic Name Dose Route Start Last Admin Trade Name Rubi PRN Reason Stop Dose Admin Diphenhydramine HCl 50 mg 11/20/20 13:45 11/20/20 13:45 Benadryl IVPUSH 11/20/20 13:46 50 mg ONETIME ONE Administration Diphtheria/Tetanus/Acell Pertussis 0.5 ml 11/20/20 15:44 11/20/20 15:45 Boostrix IM 11/20/20 15:45 0.5 ml .ONCE ONE Administration Haloperidol Lactate 5 mg 11/20/20 13:45 11/20/20 13:45 Haldol IVPUSH 11/20/20 13:46 5 mg ONETIME ONE Administration Lorazepam Confirm 11/20/20 15:24 11/20/20 15:28 Ativan Administered 11/20/20 15:25 Not Given Dose 2 mg .ROUTE .STK-MED ONE Lorazepam 1 mg 11/20/20 15:16 11/20/20 15:28 Ativan IVPUSH 11/20/20 15:17 1 mg ONETIME ONE Administration Lorazepam 2 mg 11/20/20 13:45 11/20/20 15:25 Ativan IVPUSH 11/20/20 13:46 2 mg ONETIME ONE Administration Departure - Departure Time of Disposition: 16:29 Disposition: DC/Tfer to [facility] 02 Clinical Impression: Laceration of left hand, complicated Qualifiers: Encounter type: initial encounter Qualified Code(s): S61.412A - Laceration without foreign body of left hand, initial encounter - Discharge Information *PRESCRIPTION DRUG MONITORING PROGRAM REVIEWED*: Not Applicable *COPY OF PRESCRIPTION DRUG MONITORING REPORT IN PATIENT HEMAL: Not Applicable Referrals: PCP,None [Primary Care Provider] - Forms: ED Department Discharge Sepsis Event Note (ED) - Evaluation Sepsis Screening Result: No Definite Risk - Focused Exam Vital Signs: Vital Signs Temp Pulse Resp BP Pulse Ox 11/20/20 15:35 97 F 91 18 108/68 91 L 11/20/20 14:55 98.3 F 89 18 98/56 L 98 - My Orders Last 24 Hours: My Active Orders 11/20/20 15:44 Vaccines to be Administered [RC] PER UNIT ROUTINE - Assessment/Plan Last 24 Hours: My Active Orders 11/20/20 15:44 Vaccines to be Administered [RC] PER UNIT ROUTINE Plan: Patient was placed in restraints LL, RL, RA while Anne Marie STEVENS held pressure on left hand. Patient continues to yell and be combative, medications ordered IM. Restraints removed after the patient calmed, restraints on for 20 minuted. CMS remained intact. Called [facility] to transfer patient, they do not have a hand specialist. [place] [facility] called Dr. Porter in ED, he is accepting the patient I will keep the laceration open, suture the bleeding artery and pressure dress for transport to [facility]. Laceration assessed, anesthetized with 1% lidocaine 5.5cm left hand vertical deep laceration, patient states is hand is numb, observed that patient is able to move all fingers but won't when asked. Arterial spray noted, artery clamped and sutured with 1 4.0 prolene stitch to control bleeding for transport.
[2020-11-20] MEDS: Diphtheria,Pertussis(Acell),Tetanus Vaccine 0.5 ML SDV IM ONE (15:45)
== END 2020-11-20 16:08 ==
LOC: LB.ED 13:42
DX: S61.412A Laceration without foreign body of left hand, initial encounter (principal); E11.9 Type 2 diabetes mellitus without complications; Z23 Encounter for immunization; Z20.822 Contact with and (suspected) exposure to COVID-19; Z88.1 Allergy status to other antibiotic agents; Z79.899 Other long term (current) drug therapy; W26.0XXA Contact with knife, initial encounter
CPT/HCPCS: 12002; 36415; 80053; 80307; 85027; 90471; 90715; 96374; 96375; 99284-25; J1200; J1630; J2060; U0002

== ENCOUNTER 2020-11-26 16:50 | Emergency (ER) | payer MEDICAID ==
[2020-11-26 17:01] VITALS: BP 148/99; PULSE 108
--- NOTE | 2020-11-26 17:37 | EDM.PDOCBH ---
ED HPI GENERAL MEDICAL PROBLEM - General Chief Complaint: Behavioral/Psych Stated Complaint: MENTAL Time Seen by Provider: 11/26/20 17:25 Source of Information: Reports: Patient History Limitations: Reports: No Limitations - History of Present Illness INITIAL COMMENTS - FREE TEXT/NARRATIVE: patient presented to the ER with a c/o depression and suicidal thoughts. no actual plan but reports he might jump in front of a car. Reports a h/o bipolar, depression, anxiety and some how long mental history. was admitted to OSH last for behavioral problems was seen and evaluated by tele medicine today by his psychiatrist who deemed he need to be admitted to mental health facility. Patient here volunteering and wants this - Related Data Allergies Allergy/AdvReac Type Severity Reaction Status Date / Time clarithromycin Allergy Hives Verified 11/26/20 16:56 Home Meds: Home Meds Calcium Citrate/Vitamin D3 [Calcium Citrate + D] 1 each PO BID 12/10/13 [History] Cholecalciferol (Vitamin D3) [D3-2000] 2,000 unit PO DAILY 12/10/13 [History] Magnesium Oxide [Magnesium] 400 mg PO DAILY 12/10/13 [History] Gabapentin [Neurontin] 800 mg PO TID 01/10/15 [History] lamoTRIgine [Lamictal] 200 mg PO BID 07/15/15 [History] Acetaminophen 1 - 2 mg PO QID PRN 11/10/18 [History] Ferrous Sulfate [Ferosul] 325 mg PO DAILY 11/10/18 [History] [place] Carbonate [Eskalith CR] 450 mg PO BID 11/10/18 [History] Benztropine Mesylate 0.5 mg PO BID 02/06/19 [History] Cyanocobalamin (Vitamin B12) [Vitamin B12] 1,000 mcg IM ASDIRECTED 02/06/19 [History] Levothyroxine 25 mcg PO ACBREAKFAST 02/06/19 [History] Multivit-Min/FA/Lycopen/Lutein [Certavite Sr with Lutein Tab] 1 each PO DAILY 02/06/19 [History] OLANZapine [Olanzapine] 5 mg OP DAILY 02/06/19 [History] Dextroamphetamine/Amphetamine [Adderall] 30 mg PO DAILY 11/14/20 [History] OLANZapine [Olanzapine] 20 mg PO BEDTIME 11/14/20 [History] Zolpidem Tartrate [Ambien] 1 tab PO BEDTIME 11/14/20 [History] clonazePAM [Clonazepam] 1 mg PO TID PRN 11/14/20 [History] levETIRAcetam [Keppra] 1 tab PO BID 11/14/20 [History] Past Medical History HEENT History: Reports: None Gastrointestinal History: Reports: None Genitourinary History: Reports: Renal Calculus Musculoskeletal History: Reports: Fracture Other Musculoskeletal History: R wrist Fx 03/15/2017 Neurological History: Reports: Concussion, Head Trauma, Seizure Psychiatric History: Reports: ADHD, Anxiety, Bipolar, Depression, Panic Attack, Suicide Attempt Other Psychiatric History: Was released from [facility] this week, inpatient psych. Pt refilled ativan 30 tabs today, bottle empty. suicide attempt 02/27/2019 Endocrine/Metabolic History: Reports: Diabetes, Type II Other Endocrine/Metabolic History: Hx of diabetes, glucose good now that has lost 190#. - Infectious Disease History Infectious Disease History: Reports: Chicken Pox - Past Surgical History HEENT Surgical History: Reports: Adenoidectomy, Oral Surgery, Tonsillectomy GI Surgical History: Reports: Appendectomy, Bariatric Procedure, Cholecystectomy, Hernia, Abdominal Male Surgical History: Reports: None Endocrine Surgical History: Reports: None Musculoskeletal Surgical History: Reports: Other (See Below) Other Musculoskeletal Surgeries/Procedures:: Surgical fixation of R wrist Fx on 03/20/2017 Social & Family History - Family History Family Medical History: No Pertinent Family History - Caffeine Use Caffeine Use: Reports: Soda Caffeine Use Comment: diet soda ED ROS GENERAL - Review of Systems Review Of Systems: See Below Constitutional: Reports: No Symptoms HEENT: Reports: No Symptoms Respiratory: Reports: No Symptoms Cardiovascular: Reports: No Symptoms GI/Abdominal: Reports: No Symptoms : Reports: No Symptoms Musculoskeletal: Reports: No Symptoms Skin: Reports: No Symptoms ED EXAM, BEHAVIORAL HEALTH - Physical Exam Exam: See Below Exam Limited By: No Limitations General Appearance: Alert, No Apparent Distress, Other (seems very relaxed under benzo effect) Head: Atraumatic Respiratory/Chest: No Respiratory Distress Cardiovascular: Normal Peripheral Pulses GI/Abdominal: Normal Bowel Sounds Neurological: Alert, Normal Mood/Affect, CN II-XII Intact, Normal Cognition Psychiatric: Alert, Normal Affect, Normal Cognition COURSE, BEHAVIORAL HEALTH COMP - Course Vital Signs: Last Vital Signs Temp 36.4 C 11/26/20 16:51 Pulse 108 H 11/26/20 16:51 Resp 16 11/26/20 16:51 BP 148/99 H 11/26/20 16:51 Pulse Ox 96 11/26/20 16:51 Orders, Labs, Meds: Active Orders 24 hr Category Date Time Status EKG Documentation Completion [RC] ASDIRECTED Care 11/26/20 17:10 Active ACETAMINOPHEN [CHEM] Stat Lab 11/26/20 17:08 Ordered BASIC METABOLIC PANEL,BMP [CHEM] Stat Lab 11/26/20 17:08 Ordered CBC WITH AUTO DIFF [HEME] Stat Lab 11/26/20 17:08 Ordered CORONAVIRUS COVID-19 RAPID [MOLEC] Stat Lab 11/26/20 17:08 Ordered DRUG SCREEN, URINE [URCHEM] Stat Lab 11/26/20 17:06 Ordered LITHIUM (ESKALITH(R)), SERUM Stat Lab 11/26/20 17:21 Ordered TSH ULTRASENSITIVE [CHEM] Stat Lab 11/26/20 17:20 Ordered EKG 12 Lead [EK] Routine Ther 11/26/20 17:09 Ordered Departure - Departure Time of Disposition: 17:35 Disposition: Home, Self-Care 01 Condition: Good Clinical Impression: Depressive disorder, Suicidal ideations - Discharge Information *PRESCRIPTION DRUG MONITORING PROGRAM REVIEWED*: Not Applicable *COPY OF PRESCRIPTION DRUG MONITORING REPORT IN PATIENT HEMAL: Not Applicable Referrals: PCP,None [Primary Care Provider] - Sepsis Event Note (ED) - Evaluation Sepsis Screening Result: No Definite Risk - Focused Exam Vital Signs: Vital Signs Temp Pulse Resp BP Pulse Ox 11/26/20 16:51 36.4 C 108 H 16 148/99 H 96 - Problem List & Annotations (1) Suicidal ideation SNOMED Code(s): 0414270 Code(s): R45.851 - SUICIDAL IDEATIONS Status: Acute Priority: Medium Current Visit: Yes (2) Depression SNOMED Code(s): 88266074 Code(s): F32.9 - MAJOR DEPRESSIVE DISORDER, SINGLE EPISODE, UNSPECIFIED Status: Acute Priority: Medium Current Visit: No Qualifiers: Depression Type: major depressive disorder Major depression recurrence: recurrent Active/Remission status: currently active Major depression episode severity: unspecified Qualified Code(s): F33.9 - Major depressive disorder, recurrent, unspecified - Problem List Review Problem List Initiated/Reviewed/Updated: Yes - My Orders Last 24 Hours: My Active Orders 11/26/20 17:06 DRUG SCREEN, URINE [URCHEM] Stat 11/26/20 17:08 ACETAMINOPHEN [CHEM] Stat BASIC METABOLIC PANEL,BMP [CHEM] Stat CBC WITH AUTO DIFF [HEME] Stat CORONAVIRUS COVID-19 RAPID [MOLEC] Stat 11/26/20 17:09 EKG 12 Lead [EK] Routine 11/26/20 17:10 EKG Documentation Completion [RC] ASDIRECTED 11/26/20 17:20 TSH ULTRASENSITIVE [CHEM] Stat 11/26/20 17:21 LITHIUM (ESKALITH(R)), SERUM Stat - Assessment/Plan Last 24 Hours: My Active Orders 11/26/20 17:06 DRUG SCREEN, URINE [URCHEM] Stat 11/26/20 17:08 ACETAMINOPHEN [CHEM] Stat BASIC METABOLIC PANEL,BMP [CHEM] Stat CBC WITH AUTO DIFF [HEME] Stat CORONAVIRUS COVID-19 RAPID [MOLEC] Stat 11/26/20 17:09 EKG 12 Lead [EK] Routine 11/26/20 17:10 EKG Documentation Completion [RC] ASDIRECTED 11/26/20 17:20 TSH ULTRASENSITIVE [CHEM] Stat 11/26/20 17:21 LITHIUM (ESKALITH(R)), SERUM Stat Plan: - labs were ordered - EKG - WNL, NSR patient cooperative search for placement was initiated
== END 2020-11-26 21:25 ==
LOC: LB.ED 16:50
DX: F32.9 Major depressive disorder, single episode, unspecified (principal); E11.9 Type 2 diabetes mellitus without complications; Z88.1 Allergy status to other antibiotic agents; Z79.899 Other long term (current) drug therapy; Z20.822 Contact with and (suspected) exposure to COVID-19
CPT/HCPCS: 36415; 80048; 80143; 80178; 80307; 84443; 85025; 93005; 99285; 99285-25; A0425; A0429; U0002

== ENCOUNTER 2021-03-16 19:34 | Emergency (ER) | payer MEDICAID ==
[2021-03-16] MEDS: LORazepam 1 MG Tab PO ONE (19:45)
--- NOTE | 2021-03-16 21:52 | ER ---
HISTORY OF PRESENT ILLNESS: A 31-year-old male who comes in by ambulance after having some seizure activity at his place of employment, which is [employer]. He had a brief episode and he states he felt fine. He had another brief episode when he got into the ambulance. The patient tells me that he is not having any activity at this time and he did not want to come in. He is on medications. 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 The patient's seizure medications are Keppra, Lamictal, and clonazepam. He tells me he is taking the medications, but clonazepam does not seem to help him, so he does not take that one. The patient denies any injuries tonight and states he just wants to go home and relax. OBJECTIVE: GENERAL APPEARANCE: The patient is awake and alert. No obvious distress. VITAL SIGNS: Reviewed as listed. HEENT: Head is normocephalic. There is no sign of head or neck injury. The patient has full and unguarded range of motion of his head and neck area. Eyes; pupils equal, round, and reactive to light. EOMs are intact. Oral mucous membranes moist. LUNGS: Clear. CARDIAC: Heart sounds distinct without murmurs. SKIN: Warm and dry. EXTREMITIES: The patient can move all extremities without any discomfort. DIAGNOSIS: Seizure activity versus pseudoseizure. TREATMENT PLAN: We will give him Ativan 1 mg p.o. here. He will go home and rest tonight. I do want the patient to follow up with his primary care provider to see if he can have some medication adjustment as needed per their direction. The patient agrees to do this and has no further questions. CRS/MODL /[id number]
[2021-03-17 01:50] VITALS: BP 172/107; PULSE 105
== END 2021-03-16 19:54 | disposition home or self-care (01) ==
LOC: LB.ED 19:34
DX: R56.9 Unspecified convulsions (principal)
CPT/HCPCS: 99284; A9270-GY

== ENCOUNTER 2021-04-04 20:05 | Emergency (ER) | payer MEDICAID ==
[2021-04-04] MEDS ORDERED: LORazepam 2 MG/ML SDV IM ONE (20:11)
[2021-04-04] MEDS ORDERED: LORazepam 2 MG/ML SDV IVPUSH ONE ×2 (20:29→20:38)
[2021-04-04] MEDS ORDERED: levETIRAcetam 1,000 MG in Sodium Chloride 0.9% 100 ML IV ONE (20:40)
[2021-04-04] MEDS ORDERED: diazePAM 5 MG/ML MDV IV ONE ×3 (21:08→22:48)
[2021-04-04] MEDS ORDERED: Orphenadrine 60 MG/2 ML Inj IM ONE (21:40)
[2021-04-04] MEDS ORDERED: Morphine 4 MG/ML VIAL IVPUSH ONE (22:16)
--- NOTE | 2021-04-05 00:30 | EDM.PDOC ---
ED HPI GENERAL MEDICAL PROBLEM - General Chief Complaint: Neuro Symptoms/Deficits Stated Complaint: SEIZURE Time Seen by Provider: 04/04/21 20:10 Source of Information: Reports: Patient, EMS History Limitations: Reports: No Limitations - History of Present Illness INITIAL COMMENTS - FREE TEXT/NARRATIVE: presented to the ER by EMS due to seizures. h/o seizures for which he is on Lamictal - reports he has been taking them. Currently alert and oriented. last seizure convulsion was 30 min ago - but lasted for 15 seconds. He reports that he gets them often - almost on a daily basis but recently been exacerbated due to anxiery and back pain flare up. no fever or chills, no weakness or numbness Back Pain Score (Numeric/FACES): 8 - Related Data Allergies Allergy/AdvReac Type Severity Reaction Status Date / Time banana Allergy Other Verified 03/17/21 01:51 clarithromycin Allergy Hives Verified 03/17/21 01:51 Home Meds: Home Meds Calcium Citrate/Vitamin D3 [Calcium Citrate + D] 1 each PO BID 12/10/13 [History] Cholecalciferol (Vitamin D3) [D3-2000] 2,000 unit PO DAILY 12/10/13 [History] Magnesium Oxide [Magnesium] 400 mg PO DAILY 12/10/13 [History] Gabapentin [Neurontin] 800 mg PO TID 01/10/15 [History] lamoTRIgine [Lamictal] 200 mg PO BID 07/15/15 [History] Acetaminophen 1 - 2 mg PO QID PRN 11/10/18 [History] Ferrous Sulfate [Ferosul] 325 mg PO DAILY 11/10/18 [History] [place] Carbonate [Eskalith CR] 450 mg PO BID 11/10/18 [History] Benztropine Mesylate 0.5 mg PO BID 02/06/19 [History] Cyanocobalamin (Vitamin B12) [Vitamin B12] 1,000 mcg IM ASDIRECTED 02/06/19 [History] Levothyroxine 25 mcg PO ACBREAKFAST 02/06/19 [History] Multivit-Min/FA/Lycopen/Lutein [Certavite Sr with Lutein Tab] 1 each PO DAILY 02/06/19 [History] OLANZapine [Olanzapine] 5 mg OP DAILY 02/06/19 [History] Dextroamphetamine/Amphetamine [Adderall] 30 mg PO DAILY 11/14/20 [History] OLANZapine [Olanzapine] 20 mg PO BEDTIME 11/14/20 [History] Zolpidem Tartrate [Ambien] 1 tab PO BEDTIME 11/14/20 [History] clonazePAM [Clonazepam] 1 mg PO TID PRN 11/14/20 [History] levETIRAcetam [Keppra] 1 tab PO BID 11/14/20 [History] Past Medical History HEENT History: Reports: None Gastrointestinal History: Reports: None Genitourinary History: Reports: Renal Calculus Musculoskeletal History: Reports: Fracture Other Musculoskeletal History: R wrist Fx 03/15/2017 Neurological History: Reports: Concussion, Head Trauma, Seizure Psychiatric History: Reports: ADHD, Anxiety, Bipolar, Depression, Panic Attack, Suicide Attempt Other Psychiatric History: Was released from [facility] this week, inpatient psych. Pt refilled ativan 30 tabs today, bottle empty. suicide attempt 02/27/2019 Endocrine/Metabolic History: Reports: Diabetes, Type II Other Endocrine/Metabolic History: Hx of diabetes, glucose good now that has l ost 190#. - Infectious Disease History Infectious Disease History: Reports: Chicken Pox - Past Surgical History HEENT Surgical History: Reports: Adenoidectomy, Oral Surgery, Tonsillectomy GI Surgical History: Reports: Appendectomy, Bariatric Procedure, Cholecystectomy, Hernia, Abdominal Male Surgical History: Reports: None Endocrine Surgical History: Reports: None Musculoskeletal Surgical History: Reports: Other (See Below) Other Musculoskeletal Surgeries/Procedures:: Surgical fixation of R wrist Fx on 03/20/2017 Social & Family History - Family History Family Medical History: No Pertinent Family History - Tobacco Use Tobacco Use Status *Q: Current Every Day Tobacco User Years of Tobacco use: 5 Packs/Tins Daily: 0.2 - Caffeine Use Caffeine Use: Reports: Soda Caffeine Use Comment: diet soda - Recreational Drug Use Recreational Drug Use: No ED ROS GENERAL - Review of Systems Review Of Systems: See Below Constitutional: Reports: No Symptoms HEENT: Reports: No Symptoms Respiratory: Reports: No Symptoms Cardiovascular: Reports: No Symptoms GI/Abdominal: Reports: No Symptoms Musculoskeletal: Reports: Back Pain - Physical Exam Exam: See Below Exam Limited By: No Limitations General Appearance: Alert, WD/WN, No Apparent Distress Eye Exam: Bilateral Eye: EOMI, PERRL Ears: Normal External Exam Nose: Normal Inspection Head Exam: Atraumatic, Normocephalic Respiratory/Chest: No Respiratory Distress, Lungs Clear Cardiovascular: Normal Peripheral Pulses, Regular Rate, Rhythm, No Edema GI/Abdominal: Normal Bowel Sounds, Soft, Non-Tender Neuro Exam (Abbreviated): Alert, Oriented, Normal Cognition, No Motor/Sensory Deficits Extremities: Normal Inspection, Normal Range of Motion Psychiatric: Normal Affect, Normal Mood Skin Exam: Warm Course - Vital Signs Last Recorded V/S: Last Vital Signs Temp Pulse 66 04/05/21 00:39 Resp 18 04/05/21 00:39 BP 129/69 04/05/21 00:39 Pulse Ox 92 L 04/05/21 00:39 - Orders/Labs/Meds Labs: Laboratory Tests 04/04/21 04/04/21 Range/Units 20:40 20:40 WBC 7.5 D (4.0-11.0) K/uL RBC 4.46 L (4.50-6.50) M/uL Hgb 13.9 (13.0-18.0) g/dL Hct 42.2 (40.0-54.0) % MCV 95 (76-96) fL MCH 31.2 (27.0-32.0) pg MCHC 32.9 (31.0-35.0) g/dL RDW 13.4 (11.0-16.0) % Plt Count 225 (150-400) K/uL MPV 10.3 H (6.0-10.0) fL Sodium 141 (136-145) mmol/L Potassium 4.1 (3.5-5.1) mmol/L Chloride 102 (98-107) mmol/L Carbon Dioxide 28.1 D (21.0-32.0) mmol/L Anion Gap 15.0 (5.0-15.0) mmol/L BUN 16 (8-26) mg/dL Creatinine 0.99 (0.70-1.30) mg/dL Est Cr Clr Drug Dosing TNP Estimated GFR (MDRD) > 60 (>60) MLS/MIN BUN/Creatinine Ratio 16.2 (6-25) Glucose 105 H D (74-100) mg/dL Calcium 8.5 (8.5-10.1) mg/dL Meds: Medications Discontinued Medications Generic Name Dose Route Start Last Admin Trade Name Freq PRN Reason Stop Dose Admin Diazepam 5 mg 07/04/21 21:08 04/04/21 21:08 Diazepam 5 Mg/Ml Mdv IV 04/04/21 21:09 5 mg ONETIME ONE Administration Diazepam 5 mg 04/04/21 21:38 04/04/21 21:41 Diazepam 5 Mg/Ml Mdv IV 04/04/21 21:39 5 mg ONETIME ONE Administration Diazepam 5 mg 04/04/21 22:48 04/04/21 22:50 Diazepam 5 Mg/Ml Mdv IV 04/04/21 22:49 5 mg ONETIME ONE Administration Levetiracetam 1,000 mg/ Sodium 110 mls @ 400 mls/hr 04/04/21 20:40 04/04/21 20:50 Chloride IV 04/04/21 20:54 400 mls/hr ONETIME ONE Administration Lorazepam 2 mg 04/04/21 20:11 04/04/21 20:21 Lorazepam 2 Mg/Ml Sdv IM 04/04/21 20:12 2 mg ONETIME ONE Administration Lorazepam 2 mg 04/04/21 20:29 04/04/21 20:30 Lorazepam 2 Mg/Ml Sdv IVPUSH 04/04/21 20:30 2 mg ONETIME ONE Administration Lorazepam 2 mg 04/04/21 20:38 04/04/21 20:49 Lorazepam 2 Mg/Ml Sdv IVPUSH 04/04/21 20:39 2 mg ONETIME ONE Administration Lorazepam 2 mg 04/05/21 00:54 04/05/21 00:55 Lorazepam 2 Mg/Ml Sdv IVPUSH 04/05/21 00:55 2 mg ONETIME ONE Administration Lorazepam 2 mg 04/05/21 01:01 04/05/21 02:05 Lorazepam 2 Mg/Ml Sdv IVPUSH 04/05/21 01:02 Not Given ONETIME ONE Morphine Sulfate 4 mg 04/04/21 22:16 04/04/21 22:18 Morphine 4 Mg/Ml Vial IVPUSH 04/04/21 22:17 4 mg ONETIME ONE Administration Orphenadrine Citrate 60 mg 04/04/21 21:40 04/04/21 21:45 Orphenadrine 60 Mg/2 Ml Inj IM 04/04/21 21:41 60 mg ONETIME ONE Administration Phenobarbital 150 mg 04/05/21 01:01 04/05/21 02:05 Phenobarbital Sodium 130 Mg/Ml Sdv IVPUSH 04/05/21 01:02 Not Given ONETIME ONE - Re-Assessments/Exams Free Text/Narrative Re-Assessment/Exam: IV lines was started while in the ER he had around 5 short episodes of convulsions lasting around 15 seconds - after which he return to his normal mental baseline - talking normally. was given multiple doses of IV Ativan, Valium and IV Keppra 1000mg. was also asking for something for phis back pain - was given Morphine. But it was noted that patient is more concerned about getting narcotics for his back pain than for his seizures. Patient reports that he has been admitted in the past at OSH for the same reason. labs were ordered - no acute findings he maintained good airways protection and O2 sat while in the ER. discussed the case with the hospitalist at [facility] who accepted the oh sullivan Departure - Departure Time of Disposition: 01:10 Disposition: DC/Tfer to Acute Hospital 02 Clinical Impression: Status epilepticus - Discharge Information *PRESCRIPTION DRUG MONITORING PROGRAM REVIEWED*: Not Applicable *COPY OF PRESCRIPTION DRUG MONITORING REPORT IN PATIENT HEMAL: Not Applicable Referrals: PCP,None [Primary Care Provider] - Forms: ED Department Discharge - Problem List & Annotations (1) Status epilepticus SNOMED Code(s): 118221113 Code(s): G40.901 - EPILEPSY, UNSP, NOT INTRACTABLE, WITH STATUS EPILEPTICUS Status: Acute Priority: Medium - Problem List Review Problem List Initiated/Reviewed/Updated: Yes - Assessment/Plan Plan: seizure control with IV meds transfer to OSH by [facility]
[2021-04-05 00:39] VITALS: BP 129/69; PULSE 66
[2021-04-05] MEDS ORDERED: LORazepam 2 MG/ML SDV IVPUSH ONE ×2 (00:54→01:01)
[2021-04-05] MEDS ORDERED: PHENobarbital Sodium 130 MG/ML SDV IVPUSH ONE (01:01)
== END 2021-04-05 01:28 ==
LOC: LB.ED 20:05
DX: G40.901 Epilepsy, unspecified, not intractable, with status epilepticus (principal); E11.9 Type 2 diabetes mellitus without complications; Z79.899 Other long term (current) drug therapy; Z88.1 Allergy status to other antibiotic agents; Z91.018 Allergy to other foods; Z72.0 Tobacco use
CPT/HCPCS: 36415; 80048; 85027; 96365; 96372; 96374; 96375; 96376; 99285; A0425; A0429; J1953; J2060; J2270; J2360; J3360

== ENCOUNTER 2021-04-15 20:35 | Emergency (ER) | payer MEDICAID ==
[2021-04-15] MEDS: LORazepam 1 MG Tab PO ONE (21:32)
[2021-04-15] MEDS ORDERED: LORazepam 1 MG Tab ONE (22:00)
[2021-04-16 07:01] VITALS: BP 137/84; PULSE 88
--- NOTE | 2021-04-16 08:52 | CR ---
DATE OF SERVICE: 04/15/21 CLINICAL DATA: SOB. PORTABLE CHEST: Comparison made to a prior exam dated 09/08/20. The heart size is normal. The lungs are clear. No pneumothorax. No pleural effusions. No evidence of acute intrathoracic disease. [id number] [facility]
--- NOTE | 2021-04-16 10:55 | EDM.PDOC ---
ED HPI GENERAL MEDICAL PROBLEM - General Chief Complaint: Respiratory Problem Stated Complaint: difficulty breathing Time Seen by Provider: 04/15/21 20:45 - History of Present Illness INITIAL COMMENTS - FREE TEXT/NARRATIVE: Patient states he has had shortness of breath and anxiety issues for the last couple of days. It seems like is worse when he lays down. Patient has not been sick, or coughing. He tells me that he was recently flown out of here to another facility for seizure issues, and they removed some of his medications. He is supposed to be following up with his primary care provider soon, but has not done this yet. - Related Data Allergies Allergy/AdvReac Type Severity Reaction Status Date / Time banana Allergy Other Verified 04/16/21 06:46 clarithromycin Allergy Hives Verified 04/16/21 06:46 Home Meds: Home Meds Calcium Citrate/Vitamin D3 [Calcium Citrate + D] 1 each PO BID 12/10/13 [History] Cholecalciferol (Vitamin D3) [D3-2000] 2,000 unit PO DAILY 12/10/13 [History] Magnesium Oxide [Magnesium] 400 mg PO DAILY 12/10/13 [History] Gabapentin [Neurontin] 800 mg PO TID 01/10/15 [History] lamoTRIgine [Lamictal] 200 mg PO BID 07/15/15 [History] Acetaminophen 1 - 2 mg PO QID PRN 11/10/18 [History] Ferrous Sulfate [Ferosul] 325 mg PO DAILY 11/10/18 [History] [place] Carbonate [Eskalith CR] 450 mg PO BID 11/10/18 [History] Benztropine Mesylate 0.5 mg PO BID 02/06/19 [History] Cyanocobalamin (Vitamin B12) [Vitamin B12] 1,000 mcg IM ASDIRECTED 02/06/19 [History] Levothyroxine 25 mcg PO ACBREAKFAST 02/06/19 [History] Multivit-Min/FA/Lycopen/Lutein [Certavite Sr with Lutein Tab] 1 each PO DAILY 02/06/19 [History] OLANZapine [Olanzapine] 5 mg OP DAILY 02/06/19 [History] Dextroamphetamine/Amphetamine [Adderall] 30 mg PO DAILY 11/14/20 [History] OLANZapine [Olanzapine] 20 mg PO BEDTIME 11/14/20 [History] Zolpidem Tartrate [Ambien] 1 tab PO BEDTIME 11/14/20 [History] clonazePAM [Clonazepam] 1 mg PO TID PRN 11/14/20 [History] levETIRAcetam [Keppra] 1 tab PO BID 11/14/20 [History] Past Medical History HEENT History: Reports: None Gastrointestinal History: Reports: None Genitourinary History: Reports: Renal Calculus Musculoskeletal History: Reports: Fracture Other Musculoskeletal History: R wrist Fx 03/15/2017 Neurological History: Reports: Concussion, Head Trauma, Seizure Psychiatric History: Reports: ADHD, Anxiety, Bipolar, Depression, Panic Attack, Suicide Attempt Other Psychiatric History: Was released from [facility] this week, inpatient psych. Pt refilled ativan 30 tabs today, bottle empty. suicide attempt 02/27/2019 Endocrine/Metabolic History: Reports: Diabetes, Type II Other Endocrine/Metabolic History: Hx of diabetes, glucose good now that has lost 190#. - Infectious Disease History Infectious Disease History: Reports: Chicken Pox - Past Surgical History HEENT Surgical History: Reports: Adenoidectomy, Oral Surgery, Tonsillectomy GI Surgical History: Reports: Appendectomy, Bariatric Procedure, Cholecystectomy, Hernia, Abdominal Male Surgical History: Reports: None Endocrine Surgical History: Reports: None Musculoskeletal Surgical History: Reports: Other (See Below) Other Musculoskeletal Surgeries/Procedures:: Surgical fixation of R wrist Fx on 03/20/2017 Social & Family History - Family History Family Medical History: No Pertinent Family History - Tobacco Use Tobacco Use Status *Q: Current Status Unknown - Caffeine Use Caffeine Use: Reports: Soda Caffeine Use Comment: diet soda ED ROS GENERAL - Review of Systems Review Of Systems: Comprehensive ROS is negative, except as noted in HPI. Cardiovascular: Reports: Other (SOB worsens with lying down.) Psychiatric: Reports: Anxiety (That has gotten worse the last couple days.) ED EXAM, GENERAL - Physical Exam Exam: See Below Respiratory/Chest: Other (mils SOB noted at rest.) Psychiatric: Anxious Course - Vital Signs Last Recorded V/S: Last Vital Signs Temp 98.1 F 04/15/21 20:40 Pulse 88 04/15/21 21:21 Resp 18 04/15/21 21:21 BP 137/84 04/15/21 21:21 Pulse Ox 97 04/15/21 21:21 - Orders/Labs/Meds Labs: Laboratory Tests 04/15/21 04/15/21 Range/Units 21:00 21:20 WBC 5.3 D (4.0-11.0) K/uL RBC 4.40 L (4.50-6.50) M/uL Hgb 13.8 (13.0-18.0) g/dL Hct 41.3 (40.0-54.0) % MCV 94 (76-96) fL MCH 31.4 (27.0-32.0) pg MCHC 33.4 (31.0-35.0) g/dL RDW 13.0 (11.0-16.0) % Plt Count 234 (150-400) K/uL MPV 10.5 H (6.0-10.0) fL Neut % (Auto) 42.1 L (45.0-70.0) % Lymph % (Auto) 43.5 H (20.0-40.0) % [place] % (Auto) 12.5 H (3.0-10.0) % Eos % (Auto) 1.3 (1.0-5.0) % Baso % (Auto) 0.6 H (0.0-0.5) % Neut # (Auto) 2.23 (2.00-7.50) K/uL Lymph # (Auto) 2.30 (1.50-4.00) K/uL [place] # (Auto) 0.66 (0.20-0.80) K/uL Eos # (Auto) 0.07 (0.04-0.40) K/uL Baso # (Auto) 0.03 (0.02-0.10) K/uL Sodium 142 (136-145) mmol/L Potassium 3.9 (3.5-5.1) mmol/L Chloride 105 (98-107) mmol/L Carbon Dioxide 28.3 (21.0-32.0) mmol/L Anion Gap 12.6 (5.0-15.0) mmol/L BUN 9 D (8-26) mg/dL Creatinine 0.81 (0.70-1.30) mg/dL Est Cr Clr Drug Dosing TNP Estimated GFR (MDRD) > 60 (>60) MLS/MIN BUN/Creatinine Ratio 11.1 (6-25) Glucose 104 H (74-100) mg/dL Calcium 8.7 (8.5-10.1) mg/dL Total Bilirubin 0.1 (0.0-1.0) mg/dL AST 20 (15-37) U/L ALT 41 (12-78) U/L Alkaline Phosphatase 137 H (46-116) U/L Total Protein 6.8 (6.4-8.2) g/dL Albumin 3.6 (3.4-5.0) g/dL Globulin 3.2 (2.2-4.2) g/dL Albumin/Globulin Ratio 1.1 (0.8-2.0) Meds: Medications Discontinued Medications Generic Name Dose Route Start Last Admin Trade Name Freq PRN Reason Stop Dose Admin Lorazepam 1 mg 04/15/21 21:12 04/15/21 21:32 Lorazepam 1 Mg Tab PO 04/15/21 21:13 1 mg ONETIME ONE Administration - Re-Assessments/Exams Free Text/Narrative Re-Assessment/Exam: 04/16/21 10:54 Ativan 1 mg was given p.o. The patient was monitored for about 30 minutes while waiting for lab results. At this point he states he is feeling much better and he looks more relaxed. Lab results are good/normal and the chest x-ray is unremarkable. Departure - Departure Time of Disposition: 21:50 Disposition: Home, Self-Care 01 Condition: Good Clinical Impression: Anxiety - Discharge Information *PRESCRIPTION DRUG MONITORING PROGRAM REVIEWED*: Not Applicable *COPY OF PRESCRIPTION DRUG MONITORING REPORT IN PATIENT HEMAL: Not Applicable Instructions: Managing Anxiety, Adult Referrals: PCP,None [Primary Care Provider] - Forms: ED Department Discharge Additional Instructions: Ativan as directed. follow up as discussed with Dr Hernandez or his nurse in AM. Sepsis Event Note (ED) - Evaluation Sepsis Screening Result: No Definite Risk
== END 2021-04-15 22:28 | disposition home or self-care (01) ==
LOC: LB.ED 20:35
DX: F41.9 Anxiety disorder, unspecified (principal); E11.9 Type 2 diabetes mellitus without complications; Z88.1 Allergy status to other antibiotic agents; Z91.018 Allergy to other foods; Z79.899 Other long term (current) drug therapy
CPT/HCPCS: 36415; 71045; 80053; 85025; 99285-25; A9270-GY

== ENCOUNTER 2021-05-07 17:50 | Emergency (ER) | payer MEDICAID ==
[2021-05-07] MEDS ORDERED: LORazepam 1 MG Tab PO ONE (17:54)
[2021-05-07 17:59] VITALS: BP 126/82; PULSE 120
[2021-05-07] MEDS ORDERED: Sodium Chloride 0.9% 10 ML Syringe FLUSH PRN (18:07)
--- NOTE | 2021-05-07 18:13 | EDM.PDOC ---
ED HPI GENERAL MEDICAL PROBLEM - General Chief Complaint: General Stated Complaint: "voices" Time Seen by Provider: 05/07/21 17:50 Source of Information: Reports: Patient History Limitations: Reports: No Limitations - History of Present Illness INITIAL COMMENTS - FREE TEXT/NARRATIVE: pt presents to the ER stating symptoms of visual and audio hallucinations. pt states audio hallucinations are telling him to do self harm. pt states "hearing the voices makes me want to kill myself." pt states he called crisis team who recommended pt to be evaluated in the ER. he denies fever, chills, nausea, vomiting. states medical history of bipolar, anxiety, suicidal ideation and inpatient stay in [facility]. - Related Data Allergies Allergy/AdvReac Type Severity Reaction Status Date / Time banana Allergy Other Verified 04/16/21 06:46 clarithromycin Allergy Hives Verified 04/16/21 06:46 Home Meds: Home Meds Calcium Citrate/Vitamin D3 [Calcium Citrate + D] 1 each PO BID 12/10/13 [History] Cholecalciferol (Vitamin D3) [D3-2000] 2,000 unit PO DAILY 12/10/13 [History] Magnesium Oxide [Magnesium] 400 mg PO DAILY 12/10/13 [History] Gabapentin [Neurontin] 800 mg PO TID 01/10/15 [History] lamoTRIgine [Lamictal] 200 mg PO BID 07/15/15 [History] Acetaminophen 1 - 2 mg PO QID PRN 11/10/18 [History] Ferrous Sulfate [Ferosul] 325 mg PO DAILY 11/10/18 [History] [place] Carbonate [Eskalith CR] 450 mg PO BID 11/10/18 [History] Benztropine Mesylate 0.5 mg PO BID 02/06/19 [History] Cyanocobalamin (Vitamin B12) [Vitamin B12] 1,000 mcg IM ASDIRECTED 02/06/19 [History] Levothyroxine 25 mcg PO ACBREAKFAST 02/06/19 [History] Multivit-Min/FA/Lycopen/Lutein [Certavite Sr with Lutein Tab] 1 each PO DAILY 02/06/19 [History] OLANZapine [Olanzapine] 5 mg OP DAILY 02/06/19 [History] Dextroamphetamine/Amphetamine [Adderall] 30 mg PO DAILY 11/14/20 [History] OLANZapine [Olanzapine] 20 mg PO BEDTIME 11/14/20 [History] Zolpidem Tartrate [Ambien] 1 tab PO BEDTIME 11/14/20 [History] clonazePAM [Clonazepam] 1 mg PO TID PRN 11/14/20 [History] levETIRAcetam [Keppra] 1 tab PO BID 11/14/20 [History] Past Medical History HEENT History: Reports: None Gastrointestinal History: Reports: None Genitourinary History: Reports: Renal Calculus Musculoskeletal History: Reports: Fracture Other Musculoskeletal History: R wrist Fx 03/15/2017 Neurological History: Reports: Concussion, Head Trauma, Seizure Psychiatric History: Reports: ADHD, Anxiety, Bipolar, Depression, Panic Attack, Suicide Attempt Other Psychiatric History: Was released from [facility] this week, inpatient psych. Pt refilled ativan 30 tabs today, bottle empty. suicide attempt 02/27/2019 Endocrine/Metabolic History: Reports: Diabetes, Type II Other Endocrine/Metabolic History: Hx of diabetes, glucose good now that has lost 190#. - Infectious Disease History Infectious Disease History: Reports: Chicken Pox - Past Surgical History HEENT Surgical History: Reports: Adenoidectomy, Oral Surgery, Tonsillectomy GI Surgical History: Reports: Appendectomy, Bariatric Procedure, Cholecystectomy, Hernia, Abdominal Male Surgical History: Reports: None Endocrine Surgical History: Reports: None Musculoskeletal Surgical History: Reports: Other (See Below) Other Musculoskeletal Surgeries/Procedures:: Surgical fixation of R wrist Fx on 03/20/2017 Social & Family History - Family History Family Medical History: No Pertinent Family History - Caffeine Use Caffeine Use: Reports: Soda Caffeine Use Comment: diet soda ED ROS GENERAL - Review of Systems Review Of Systems: Comprehensive ROS is negative, except as noted in HPI. ED EXAM, GENERAL - Physical Exam Exam: See Below General Appearance: Alert, Anxious, Obese Eye Exam: Bilateral Eye: EOMI, PERRL Respiratory/Chest: No Respiratory Distress, Lungs Clear, No Accessory Muscle Use, Chest Non-Tender Cardiovascular: Normal Peripheral Pulses, Regular Rate, Rhythm, No Edema, No Murmur Peripheral Pulses: 2+: Radial (L), Radial (R), Posterior Tibial (L), Posterior Tibial (R) GI/Abdominal: Normal Bowel Sounds, Soft, Non-Tender Neurological: Alert, Oriented Psychiatric: Anxious, Flat Affect, Other (agitated, suicidal ideation without a plan, visual and audio hallucinations) Skin Exam: Warm, Dry, Intact, No Rash Lymphatic: No Adenopathy Course - Vital Signs Last Recorded V/S: Last Vital Signs Temp 97.0 F 05/07/21 17:54 Pulse 120 H 05/07/21 17:54 Resp 16 05/07/21 17:54 BP 126/82 05/07/21 17:54 Pulse Ox - Orders/Labs/Meds Orders: Active Orders 24 hr Category Date Time Status ACETAMINOPHEN [CHEM] Stat Lab 05/07/21 18:05 Ordered Blood Alcohol [ETHANOL BLOOD MEDICAL] [CHEM] Stat Lab 05/07/21 18:05 Ordered CBC WITH AUTO DIFF [HEME] Stat Lab 05/07/21 18:04 Ordered COMPREHENSIVE METABOLIC PN,CMP [CHEM] Stat Lab 05/07/21 18:04 Ordered SALICYLATE [CHEM] Stat Lab 05/07/21 18:05 Ordered TSH ULTRASENSITIVE [CHEM] Stat Lab 05/07/21 18:05 Ordered UA RFX ALEJANDRO AND CULT IF INDIC [URIN] Stat Lab 05/07/21 18:04 Ordered Sodium Chloride 0.9% [Saline Flush] Med 05/07/21 18:07 Ordered 10 ml FLUSH ASDIRECTED PRN Peripheral IV Insertion Adult [OM.PC] Routine Oth 05/07/21 18:07 Ordered Meds: Medications Discontinued Medications Generic Name Dose Route Start Last Admin Trade Name Freq PRN Reason Stop Dose Admin Lorazepam 1 mg 05/07/21 17:54 Lorazepam 1 Mg Tab PO 05/07/21 17:55 ONETIME ONE Lorazepam 2 mg 05/07/21 18:06 Lorazepam 2 Mg/Ml Sdv IVPUSH 05/07/21 18:07 ONETIME ONE Olanzapine 10 mg 05/07/21 17:54 Olanzapine 5 Mg Tab PO 05/07/21 17:55 ONETIME ONE Departure - Departure Time of Disposition: 22:38 Disposition: DC/Tfer to Psych Hosp/Unit 65 Condition: Good Clinical Impression: Anxiety, Suicidal ideations, Visual hallucinations, Auditory hallucination - Discharge Information *PRESCRIPTION DRUG MONITORING PROGRAM REVIEWED*: No *COPY OF PRESCRIPTION DRUG MONITORING REPORT IN PATIENT HEMAL: No Sepsis Event Note (ED) - Evaluation Sepsis Screening Result: No Definite Risk - Focused Exam Vital Signs: Vital Signs Temp Pulse Resp BP 05/07/21 17:54 97.0 F 120 H 16 126/82 - Problem List & Annotations (1) Suicidal ideation SNOMED Code(s): 3847120 Code(s): R45.851 - SUICIDAL IDEATIONS Status: Acute Priority: Medium Current Visit: Yes (2) Anxiety SNOMED Code(s): 97439682 Code(s): F41.9 - ANXIETY DISORDER, UNSPECIFIED Status: Acute Current Visit: Yes (3) Auditory hallucination SNOMED Code(s): 73613776 Code(s): R44.0 - AUDITORY HALLUCINATIONS Status: Acute Current Visit: Yes (4) Visual hallucinations SNOMED Code(s): 67621192 Code(s): R44.1 - VISUAL HALLUCINATIONS Status: Acute Current Visit: Yes - Problem List Review Problem List Initiated/Reviewed/Updated: Yes - My Orders Last 24 Hours: My Active Orders 05/07/21 18:04 CBC WITH AUTO DIFF [HEME] Stat COMPREHENSIVE METABOLIC PN,CMP [CHEM] Stat UA RFX ALEJANDRO AND CULT IF INDIC [URIN] Stat 05/07/21 18:05 ACETAMINOPHEN [CHEM] Stat Blood Alcohol [ETHANOL BLOOD MEDICAL] [CHEM] Stat SALICYLATE [CHEM] Stat TSH ULTRASENSITIVE [CHEM] Stat 05/07/21 18:07 Sodium Chloride 0.9% [Saline Flush] 10 ml FLUSH ASDIRECTED PRN Peripheral IV Insertion Adult [OM.PC] Routine - Assessment/Plan Last 24 Hours: My Active Orders 05/07/21 18:04 CBC WITH AUTO DIFF [HEME] Stat COMPREHENSIVE METABOLIC PN,CMP [CHEM] Stat UA RFX ALEJANDRO AND CULT IF INDIC [URIN] Stat 05/07/21 18:05 ACETAMINOPHEN [CHEM] Stat Blood Alcohol [ETHANOL BLOOD MEDICAL] [CHEM] Stat SALICYLATE [CHEM] Stat TSH ULTRASENSITIVE [CHEM] Stat 05/07/21 18:07 Sodium Chloride 0.9% [Saline Flush] 10 ml FLUSH ASDIRECTED PRN Peripheral IV Insertion Adult [OM.PC] Routine Assessment:: assessment: auditory and visual hallucinations, suicidal ideation, anxiety plan/MDM: pt presents to ER with hx of bipolar and in manic episode stating auditory and v isual hallucinations. auditory hallucination are suggesting self harm and pt states suicidal ideation without a plan. he states approximately 4 days ago he saw his mental health provider Dr. Nix "and things were going great" but within the last 48 hours he has not slept while all of these other symptoms have been going on. because of pt's medical and mental health history and history of suicidal ideation, it is my recommendation that pt be transferred to inpatient mental health facility for closer monitoring and treatment to inpatient psych facility. pt is in agreement with this plan and cooperative throughout his ED stay. pt will be transferred to [facility] via EMS as no other beds were available at facilities closer to [place] making this the closest appropriate facility.
[2021-05-07] MEDS: LORazepam 2 MG/ML SDV IVPUSH ONE ×2 (18:30→19:20)
[2021-05-07] MEDS: OLANZapine 5 MG Tab PO ONE (18:30)
[2021-05-07] MEDS ORDERED: Sodium Chloride 0.9% 1,000 ML IV SCH (18:45)
[2021-05-07 19:07] LABS: ACETAMINOPHEN < 0.0 ug/mL
[2021-05-07] MEDS: Haloperidol Lactate 5 MG/ML SDV IVPUSH ONE (20:15)
[2021-05-07] MEDS ORDERED: Benztropine 0.5 MG Tab PO ONE (20:40)
[2021-05-07] MEDS ORDERED: lamoTRIgine 100 MG Tab PO STA (20:40)
[2021-05-07] MEDS ORDERED: levETIRAcetam 500 MG Tab PO STA (20:44)
[2021-05-07] MEDS: LORazepam 2 MG/ML SDV ONE (22:38)
[2021-05-07] MEDS: Haloperidol Lactate 5 MG/ML SDV ONE (22:39)
== END 2021-05-07 23:20 ==
LOC: LB.ED 17:50
DX: R44.1 Visual hallucinations (principal); R44.0 Auditory hallucinations; F41.9 Anxiety disorder, unspecified; E11.9 Type 2 diabetes mellitus without complications; Z91.018 Allergy to other foods; Z88.1 Allergy status to other antibiotic agents; Z20.822 Contact with and (suspected) exposure to COVID-19
CPT/HCPCS: 36415; 80053; 80143; 80179; 80307; 81003; 84443; 85025; 96374; 96375; 96376; 99285-25; A9270-GY; J1630; J2060; U0002

== ENCOUNTER 2021-06-15 16:30 | Emergency (ER) | payer MEDICAID ==
--- NOTE | 2021-06-15 16:50 | EDM.PDOC ---
ED HPI GENERAL MEDICAL PROBLEM - General Chief Complaint: Lower Extremity Injury/Pain Stated Complaint: INJURED AT HOME Time Seen by Provider: 06/15/21 16:49 Source of Information: Reports: Patient History Limitations: Reports: No Limitations - History of Present Illness INITIAL COMMENTS - FREE TEXT/NARRATIVE: patient presented to the ER with a c/o left ankle pain - reports he was doing his laundry and tripped on the floor. Reports pain 5-6 out of 10. is able to walk without troubles, Pain known as frequent flyer to the ER - h/o seizure, suicidal ideation and frequent vague complaints. He seems comfortable and not in pain distress. no other body injuries. Onset: Today Duration: Hour(s): (1) Location: Reports: Lower Extremity, Left Quality: Reports: Dull Severity: Mild Improves with: Reports: Immobilization Worsens with: Reports: Movement Associated Symptoms: Reports: No Other Symptoms Treatments TRIPE COOKER: Reports: Acetaminophen Left Ankle Pain Score (Numeric/FACES): 7 - Related Data Allergies Allergy/AdvReac Type Severity Reaction Status Date / Time banana Allergy Other Verified 06/15/21 16:53 clarithromycin Allergy Hives Verified 06/15/21 16:53 Home Meds: Home Meds Calcium Citrate/Vitamin D3 [Calcium Citrate + D] 1 each PO BID 12/10/13 [History] Cholecalciferol (Vitamin D3) [D3-2000] 2,000 unit PO DAILY 12/10/13 [History] Magnesium Oxide [Magnesium] 400 mg PO DAILY 12/10/13 [History] Gabapentin [Neurontin] 800 mg PO TID 01/10/15 [History] lamoTRIgine [Lamictal] 200 mg PO BID 07/15/15 [History] Acetaminophen 1 - 2 tab PO QID PRN 11/10/18 [History] Ferrous Sulfate [Ferosul] 325 mg PO DAILY 11/10/18 [History] Benztropine Mesylate 0.5 mg PO BID 02/06/19 [History] Cyanocobalamin (Vitamin B12) [Vitamin B12] 1,000 mcg IM ASDIRECTED 02/06/19 [History] Levothyroxine 25 mcg PO ACBREAKFAST 02/06/19 [History] Multivit-Min/FA/Lycopen/Lutein [Certavite Sr with Lutein Tab] 1 each PO DAILY 02/06/19 [History] OLANZapine [Olanzapine] 5 mg OP DAILY 02/06/19 [History] OLANZapine [Olanzapine] 20 mg PO BEDTIME 11/14/20 [History] Zolpidem Tartrate [Ambien] 1.5 tab PO BEDTIME 11/14/20 [History] clonazePAM [Clonazepam] 1 mg PO TID PRN 11/14/20 [History] levETIRAcetam [Keppra] 1 tab PO BID 11/14/20 [History] Past Medical History HEENT History: Reports: None Gastrointestinal History: Reports: None Genitourinary History: Reports: Renal Calculus Musculoskeletal History: Reports: Fracture Other Musculoskeletal History: R wrist Fx 03/15/2017 Neurological History: Reports: Concussion, Head Trauma, Seizure Psychiatric History: Reports: ADHD, Anxiety, Bipolar, Depression, Panic Attack, Suicide Attempt Other Psychiatric History: Was released from [facility] this week, inpatient psych. Pt refilled ativan 30 tabs today, bottle empty. suicide attempt 02/27/2019 Endocrine/Metabolic History: Reports: Diabetes, Type II Other Endocrine/Metabolic History: Hx of diabetes, glucose good now that has lost 190#. - Infectious Disease History Infectious Disease History: Reports: Chicken Pox - Past Surgical History HEENT Surgical History: Reports: Adenoidectomy, Oral Surgery, Tonsillectomy GI Surgical History: Reports: Appendectomy, Bariatric Procedure, Cholecystectomy, Hernia, Abdominal Male Surgical History: Reports: None Endocrine Surgical History: Reports: None Musculoskeletal Surgical History: Reports: Other (See Below) Other Musculoskeletal Surgeries/Procedures:: Surgical fixation of R wrist Fx on 03/20/2017 Social & Family History - Family History Family Medical History: No Pertinent Family History - Caffeine Use Caffeine Use: Reports: Soda Caffeine Use Comment: diet soda Review of Systems - Review of Systems Review Of Systems: See Below Constitutional: Reports: No Symptoms Eyes: Reports: No Symptoms Respiratory: Reports: No Symptoms Cardiovascular: Reports: No Symptoms GI/Abdominal: Reports: No Symptoms Skin: Reports: No Symptoms Neurological: Reports: No Symptoms ED EXAM, GENERAL - Physical Exam Exam: See Below Exam Limited By: No Limitations General Appearance: Alert, WD/WN, No Apparent Distress Eye Exam: Bilateral Eye: EOMI Head: Atraumatic Respiratory/Chest: No Respiratory Distress Cardiovascular: Normal Peripheral Pulses Back Exam: Normal Inspection Extremities: Normal Inspection, Normal Range of Motion, Other (no foot deformity ) Neurological: Alert, Oriented Course - Vital Signs Last Recorded V/S: Last Vital Signs Temp 37.1 C 06/15/21 16:37 Pulse 105 H 06/15/21 16:37 Resp 20 06/15/21 16:37 BP 153/88 H 06/15/21 16:37 Pulse Ox 97 06/15/21 16:37 - Orders/Labs/Meds Orders: Active Orders 24 hr Category Date Time Status Ankle Min 3V Lt [CR] Stat Exams 06/15/21 16:48 Taken - Re-Assessments/Exams Free Text/Narrative Re-Assessment/Exam: xray left ankle - no fracture or dislocation Departure - Departure Time of Disposition: 17:34 Disposition: Home, Self-Care 01 Condition: Good Clinical Impression: Foot contusion Qualifiers: Encounter type: initial encounter Laterality: left Qualified Code(s): S90.32XA - Contusion of left foot, initial encounter Ankle sprain Qualifiers: Encounter type: initial encounter Involved ligament of ankle: other ligament Laterality: left Qualified Code(s): S93.492A - Sprain of other ligament of left ankle, initial encounter - Discharge Information *PRESCRIPTION DRUG MONITORING PROGRAM REVIEWED*: Not Applicable *COPY OF PRESCRIPTION DRUG MONITORING REPORT IN PATIENT HEMAL: Not Applicable Instructions: Ankle Sprain, [id number], Foot Contusion, [id number] Forms: ED Department Discharge Sepsis Event Note (ED) - Focused Exam Vital Signs: Vital Signs Temp Pulse Resp BP Pulse Ox 06/15/21 16:37 37.1 C 105 H 20 153/88 H 97 - Problem List & Annotations (1) Ankle sprain SNOMED Code(s): 26737434 Code(s): S93.409A - SPRAIN OF UNSP LIGAMENT OF UNSPECIFIED ANKLE, INIT ENCNTR Status: Acute Priority: Low Current Visit: Yes Qualifiers: Encounter type: initial encounter Involved ligament of ankle: other ligament Laterality: left Qualified Code(s): S93.492A - Sprain of other ligament of left ankle, initial encounter (2) Foot contusion SNOMED Code(s): 57240123 Code(s): S90.30XA - CONTUSION OF UNSPECIFIED FOOT, INITIAL ENCOUNTER Status: Acute Priority: Low Current Visit: Yes Qualifiers: Encounter type: initial encounter Laterality: left Qualified Code(s): S90.32XA - Contusion of left foot, initial encounter - Problem List Review Problem List Initiated/Reviewed/Updated: Yes - My Orders Last 24 Hours: My Active Orders 06/15/21 16:48 Ankle Min 3V Lt [CR] Stat - Assessment/Plan Last 24 Hours: My Active Orders 06/15/21 16:48 Ankle Min 3V Lt [CR] Stat Plan: - ice the affected area - leg elevation - Tylenol for pain - acewrap to help with discomfort - follow up with PCP in 1-2 weeks as needed
[2021-06-15 17:13] VITALS: BP 153/88; PULSE 105
--- NOTE | 2021-06-16 08:29 | CR ---
Date of Service: 06/15/21 Clinical Data: twisted - pain LEFT ANKLE: No priors. No acute fracture or dislocation. No lytic or blastic bone lesions. [id number] [facility]
== END 2021-06-15 17:45 | disposition home or self-care (01) ==
LOC: LB.ED 16:30
DX: S93.492A Sprain of other ligament of left ankle, initial encounter (principal); S90.32XA Contusion of left foot, initial encounter; E11.9 Type 2 diabetes mellitus without complications; Z91.018 Allergy to other foods; Z88.1 Allergy status to other antibiotic agents; Z79.899 Other long term (current) drug therapy; W01.0XXA Fall on same level from slipping, tripping and stumbling without subsequent striking against object, initial encounter; Y93.E2 Activity, laundry
CPT/HCPCS: 73610-LT; 99283-25

== ENCOUNTER 2021-07-06 15:08 | Emergency (ER) | payer MEDICAID ==
[2021-07-06] MEDS ORDERED: OLANZapine 5 MG Tab PO ONE (15:22)
[2021-07-06] MEDS ORDERED: LORazepam 1 MG Tab PO ONE ×2 (15:23→17:02)
[2021-07-06] MEDS ORDERED: LORazepam 1 MG Tab ONE ×2 (15:35→17:19)
[2021-07-06] MEDS ORDERED: Potassium Chloride 20 MEQ Tab.ER PO ONE (16:56)
[2021-07-06] MEDS ORDERED: Levothyroxine 25 MCG Tab PO ONE (18:08)
[2021-07-06] MEDS ORDERED: Zolpidem 5 MG Tab PO ONE (18:09)
[2021-07-06] MEDS ORDERED: Nicotine 21 MG/24 Hr Patch TRDERM ONE (18:10)
[2021-07-06] MEDS ORDERED: LORazepam 1 MG Tab PO PRN (18:10)
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
[2021-07-06] MEDS ORDERED: Gabapentin 100 MG Cap ONE (20:15)
[2021-07-06] MEDS ORDERED: Gabapentin 600 MG Tab ONE (20:17)
[2021-07-06] MEDS: Gabapentin 800 MG Tab PO SCH (20:18)
[2021-07-06] MEDS: levETIRAcetam 500 MG Tab PO SCH (20:18)
[2021-07-06] MEDS: lamoTRIgine 100 MG Tab PO SCH (20:18)
[2021-07-06] MEDS ORDERED: Levothyroxine 25 MCG Tab ONE (20:25)
[2021-07-06] MEDS: Benztropine 0.5 MG Tab PO SCH (21:28)
[2021-07-07] MEDS ORDERED: Gabapentin 100 MG Cap ONE (07:31)
[2021-07-07] MEDS ORDERED: Gabapentin 600 MG Tab ONE (07:32)
[2021-07-07] MEDS: Gabapentin 800 MG Tab PO SCH (07:38)
[2021-07-07] MEDS: levETIRAcetam 500 MG Tab PO SCH (07:39)
[2021-07-07] MEDS: lamoTRIgine 100 MG Tab PO SCH (07:44)
[2021-07-07] MEDS ORDERED: OLANZapine 5 MG Tab PO SCH (08:00)
[2021-07-07 08:10] VITALS: PULSE 84
[2021-07-07] MEDS ORDERED: Lisinopril 10 MG Tab ONE (08:28)
[2021-07-07 08:30] VITALS: BP 139/80
[2021-07-07] MEDS ORDERED: Lisinopril 10 MG Tab PO SCH (08:30)
[2021-07-07] MEDS: Benztropine 0.5 MG Tab PO SCH (10:56)
== END 2021-07-07 11:15 ==
LOC: LB.ED 15:08
DX: F28 Other psychotic disorder not due to a substance or known physiological condition (principal); E11.9 Type 2 diabetes mellitus without complications; Z79.899 Other long term (current) drug therapy; Z91.018 Allergy to other foods; Z88.1 Allergy status to other antibiotic agents; Z20.822 Contact with and (suspected) exposure to COVID-19
CPT/HCPCS: 36415; 80048; 80307; 85025; 87635; 99284; A0425; A0429; A9270; U0002

== ENCOUNTER 2021-08-01 15:10 | Emergency (ER) | payer MEDICAID ==
[2021-08-01] MEDS ORDERED: Haloperidol Lactate 5 MG/ML SDV IM ONE ×2 (15:20→15:40)
[2021-08-01] MEDS ORDERED: LORazepam 2 MG/ML SDV IM ONE (15:20)
[2021-08-01] MEDS ORDERED: Haloperidol Lactate 5 MG/ML SDV ONE (15:43)
--- NOTE | 2021-08-01 15:49 | EDM.PDOCBH ---
ED HPI GENERAL MEDICAL PROBLEM - General Chief Complaint: Behavioral/Psych Stated Complaint: suicidal Time Seen by Provider: 08/01/21 15:10 Source of Information: Reports: Patient History Limitations: Reports: No Limitations - History of Present Illness INITIAL COMMENTS - FREE TEXT/NARRATIVE: 31-year-old male presents the ED complaining of hearing voices that are telling him to kill himself, suicidal ideation. History of suicidal ideations depression schizophrenia visual hallucinations auditory hallucinations and seizures. Frequent visits to the ED. patient states that he is had approximately 2 days of audio hallucinations telling him to kill himself, patient tried to self medicate with alcohol states that he drank one half bottle of wine today. Patient took his morning psych medications, and states that he has been compliant with his treatment regimen. Patient normally sees his psychiatrist once a month. Patient is a patient of Dr. Trejo for [facility]. Patient states that he does not want to and walked to the hospital because he needs help patient says he is very anxious can't sit still and can't take it anymore. Patient positive for: Chest tightness associated with his hallucinations. Onset: Sudden Duration: Day(s): (2) - Related Data Allergies Allergy/AdvReac Type Severity Reaction Status Date / Time banana Allergy Other Verified 07/06/21 15:50 clarithromycin Allergy Hives Verified 07/06/21 15:50 Home Meds: Home Meds Calcium Citrate/Vitamin D3 [Calcium Citrate + D] 1 each PO BID 12/10/13 [History] Cholecalciferol (Vitamin D3) [D3-2000] 2,000 unit PO DAILY 12/10/13 [History] Magnesium Oxide [Magnesium] 400 mg PO DAILY 12/10/13 [History] Gabapentin [Neurontin] 800 mg PO TID 01/10/15 [History] lamoTRIgine [Lamictal] 200 mg PO BID 07/15/15 [History] Acetaminophen 1 - 2 tab PO QID PRN 11/10/18 [History] Ferrous Sulfate [Ferosul] 325 mg PO DAILY 11/10/18 [History] Benztropine Mesylate 0.5 mg PO BID 02/06/19 [History] Cyanocobalamin (Vitamin B12) [Vitamin B12] 1,000 mcg IM ASDIRECTED 02/06/19 [History] Levothyroxine 25 mcg PO ACBREAKFAST 02/06/19 [History] Multivit-Min/FA/Lycopen/Lutein [Certavite Sr with Lutein Tab] 1 each PO DAILY 02/06/19 [History] OLANZapine [Olanzapine] 5 mg OP DAILY 02/06/19 [History] OLANZapine [Olanzapine] 20 mg PO BEDTIME 11/14/20 [History] Zolpidem Tartrate [Ambien] 1.5 tab PO BEDTIME 11/14/20 [History] levETIRAcetam [Keppra] 1 tab PO BID 11/14/20 [History] lisinopriL [Lisinopril] 10 mg PO DAILY 07/07/21 [History] Past Medical History HEENT History: Reports: None Gastrointestinal History: Reports: None Genitourinary History: Reports: Renal Calculus Musculoskeletal History: Reports: Fracture, Osteoporosis Other Musculoskeletal History: R wrist Fx 03/15/2017 Neurological History: Reports: Concussion, Head Trauma, Seizure Psychiatric History: Reports: ADHD, Anxiety, Bipolar, Depression, Panic Attack, Schizophrenia, Suicide Attempt Other Psychiatric History: suicide attempt 02/27/2019 Endocrine/Metabolic History: Reports: Diabetes, Type II Other Endocrine/Metabolic History: Hx of diabetes, glucose good now that has lost 190#. - Infectious Disease History Infectious Disease History: Reports: Chicken Pox - Past Surgical History HEENT Surgical History: Reports: Adenoidectomy, Oral Surgery, Tonsillectomy GI Surgical History: Reports: Appendectomy, Bariatric Procedure, Cholecystectomy, Hernia, Abdominal Male Surgical History: Reports: None Endocrine Surgical History: Reports: None Musculoskeletal Surgical History: Reports: Other (See Below) Other Musculoskeletal Surgeries/Procedures:: Surgical fixation of R wrist Fx on 03/20/2017 Social & Family History - Family History Family Medical History: No Pertinent Family History - Caffeine Use Caffeine Use: Reports: None Caffeine Use Comment: diet soda ED ROS GENERAL - Review of Systems Review Of Systems: See Below Constitutional: Reports: No Symptoms HEENT: Reports: No Symptoms Respiratory: Reports: No Symptoms Cardiovascular: Reports: No Symptoms Endocrine: Reports: No Symptoms GI/Abdominal: Reports: No Symptoms : Reports: No Symptoms Musculoskeletal: Reports: No Symptoms Skin: Reports: No Symptoms Neurological: Reports: Seizure Psychiatric: Reports: Anxiety, Depression, Hallucinations, Suicidal Ideation Hematologic/Lymphatic: Reports: No Symptoms Immunologic: Reports: No Symptoms ED EXAM, BEHAVIORAL HEALTH - Physical Exam Exam: See Below Text/Narrative:: 31-year-old male in the ED bed 1 semi-Fowlers position, patient very anxious moving around rapidly flopping his body from side to side, obvious emotional distress, screaming out he can't take it anymore. Patient is alert and oriented x3 GCS 4 5 6, speaking in full sentences no obvious trauma. Exam Limited By: No Limitations General Appearance: Alert, WD/WN, No Apparent Distress, Anxious, Severe Distress (Mental) Eye Exam: Bilateral Eye: EOMI, PERRL Ears: Normal External Exam, Hearing Grossly Normal Nose: No Blood Throat/Mouth: Normal Lips, Normal Voice, No Airway Compromise Head: Atraumatic, Normocephalic Respiratory/Chest: No Respiratory Distress, Lungs Clear, Normal Breath Sounds, No Accessory Muscle Use, Chest Non-Tender Cardiovascular: Normal Peripheral Pulses, Regular Rate, Rhythm, No Edema, No Gallop, No JVD, No Murmur, No Rub GI/Abdominal: Soft, Non-Tender, Distended (Baseline) Neurological: Alert, Oriented x 3 Psychiatric: Restless, Agitated, Suicidal Thoughts, Auditory Hallucinations Skin Exam: Warm, Dry, Intact COURSE, BEHAVIORAL HEALTH COMP - Course Orders, Labs, Meds: Active Orders 24 hr Category Date Time Status BASIC METABOLIC PANEL,BMP [CHEM] Stat Lab 08/01/21 15:17 Ordered DRUG SCREEN, URINE [URCHEM] Stat Lab 08/01/21 15:17 Ordered ETHANOL BLOOD MEDICAL [CHEM] Stat Lab 08/01/21 15:17 Ordered TSH ULTRASENSITIVE [CHEM] Stat Lab 08/01/21 15:17 Ordered UA RFX ALEJANDRO AND CULT IF INDIC [URIN] Stat Lab 08/01/21 15:17 Ordered Laboratory Tests 08/01/21 Range/Units 15:17 WBC 7.6 (4.0-11.0) K/uL RBC 4.50 (4.50-6.50) M/uL Hgb 14.3 (13.0-18.0) g/dL Hct 42.4 (40.0-54.0) % MCV 94 (76-96) fL MCH 31.8 (27.0-32.0) pg MCHC 33.7 (31.0-35.0) g/dL RDW 13.5 (11.0-16.0) % Plt Count 310 (150-400) K/uL MPV 10.1 H (6.0-10.0) fL Neut % (Auto) 55.6 (45.0-70.0) % Lymph % (Auto) 31.8 (20.0-40.0) % Lee % (Auto) 11.3 H (3.0-10.0) % Eos % (Auto) 0.9 L (1.0-5.0) % Baso % (Auto) 0.4 (0.0-0.5) % Neut # (Auto) 4.23 (2.00-7.50) K/uL Lymph # (Auto) 2.42 (1.50-4.00) K/uL Lee # (Auto) 0.86 H (0.20-0.80) K/uL Eos # (Auto) 0.07 (0.04-0.40) K/uL Baso # (Auto) 0.03 (0.02-0.10) K/uL Medications Discontinued Medications Generic Name Dose Route Start Last Admin Trade Name Freq PRN Reason Stop Dose Admin Haloperidol Lactate Confirm 08/01/21 15:43 Haloperidol Lactate 5 Mg/Ml Sdv Administered 08/01/21 15:44 Dose 5 mg .ROUTE .STK-MED ONE Departure - Departure Time of Disposition: 15:55 Disposition: Eloped 07 Condition: Poor (Based on suicidal ideations and audio hallucinations) Clinical Impression: Hallucinations, Alcohol abuse Schizophrenia Qualifiers: Schizophrenia type: unspecified Qualified Code(s): F20.9 - Schizophrenia, unspecified - Discharge Information *PRESCRIPTION DRUG MONITORING PROGRAM REVIEWED*: No *COPY OF PRESCRIPTION DRUG MONITORING REPORT IN PATIENT HEMAL: No - My Orders Last 24 Hours: My Active Orders 08/01/21 15:17 BASIC METABOLIC PANEL,BMP [CHEM] Stat DRUG SCREEN, URINE [URCHEM] Stat ETHANOL BLOOD MEDICAL [CHEM] Stat TSH ULTRASENSITIVE [CHEM] Stat UA RFX ALEJANDRO AND CULT IF INDIC [URIN] Stat - Assessment/Plan Last 24 Hours: My Active Orders 08/01/21 15:17 BASIC METABOLIC PANEL,BMP [CHEM] Stat DRUG SCREEN, URINE [URCHEM] Stat ETHANOL BLOOD MEDICAL [CHEM] Stat TSH ULTRASENSITIVE [CHEM] Stat UA RFX ALEJANDRO AND CULT IF INDIC [URIN] Stat Assessment:: 1. Suicidal ideations 2. Audio hallucinations 3. Depression 4. Anxiety In the process of telemedicine behavioral health assessment patient became very agitated, got up and eloped from facility without medical advice without further treatment. Law enforcement was contacted to reach out to individual given his mental health history and his current presentation. Awaiting response from enforcement. Plan: ABC, history, exam, lorazepam 2 mg IM, Haldol 5 mg x 2 IM, telemedicine mental health evaluation incomplete, patient elopement, my enforcement contacted.
== END 2021-08-01 15:50 | disposition left against medical advice (07) ==
LOC: LB.ED 15:10
DX: F20.9 Schizophrenia, unspecified (principal); F10.10 Alcohol abuse, uncomplicated; F32.A Depression, unspecified; E11.9 Type 2 diabetes mellitus without complications; Z88.1 Allergy status to other antibiotic agents; Z91.018 Allergy to other foods; Z79.899 Other long term (current) drug therapy
CPT/HCPCS: 36415; 80048; 80307; 84443; 85025; 96372; 99284; J1630; J2060

== ENCOUNTER 2021-09-08 13:34 | Emergency (ER) | payer MEDICAID ==
[2021-09-08] MEDS ORDERED: LORazepam 1 MG Tab PO ONE ×2 (13:45→15:56)
[2021-09-08] MEDS ORDERED: LORazepam 1 MG Tab ONE ×2 (13:51→16:11)
[2021-09-08 13:54] VITALS: BP 149/92; PULSE 116
[2021-09-08] MEDS ORDERED: Cyanocobalamin (Vitamin B12) 1,000 MCG/ML SDV IM ONE (14:08)
--- NOTE | 2021-09-08 14:38 | EDM.PDOCBH ---
ED HPI GENERAL MEDICAL PROBLEM - General Chief Complaint: Behavioral/Psych Stated Complaint: HEARING VOICES Time Seen by Provider: 09/08/21 13:34 Source of Information: Reports: Patient, RN Notes Reviewed History Limitations: Reports: No Limitations - History of Present Illness INITIAL COMMENTS - FREE TEXT/NARRATIVE: This patient presents to the ED raging and states he is hearing voices that are telling him to kill himself and he doesn't feel safe. Patient is belligerent, using foul language stating that no one is willing to help him. He was immediately roomed in the ED and assessed. He states he started hearing voices 3 days ago; he also states he "ran out of his Ativan" 3 days ago. According to the pharmacy, he was given a prescription for 90 Ativan tablets on 08/24/21. He admits to drinking "a little" alcohol today to stop the voices because "he had to do something to stop the voices." The patient was hospitalized for 6 days in July for the same concerns. He states since he was there, he has gotten a job at [employer] and that he likes it and is doing well there. He says he struggles with the voices when he is not working. Lower Back Pain Score (Numeric/FACES): 5 - Related Data Allergies Allergy/AdvReac Type Severity Reaction Status Date / Time banana Allergy Other Verified 07/06/21 15:50 clarithromycin Allergy Hives Verified 07/06/21 15:50 Home Meds: Home Meds Calcium Citrate/Vitamin D3 [Calcium Citrate + D] 1 each PO BID 12/10/13 [Histor y] Cholecalciferol (Vitamin D3) [D3-2000] 2,000 unit PO DAILY 12/10/13 [History] Magnesium Oxide [Magnesium] 400 mg PO DAILY 12/10/13 [History] Gabapentin [Neurontin] 800 mg PO TID 01/10/15 [History] lamoTRIgine [Lamictal] 200 mg PO BID 07/15/15 [History] Acetaminophen 1 - 2 tab PO QID PRN 11/10/18 [History] Ferrous Sulfate [Ferosul] 325 mg PO DAILY 11/10/18 [History] Benztropine Mesylate 0.5 mg PO BID 02/06/19 [History] Cyanocobalamin (Vitamin B12) [Vitamin B12] 1,000 mcg IM ASDIRECTED 02/06/19 [History] Levothyroxine 25 mcg PO ACBREAKFAST 02/06/19 [History] Multivit-Min/FA/Lycopen/Lutein [Certavite Sr with Lutein Tab] 1 each PO DAILY 02/06/19 [History] OLANZapine [Olanzapine] 5 mg OP DAILY 02/06/19 [History] OLANZapine [Olanzapine] 20 mg PO BEDTIME 11/14/20 [History] Zolpidem Tartrate [Ambien] 1.5 tab PO BEDTIME 11/14/20 [History] levETIRAcetam [Keppra] 1 tab PO BID 11/14/20 [History] lisinopriL [Lisinopril] 10 mg PO DAILY 07/07/21 [History] LORazepam [Ativan] 1 mg PO TID PRN 09/08/21 [History] Past Medical History HEENT History: Reports: None Gastrointestinal History: Reports: None Genitourinary History: Reports: Renal Calculus Musculoskeletal History: Reports: Fracture, Osteoporosis Other Musculoskeletal History: R wrist Fx 03/15/2017 Neurological History: Reports: Concussion, Head Trauma, Seizure Psychiatric History: Reports: ADHD, Addiction, Anxiety, Bipolar, Depression, Panic Attack, Schizophrenia, Suicide Attempt Other Psychiatric History: suicide attempt 02/27/2019 Endocrine/Metabolic History: Reports: Diabetes, Type II Other Endocrine/Metabolic History: Hx of diabetes, glucose good now that has lost 190#. - Infectious Disease History Infectious Disease History: Reports: Chicken Pox - Past Surgical History HEENT Surgical History: Reports: Adenoidectomy, Oral Surgery, Tonsillectomy GI Surgical History: Reports: Appendectomy, Bariatric Procedure, Cholecystectomy, Hernia, Abdominal Male Surgical History: Reports: None Endocrine Surgical History: Reports: None Musculoskeletal Surgical History: Reports: Other (See Below) Other Musculoskeletal Surgeries/Procedures:: Surgical fixation of R wrist Fx on 03/20/2017 Social & Family History - Family History Family Medical History: No Pertinent Family History - Tobacco Use Tobacco Use Status *Q: Current Every Day Tobacco User Years of Tobacco use: 10 Packs/Tins Daily: 1 - Caffeine Use Caffeine Use: Reports: Soda Caffeine Use Comment: diet soda - Recreational Drug Use Recreational Drug Use: Yes ED ROS GENERAL - Review of Systems Review Of Systems: Comprehensive ROS is negative, except as noted in HPI. ED EXAM, BEHAVIORAL HEALTH - Physical Exam Exam: See Below Exam Limited By: Intoxication General Appearance: Alert, Anxious, Severe Distress Eye Exam: Bilateral Eye: EOMI, Normal Inspection, PERRL Ears: Normal External Exam Nose: Normal Inspection Throat/Mouth: Normal Inspection Head: Atraumatic, Normocephalic Neck: Normal Inspection, Supple, Full Range of Motion Respiratory/Chest: No Respiratory Distress, Lungs Clear, Normal Breath Sounds, No Accessory Muscle Use Cardiovascular: Regular Rate, Rhythm Neurological: Alert Psychiatric: Alert, Restless, Agitated, Inattentive, Uncooperative, Flight of Ideas, Suicidal Thoughts, Auditory Hallucinations, Threatening Behavior Skin Exam: Warm, Dry, Intact COURSE, BEHAVIORAL HEALTH COMP - Course Vital Signs: Last Vital Signs Temp 36.1 C 09/08/21 13:43 Pulse 116 H 09/08/21 13:43 Resp 20 09/08/21 13:43 BP 149/92 H 09/08/21 13:43 Pulse Ox 96 09/08/21 14:58 Orders, Labs, Meds: Active Orders 24 hr Category Date Time Status DRUG SCREEN URINE BIORAD [URCHEM] Routine Lab 09/08/21 16:11 Ordered Laboratory Tests 09/08/21 09/08/21 Range/Units 14:37 14:45 Urine Opiates Screen Negative (NEGATIVE) Ur Oxycodone Screen Negative (NEGATIVE) Urine Methadone Screen Negative (NEGATIVE) Ur Barbiturates Screen Negative (NEGATIVE) Ur Tricyclics Screen Negative (NEGATIVE) Ur Phencyclidine Scrn Negative (NEGATIVE) Ur Amphetamine Screen Negative (NEGATIVE) U Methamphetamines Scrn Negative (NEGATIVE) Urine MDMA Screen Negative (NEGATIVE) U Benzodiazepines Scrn Negative (NEGATIVE) U Cocaine Metab Screen Negative (NEGATIVE) U Marijuana (THC) Screen Negative (NEGATIVE) Ethyl Alcohol 160.0 H (<3.0) mg/dL Medications Discontinued Medications Generic Name Dose Route Start Last Admin Trade Name Freq PRN Reason Stop Dose Admin Cyanocobalamin 1,000 mcg 09/08/21 14:08 09/08/21 14:25 Cyanocobalamin (Vitamin B12) 1,000 Mcg/Ml Sdv IM 09/08/21 14:09 1,000 mcg ONETIME ONE Administration Lorazepam Confirm 09/08/21 13:51 09/08/21 13:59 Lorazepam 1 Mg Tab Administered 09/08/21 13:52 Not Given Dose 2 mg .ROUTE .STK-MED ONE Lorazepam 2 mg 09/08/21 13:45 09/08/21 13:45 Lorazepam 1 Mg Tab PO 09/08/21 13:46 2 mg ONETIME ONE Administration Lorazepam 2 mg 09/08/21 15:56 09/08/21 16:01 Lorazepam 1 Mg Tab PO 09/08/21 15:57 2 mg ONETIME ONE Administration Lorazepam Confirm 09/08/21 16:11 09/08/21 16:02 Lorazepam 1 Mg Tab Administered 09/08/21 16:12 Not Given Dose 2 mg .ROUTE .STK-MED ONE Discharge vs Psych Eval/Treatment:: This patient presents to the emergency department stating he is hearing voices and that he is out of his Ativan. He also admits to drinking small amount of alcohol today because he did not know how to make the voices go away. History and clinical findings are most consistent with alcohol intoxication as evidenced by a blood alcohol level of 0.16 today. There is also no evidence that he has been using his medications as scheduled. He was given a prescription of 90 Ativan 2 mg tablets 14 days ago and states he has been taking his medications as prescribed. A urine drug screen is negative today for benzodiazepines. I did contact his psychiatrist and spoke with him regarding management of this patient. Patient has a recent hospitalization, was given adequate resources and medications at the time of discharge and has a visit scheduled for next week. Psychiatry suggested the patient could be discharged to home and follow-up with them next week. I did instruct the patient that we would not be admitting him to the hospital and that he would be discharged to home. He stated that was fine and that he had coping exercises to do at home and will do those. The patient was medically stable at the time of discharge. 09/08/21 16:13 Departure - Departure Time of Disposition: 16:15 Disposition: Admitted As Inpatient 66 Condition: Fair Clinical Impression: Mental and behavioral problem - Discharge Information Referrals: PCP,None [Primary Care Provider] - Forms: ED Department Discharge Sepsis Event Note (ED) - Evaluation Sepsis Screening Result: No Definite Risk - Focused Exam Vital Signs: Vital Signs Temp Pulse Resp BP Pulse Ox 09/08/21 14:58 96 09/08/21 13:43 36.1 C 116 H 20 149/92 H 96 - My Orders Last 24 Hours: My Active Orders 09/08/21 16:11 DRUG SCREEN URINE BIORAD [URCHEM] Routine - Assessment/Plan Last 24 Hours: My Active Orders 09/08/21 16:11 DRUG SCREEN URINE BIORAD [URCHEM] Routine
== END 2021-09-08 16:24 | disposition home or self-care (01) ==
LOC: LB.ED 13:34
DX: F91.9 Conduct disorder, unspecified (principal); E11.9 Type 2 diabetes mellitus without complications; Z72.0 Tobacco use; Z91.018 Allergy to other foods; Z88.1 Allergy status to other antibiotic agents; Z79.899 Other long term (current) drug therapy
CPT/HCPCS: 36415; 80307; 96372; 99285; A9270; J3420

== ENCOUNTER 2021-09-26 14:29 | Emergency (ER) | payer MEDICAID ==
--- NOTE | 2021-09-26 14:43 | EDM.PDOC ---
ED HPI GENERAL MEDICAL PROBLEM - General Chief Complaint: Back Pain or Injury Stated Complaint: seizure Time Seen by Provider: 09/26/21 14:30 Source of Information: Reports: Patient, RN Notes Reviewed History Limitations: Reports: No Limitations - History of Present Illness INITIAL COMMENTS - FREE TEXT/NARRATIVE: This patient presents to the emergency department for evaluation of neck pain. He states he had a seizure at home today and fell backward onto the floor. Mother states that the seizure lasted approximately 2 minutes. He is now complaining of headache and neck pain. He denies any chest pain, difficulty breathing. His mood is stable and pleasant today. He denies any nausea or vomiting. He denies numbness or tingling in his hands or feet. The patient has a seizure disorder and was seen by his neurologist recently. Patient does have a known seizure EEG on October 08. - Related Data Allergies Allergy/AdvReac Type Severity Reaction Status Date / Time banana Allergy Other Verified 07/06/21 15:50 clarithromycin Allergy Hives Verified 07/06/21 15:50 Home Meds: Home Meds Calcium Citrate/Vitamin D3 [Calcium Citrate + D] 1 each PO BID 12/10/13 [History] Cholecalciferol (Vitamin D3) [D3-2000] 2,000 unit PO DAILY 12/10/13 [History] Magnesium Oxide [Magnesium] 400 mg PO DAILY 12/10/13 [History] Gabapentin [Neurontin] 800 mg PO TID 01/10/15 [History] lamoTRIgine [Lamictal] 200 mg PO BID 07/15/15 [History] Acetaminophen 1 - 2 tab PO QID PRN 11/10/18 [History] Ferrous Sulfate [Ferosul] 325 mg PO DAILY 11/10/18 [History] Benztropine Mesylate 0.5 mg PO BID 02/06/19 [History] Cyanocobalamin (Vitamin B12) [Vitamin B12] 1,000 mcg IM ASDIRECTED 02/06/19 [History] Levothyroxine 25 mcg PO ACBREAKFAST 02/06/19 [History] Multivit-Min/FA/Lycopen/Lutein [Certavite Sr with Lutein Tab] 1 each PO DAILY 02/06/19 [History] OLANZapine [Olanzapine] 5 mg OP DAILY 02/06/19 [History] OLANZapine [Olanzapine] 20 mg PO BEDTIME 11/14/20 [History] Zolpidem Tartrate [Ambien] 1.5 tab PO BEDTIME 11/14/20 [History] levETIRAcetam [Keppra] 1 tab PO BID 11/14/20 [History] lisinopriL [Lisinopril] 10 mg PO DAILY 07/07/21 [History] LORazepam [Ativan] 1 mg PO TID PRN 09/08/21 [History] Past Medical History HEENT History: Reports: None Gastrointestinal History: Reports: None Genitourinary History: Reports: Renal Calculus Musculoskeletal History: Reports: Fracture, Osteoporosis Other Musculoskeletal History: R wrist Fx 03/15/2017 Neurological History: Reports: Concussion, Head Trauma, Seizure Psychiatric History: Reports: ADHD, Addiction, Anxiety, Bipolar, Depression, Panic Attack, Schizophrenia, Suicide Attempt Other Psychiatric History: suicide attempt 02/27/2019 Endocrine/Metabolic History: Reports: Diabetes, Type II Other Endocrine/Metabolic History: Hx of diabetes, glucose good now that has lost 190#. - Infectious Disease History Infectious Disease History: Reports: Chicken Pox - Past Surgical History HEENT Surgical History: Reports: Adenoidectomy, Oral Surgery, Tonsillectomy GI Surgical History: Reports: Appendectomy, Bariatric Procedure, Cholecystectomy, Hernia, Abdominal Male Surgical History: Reports: None Endocrine Surgical History: Reports: None Musculoskeletal Surgical History: Reports: Other (See Below) Other Musculoskeletal Surgeries/Procedures:: Surgical fixation of R wrist Fx on 03/20/2017 Social & Family History - Family History Family Medical History: No Pertinent Family History - Caffeine Use Caffeine Use: Reports: Soda Caffeine Use Comment: diet soda ED ROS GENERAL - Review of Systems Review Of Systems: Comprehensive ROS is negative, except as noted in HPI. ED EXAM, UPPER BACK/NECK PAIN - Physical Exam Exam: See Below Exam Limited By: No Limitations General Appearance: Alert, No Apparent Distress Eye Exam: Bilateral Eye: EOMI, PERRL Ears Exam: Normal External Exam Nose Exam: Normal Inspection Head Exam: Atraumatic, Normocephalic, Scalp Tenderness (Posterior). No: Scalp Lacerations, Scalp Swelling, Scalp Abrasions, Scalp Ecchymosis, Scalp Hematoma Neck Exam: Full Range of Motion, Normal Alignment, Normal Inspection, Tenderness (Pain with palpation down cervical spine. Range of motion in tact) Nexus Criteria: Posterior, Midline Cervical Tenderness. No: Evidence of Intoxication, Altered Level of Consciousness, Focal Neurological Deficit, Painful Distraction Injuries Cardiovascular/Respiratory: Normal Breath Sounds, No Respiratory Distress Back Exam: Normal Inspection Extremities: Normal Inspection Neurologic: No Motor/Sensory Deficits, Alert, Normal Mood/Affect, Oriented x 3 Psychiatric: Normal Affect, Normal Mood Skin Exam: Normal Color, Warm/Dry Course - Orders/Labs/Meds Meds: Medications Discontinued Medications Generic Name Dose Route Start Last Admin Trade Name Rubi PRN Reason Stop Dose Admin Ketorolac Tromethamine 30 mg 09/26/21 14:44 09/26/21 14:42 Ketorolac 30 Mg/Ml Sdv IM 09/26/21 14:45 30 mg ONETIME ONE Administration - Re-Assessments/Exams Free Text/Narrative Re-Assessment/Exam: 09/26/21 14:57 This patient, well-known to this emergency department, presents for evaluation of neck pain. He states he had a seizure earlier today and has had pain in his neck and a headache since that happened. Physical examination is without findings and this is quite reassuring. He most likely has a musculoskeletal strain related to his fall following a seizure. He will be given Toradol, 30 mg IM for pain. He did take Tylenol prior to arrival and states it did not help. Departure - Departure Time of Disposition: 15:00 Disposition: Home, Self-Care 01 Condition: Good Clinical Impression: Neck pain, History of seizure - Discharge Information Instructions: Acute Back Pain, Adult Forms: ED Department Discharge Additional Instructions: May stay home and rest today. Take Tylenol or Ibuporphen as directed for pain.
[2021-09-26] MEDS ORDERED: Ketorolac 30 MG/ML SDV IM ONE (14:44)
== END 2021-09-26 14:50 | disposition home or self-care (01) ==
LOC: LB.ED 14:29
DX: M54.2 Cervicalgia (principal); R56.9 Unspecified convulsions; E11.9 Type 2 diabetes mellitus without complications; Z91.018 Allergy to other foods; Z88.1 Allergy status to other antibiotic agents; Z79.899 Other long term (current) drug therapy
CPT/HCPCS: 96372; 99283; J1885

== ENCOUNTER 2021-09-29 14:44 | Emergency (ER) | payer MEDICAID ==
--- NOTE | 2021-09-29 15:35 | EDM.PDOC ---
ED HPI GENERAL MEDICAL PROBLEM - General Chief Complaint: Laceration Stated Complaint: LACERATION Time Seen by Provider: 09/29/21 14:45 Source of Information: Reports: Patient, RN Notes Reviewed History Limitations: Reports: No Limitations - History of Present Illness INITIAL COMMENTS - FREE TEXT/NARRATIVE: This patient presents to the emergency department for evaluation of a laceration to his hand. He states he was washing dishes when something cut his hand in the dish yadav. He has a laceration to the dorsum of his left hand. He denies other injuries or concerns. - Related Data Allergies Allergy/AdvReac Type Severity Reaction Status Date / Time banana Allergy Other Verified 07/06/21 15:50 clarithromycin Allergy Hives Verified 07/06/21 15:50 Home Meds: Home Meds Calcium Citrate/Vitamin D3 [Calcium Citrate + D] 1 each PO BID 12/10/13 [History] Cholecalciferol (Vitamin D3) [D3-2000] 2,000 unit PO DAILY 12/10/13 [History] Magnesium Oxide [Magnesium] 400 mg PO DAILY 12/10/13 [History] Gabapentin [Neurontin] 800 mg PO TID 01/10/15 [History] lamoTRIgine [Lamictal] 200 mg PO BID 07/15/15 [History] Acetaminophen 1 - 2 tab PO QID PRN 11/10/18 [History] Ferrous Sulfate [Ferosul] 325 mg PO DAILY 11/10/18 [History] Benztropine Mesylate 0.5 mg PO BID 02/06/19 [History] Cyanocobalamin (Vitamin B12) [Vitamin B12] 1,000 mcg IM ASDIRECTED 02/06/19 [History] Levothyroxine 25 mcg PO ACBREAKFAST 02/06/19 [History] Multivit-Min/FA/Lycopen/Lutein [Certavite Sr with Lutein Tab] 1 each PO DAILY [History] OLANZapine [Olanzapine] 5 mg OP DAILY 02/06/19 [History] OLANZapine [Olanzapine] 20 mg PO BEDTIME 11/14/20 [History] Zolpidem Tartrate [Ambien] 1.5 tab PO BEDTIME 11/14/20 [History] levETIRAcetam [Keppra] 1 tab PO BID 11/14/20 [History] lisinopriL [Lisinopril] 10 mg PO DAILY 07/07/21 [History] LORazepam [Ativan] 1 mg PO TID PRN 09/08/21 [History] Past Medical History HEENT History: Reports: None Gastrointestinal History: Reports: None Genitourinary History: Reports: Renal Calculus Musculoskeletal History: Reports: Fracture, Osteoporosis Other Musculoskeletal History: R wrist Fx 03/15/2017 Neurological History: Reports: Concussion, Head Trauma, Seizure Psychiatric History: Reports: ADHD, Addiction, Anxiety, Bipolar, Depression, Panic Attack, Schizophrenia, Suicide Attempt Other Psychiatric History: suicide attempt 02/27/2019 Endocrine/Metabolic History: Reports: Diabetes, Type II Other Endocrine/Metabolic History: Hx of diabetes, glucose good now that has lost 190#. Immunologic History: Reports: None Oncologic (Cancer) History: Reports: None - Infectious Disease History Infectious Disease History: Reports: Chicken Pox - Past Surgical History HEENT Surgical History: Reports: Adenoidectomy, Oral Surgery, Tonsillectomy GI Surgical History: Reports: Appendectomy, Bariatric Procedure, Cholecystectomy, Hernia, Abdominal Male Surgical History: Reports: None Endocrine Surgical History: Reports: None Musculoskeletal Surgical History: Reports: Other (See Below) Other Musculoskeletal Surgeries/Procedures:: Surgical fixation of R wrist Fx on 03/20/2017 Social & Family History - Family History Family Medical History: No Pertinent Family History - Caffeine Use Caffeine Use: Reports: Soda Caffeine Use Comment: diet soda ED ROS GENERAL - Review of Systems Review Of Systems: Comprehensive ROS is negative, except as noted in HPI. ED EXAM, GENERAL - Physical Exam Exam: See Below Exam Limited By: No Limitations General Appearance: Alert, WD/WN, Anxious Eye Exam: Bilateral Eye: PERRL Ears: Normal External Exam Nose: Normal Inspection Head: Atraumatic, Normocephalic Neck: Normal Inspection Respiratory/Chest: No Respiratory Distress, No Accessory Muscle Use Neurological: Alert, Oriented Psychiatric: Normal Affect Skin Exam: Warm, Dry, Wound/Incision (4 cm laceration to dorsum of left hand.) ED GENERAL MEDICAL PROCEDURES - Laceration/Wound Repair Left Midline Hand Lac/wound length in cm: 4 Appearance: Superficial, Linear, Clean Distal NVT: Neuro & Vascular Intact, No Tendon Injury Anesthetic Type: Local Local Anesthesia - Lidocaine (Xylocaine): 1% with EPI Local Anesthetic Volume: 5cc Skin Prep: Chlorhexidine (Hibiciens), Saline Saline irrigation (cc's): 150 Exploration/Debridement/Repair: Wound Explored, Explored to Base, No Foreign Material Found Closed with: Sutures Suture Size: 4-0 # of Sutures: 3 Suture Type: Mattress Drain Placement: No Sterile Dressing Applied: Provider Tetanus Status Addressed: Yes Complications: No Course - Re-Assessments/Exams Free Text/Narrative Re-Assessment/Exam: 09/29/21 15:35 This patient presents with a laceration to the left hand. The wound was carefully evaluated and explored. The laceration was closed with sutures as noted above. There is no evidence of muscular, tendon, or bony damage with this laceration. There are no evidence of foreign body. Possible complications including infection and scarring were discussed with the patient. He should follow-up with his primary care provided in 7 to 10 days for suture removal, sooner as needed. The patient was stable at the time of discharge. Departure - Departure Time of Disposition: 15:25 Disposition: Home, Self-Care 01 Condition: Good Clinical Impression: Laceration - Discharge Information *PRESCRIPTION DRUG MONITORING PROGRAM REVIEWED*: Not Applicable *COPY OF PRESCRIPTION DRUG MONITORING REPORT IN PATIENT HEMAL: Not Applicable Instructions: Laceration Care, Adult Referrals: PCP,None [Primary Care Provider] - Forms: ED Department Discharge
== END 2021-09-29 15:14 | disposition home or self-care (01) ==
LOC: LB.ED 14:44
DX: S61.412A Laceration without foreign body of left hand, initial encounter (principal); E11.9 Type 2 diabetes mellitus without complications; Z91.018 Allergy to other foods; Z88.1 Allergy status to other antibiotic agents; Z79.899 Other long term (current) drug therapy; W26.8XXA Contact with other sharp object(s), not elsewhere classified, initial encounter
CPT/HCPCS: 12002; 99282-25

== ENCOUNTER 2021-10-21 17:00 | Emergency (ER) | payer MEDICAID ==
[2021-10-21 17:21] VITALS: BP 129/74; PULSE 90
[2021-10-21] MEDS ORDERED: traMADol 50 MG Tab ONE (17:25)
== END 2021-10-21 17:30 | disposition home or self-care (01) ==
LOC: LB.ED 17:00
DX: M54.50 Low back pain, unspecified (principal); E11.9 Type 2 diabetes mellitus without complications; R56.9 Unspecified convulsions; Z88.1 Allergy status to other antibiotic agents; Z91.018 Allergy to other foods; Z79.899 Other long term (current) drug therapy
CPT/HCPCS: 99283; A9270-GY

== ENCOUNTER 2021-11-02 13:40 | Emergency (ER) | payer MEDICAID ==
[2021-11-02] MEDS ORDERED: Lidocaine 1% with EPINEPHrine 1:100,000 50 ML MDV INFILT ONE (13:45)
[2021-11-02 14:47] VITALS: PULSE 93
[2021-11-02] MEDS ORDERED: LORazepam 1 MG Tab ONE (15:54)
== END 2021-11-02 14:48 | disposition left against medical advice (07) ==
LOC: LB.ED 13:55
DX: S51.811A Laceration without foreign body of right forearm, initial encounter (principal); E11.9 Type 2 diabetes mellitus without complications; Z91.018 Allergy to other foods; Z88.1 Allergy status to other antibiotic agents; Z72.0 Tobacco use; Z79.899 Other long term (current) drug therapy; Z20.822 Contact with and (suspected) exposure to COVID-19; X99.1XXA Assault by knife, initial encounter; Y93.H1 Activity, digging, shoveling and raking
CPT/HCPCS: 12002; 36415; 80048; 80143; 80179; 80307; 81001; 85025; 99284-25; A0425; A0429; U0002

== ENCOUNTER 2021-11-02 16:06 | Emergency (ER) | payer MEDICAID ==
[2021-11-02] MEDS ORDERED: LORazepam 1 MG Tab PO ONE ×2 (16:27→22:52)
[2021-11-02 17:13] VITALS: PULSE 93
[2021-11-02] MEDS ORDERED: Acetaminophen 325 MG Tab ONE (22:48)
[2021-11-02] MEDS ORDERED: LORazepam 1 MG Tab ONE (22:48)
[2021-11-02] MEDS ORDERED: Acetaminophen 325 MG Tab PO ONE (22:52)
[2021-11-02] MEDS ORDERED: Zolpidem 5 MG Tab PO ONE (22:57)
[2021-11-03] MEDS ORDERED: Gabapentin 300 MG Cap ONE (01:21)
[2021-11-03] MEDS ORDERED: Gabapentin 100 MG Cap ONE ×2 (01:21→14:43)
[2021-11-03] MEDS ORDERED: Zolpidem 5 MG Tab ONE (01:22)
[2021-11-03] MEDS ORDERED: lamoTRIgine 100 MG Tab ONE (01:22)
[2021-11-03] MEDS ORDERED: levETIRAcetam 500 MG Tab ONE (01:23)
[2021-11-03] MEDS: traMADol 50 MG Tab PO PRN ×3 (01:31→14:34)
[2021-11-03] MEDS: levETIRAcetam 500 MG Tab PO SCH ×2 (01:31→09:48)
[2021-11-03] MEDS: lamoTRIgine 100 MG Tab PO SCH ×2 (01:33→09:47)
[2021-11-03] MEDS ORDERED: OLANZapine 5 MG Tab ONE (01:36)
[2021-11-03] MEDS: Gabapentin 800 MG Tab PO SCH ×3 (01:37→14:34)
[2021-11-03] MEDS ORDERED: Levothyroxine 25 MCG Tab PO SCH (07:00)
[2021-11-03] MEDS ORDERED: Lisinopril 10 MG Tab PO SCH (08:00)
[2021-11-03 09:48] VITALS: BP 155/90
[2021-11-03] MEDS ORDERED: LORazepam 1 MG Tab PO ONE (12:43)
[2021-11-03] MEDS ORDERED: Gabapentin 600 MG Tab ONE (14:42)
== END 2021-11-03 15:45 ==
LOC: LB.ED 16:06
DX: S51.811A Laceration without foreign body of right forearm, initial encounter (principal); E11.9 Type 2 diabetes mellitus without complications; Z88.1 Allergy status to other antibiotic agents; Z91.018 Allergy to other foods; Z79.899 Other long term (current) drug therapy; X78.1XXA Intentional self-harm by knife, initial encounter
CPT/HCPCS: 99285; A0425; A0429; A9270; 99283